=== PATIENT | female | born 1980 | race Hispanic/Latino ===

== ENCOUNTER 2020-06-15 20:55 | Emergency (ER) | payer SELFPAY ==
[2020-06-16 01:09] LABS: Basophils % 0.2 % (0-1.3); Hematocrit 30.8 % (36.0-45.0); Lymphocytes % 32.2 % (15.3-44.8); MPV 9.1 fL (7.6-11.3); RBC Red Blood Cell Count 5.34 M/uL (3.86-4.86)
[2020-06-16 01:34] LABS: ALT/SGPT 29 U/L (12-78); AST/SGOT 18 U/L (15-37); Albumin 4.1 g/dL (3.4-5.0); Alkaline Phosphatase 98 U/L (45-117); BUN Blood Urea Nitrogen 11 mg/dL (7-18); Bicarbonate 28 mmol/L (21-32); Bilirubin Direct < 0.1 mg/dL (0-0.2); Bilirubin Total 0.2 mg/dL (0.2-1.0); Glucose Level 81 mg/dL (74-106); Magnesium 2.1 mg/dL (1.8-2.4); NT PRO-BNP 60 pg/mL (<125); Potassium 3.2 mmol/L (3.5-5.1); Sodium Level 141 mmol/L (136-145); Troponin (Emerg Dept Use Only) < 0.02 ng/mL (0.0-0.045)
[2020-06-16 01:42] LABS: Anisocytosis 1+; Blood Morphology Comment NOTED (NOT SEEN); Hypochromasia 3+; Platelet Estimate INCR; White Blood Cell Scan OK (OK)
--- NOTE | 2020-06-16 01:47 | ER ---
Nurse's Notes [facility] Name: Juliana Marc Age: 40 yrs Sex: Female : 1980 Arrival Date: 06/15/2020 Time: 21:00 Bed 19 Private MD: Diagnosis: Hypokalemia;Iron deficiency anemia, unspecified;Essential (primary) hypertension;Weakness Presentation: 06/15 21:05 Chief complaint: Patient states: "I did some lab work last month and they said my aj1 hemoglobin was low and they said they wanted me to come to the emergency room but I felt fine so I didn't want to go. I went back yesterday and they said that it was lower and my doctor said she really wanted me to go to the emergency room, but I still didn't want to come. But then today I started feeling dizzy." States that she has not had abnormal bleeding that she is aware of. States that her hemoglobin was 8.5 last Friday. Coronavirus screen: At this time, the client does not indicate any symptoms associated with coronavirus-19. Ebola Screen: Patient denies travel to an Ebola-affected area in the 21 days before illness onset. Initial Sepsis Screen: Does the patient meet any 2 criteria? HR > 90 bpm. No. Patient's initial sepsis screen is negative. Does the patient have a suspected source of infection? No. Patient's initial sepsis screen is negative. Risk Assessment: Do you want to hurt yourself or someone else? Patient reports no desire to harm self or others. Onset of symptoms was 2019. 21:05 Method Of Arrival: Ambulatory aj1 21:05 Acuity: ADELINA 3 aj1 Triage Assessment: 21:10 General: Appears in no apparent distress. comfortable, Behavior is calm, cooperative, aj1 appropriate for age. Pain: Denies pain. Neuro: Level of Consciousness is awake, alert, obeys commands, Oriented to person, place, time, situation, Moves all extremities. Gait is steady, Speech is normal, Reports dizziness. Cardiovascular: Patient's skin is warm and dry. Respiratory: Airway is patent Respiratory effort is even, unlabored, Respiratory pattern is regular, symmetrical. REEL MAN: 21:10 LMP 05/2020 aj1 Historical: - Allergies: 21:10 No Known Allergies; aj1 - Home Meds: 21:10 metformin 500 mg Oral TG24 1 tabs 2 times per day [Active]; lisinopril 5 mg Oral tab 3 aj1 tabs once daily [Active]; lovastatin 10 mg Oral tab 1 tab once daily [Active]; glimepiride 2 mg Oral tab 2 tabs twice daily [Active]; Iron CR 325 mg Oral daily [Active]; - PMHx: 21:10 Diabetes - NIDDM; Hypertension; Hyperlipidemia; thyroid cancer; aj1 - Immunization history:: Flu vaccine is not up to date. - Social history:: Smoking status: Patient/guardian denies using tobacco. Screenin/18 00:00 Abuse screen: Denies threats or abuse. Denies injuries from another. Nutritional aj1 screening: No deficits noted. Tuberculosis screening: No symptoms or risk factors identified. 02:42 Fall Risk None identified. aj1 Assessment: 00:00 General: Appears in no apparent distress. comfortable, Behavior is calm, cooperative, aj1 appropriate for age. Pain: Denies pain. Neuro: Level of Consciousness is awake, alert, obeys commands, Oriented to person, place, time, situation, Moves all extremities. Full function Gait is steady, Speech is normal, Facial symmetry appears normal, Reports dizziness. Cardiovascular: Denies chest pain, shortness of breath, Heart tones S1 S2 present Patient's skin is warm and dry. Rhythm is sinus rhythm. Respiratory: Airway is patent Respiratory effort is even, unlabored, Respiratory pattern is regular, symmetrical. GI: No signs and/or symptoms were reported involving the gastrointestinal system. : No signs and/or symptoms were reported regarding the genitourinary system. EENT: No signs and/or symptoms were reported regarding the EENT system. Derm: No signs and/or symptoms reported regarding the dermatologic system. Skin is pink, warm \\T\\ dry. normal. Musculoskeletal: No signs and/or symptoms reported regarding the musculoskeletal system. Amputation of. 01:00 Reassessment: Patient appears in no apparent distress at this time. No changes from aj1 previously documented assessment. Patient and/or family updated on plan of care and expected duration. Pain level reassessed. Patient is alert, oriented x 3, equal unlabored respirations, skin warm/dry/pink. 02:00 Reassessment: Patient appears in no apparent distress at this time. No changes from aj1 previously documented assessment. Patient and/or family updated on plan of care and expected duration. Pain level reassessed. Patient is alert, oriented x 3, equal unlabored respirations, skin warm/dry/pink. Vital Signs: 06/15 21:05 BP 168 / 110; Pulse 107; Resp 18; Temp 97.8; Pulse Ox 100% on R/A; Weight 50.8 kg (R); aj1 Height 5 ft. 4 in. (162.56 cm) (R); Pain 0/10; 06/16 00:25 BP 164 / 106 Supine; Pulse 95; Resp 18; Pulse Ox 100% on R/A; aj1 00:27 BP 166 / 107 Sitting; Resp 94; aj1 00:30 BP 171 / 105 Standing; Pulse 98; aj1 01:30 BP 138 / 103; Pulse 94; Resp 18; Pulse Ox 100% on R/A; aj1 02:30 BP 153 / 105; Pulse 89; Resp 18; Pulse Ox 100% on R/A; aj1 06/15 21:05 Body Mass Index 19.22 (50.80 kg, 162.56 cm) aj1 ED Course: 06/15 21:00 Patient arrived in ED. am2 21:08 Triage completed. aj1 21:10 Arm band placed on Patient placed in waiting room, Patient notified of wait time. aj1 23:46 Damien Gonzalez MD is Attending Physician. [facility] 06/16 00:00 Patient has correct armband on for positive identification. Placed in gown. Bed in low aj1 position. Call light in reach. Side rails up X 1. monitor technician on. Pulse ox on. NIBP on. 00:00 No provider procedures requiring assistance completed. Inserted saline lock: 20 gauge aj1 in right antecubital area, using aseptic technique. Blood collected. 00:07 Tammy Kingston, RN is Primary Nurse. aj1 03:37 IV discontinued, intact, bleeding controlled, No redness/swelling at site. Pressure aj1 dressing applied. Administered Medications: 00:00 Drug: NS 0.9% 500 ml Route: IV; Rate: bolus; Site: right antecubital; aj1 03:37 Follow up: IV Status: Completed infusion; IV Intake: 500ml aj1 00:00 Drug: NS 0.9% 1000 ml Route: IV; Rate: 125 ml/hr; Site: right antecubital; aj1 03:37 Follow up: IV Status: Completed infusion; IV Intake: 250ml aj1 02:35 Drug: Potassium Effervescent Tablet 25 mEq Route: PO; aj1 03:37 Follow up: Response: No adverse reaction aj1 Intake: 03:37 IV: 250ml; Total: 250ml. aj1 03:37 IV: 500ml; Total: 750ml. aj1 Outcome: 01:46 Discharge ordered by . will 03:40 Discharged to home ambulatory. aj1 03:40 Condition: good 03:40 Discharge instructions given to patient, Instructed on discharge instructions, follow up and referral plans. medication usage, Demonstrated understanding of instructions, follow-up care, medications, Prescriptions given X 1. 03:40 Patient left the ED. aj1 Signatures: Tammy Kingston RN RN aj1 Damien Gonzalez MD MD cha Moreno, Amanda am2
--- NOTE | 2020-06-16 01:47 | EDPHYS ---
Physician Documentation [facility] Name: Juliana Marc Age: 40 yrs Sex: Female : 1980 Arrival Date: 06/15/2020 Time: 21:00 Bed 19 Private MD: ED Physician Damien Gonzalez HPI: 06/16 01:42 This 40 yrs old Female presents to ER via Ambulatory with complaints of will General Weakness, low hemoglobin. 01:42 weak, tired, sob, no fever , no pain. Onset: The symptoms/episode began/occurred 1 will day(s) ago. Severity of symptoms: At their worst the symptoms were mild moderate in the emergency department the symptoms have improved mildly. The patient has experienced similar episodes in the past, a few times. [employer] SOL[employer] ARCHITECT: 06/15 21:10 LMP 05/2020 aj1 Historical: - Allergies: 21:10 No Known Allergies; aj1 - Home Meds: 21:10 metformin 500 mg Oral TG24 1 tabs 2 times per day [Active]; lisinopril 5 mg Oral tab 3 aj1 tabs once daily [Active]; lovastatin 10 mg Oral tab 1 tab once daily [Active]; glimepiride 2 mg Oral tab 2 tabs twice daily [Active]; Iron CR 325 mg Oral daily [Active]; - PMHx: 21:10 Diabetes - NIDDM; Hypertension; Hyperlipidemia; thyroid cancer; aj1 - Immunization history:: Flu vaccine is not up to date. - Social history:: Smoking status: Patient/guardian denies using tobacco. ROS: 06/16 01:43 Constitutional: Negative for fever, chills, and weight loss, Eyes: Negative for injury, will pain, redness, and discharge, ENT: Negative for injury, pain, and discharge, Neck: Negative for injury, pain, and swelling, Cardiovascular: Negative for chest pain, palpitations, and edema, Respiratory: Negative for shortness of breath, cough, wheezing, and pleuritic chest pain, Abdomen/GI: Negative for abdominal pain, nausea, vomiting, diarrhea, and constipation, Back: Negative for injury and pain, : Negative for injury, bleeding, discharge, and swelling, MS/Extremity: Negative for injury and deformity, Psych: Negative for depression, anxiety, suicide ideation, homicidal ideation, and hallucinations, Allergy/Immunology: Negative for hives, rash, and allergies, Endocrine: Negative for neck swelling, polydipsia, polyuria, polyphagia, and marked weight changes, Hematologic/Lymphatic: Negative for swollen nodes, abnormal bleeding, and unusual bruising. Skin: Positive for pallor. Neuro: Positive for weakness. Exam: 01:43 Constitutional: This is a well developed, well nourished patient who is awake, alert, will and in no acute distress. Head/Face: Normocephalic, atraumatic. Eyes: Pupils equal round and reactive to light, extra-ocular motions intact. Lids and lashes normal. Conjunctiva and sclera are non-icteric and not injected. Cornea within normal limits. Periorbital areas with no swelling, redness, or edema. ENT: Nares patent. No nasal discharge, no septal abnormalities noted. Tympanic membranes are normal and external auditory canals are clear. Oropharynx with no redness, swelling, or masses, exudates, or evidence of obstruction, uvula midline. Mucous membranes moist. Neck: Trachea midline, no thyromegaly or masses palpated, and no cervical lymphadenopathy. Supple, full range of motion without nuchal rigidity, or vertebral point tenderness. No Meningismus. Chest/axilla: Normal chest wall appearance and motion. Nontender with no deformity. No lesions are appreciated. Cardiovascular: Regular rate and rhythm with a normal S1 and S2. No gallops, murmurs, or rubs. Normal PMI, no JVD. No pulse deficits. Respiratory: Lungs have equal breath sounds bilaterally, clear to auscultation and percussion. No rales, rhonchi or wheezes noted. No increased work of breathing, no retractions or nasal flaring. Abdomen/GI: Soft, non-tender, with normal bowel sounds. No distension or tympany. No guarding or rebound. No evidence of tenderness throughout. Back: No spinal tenderness. No costovertebral tenderness. Full range of motion. Skin: Warm, dry with normal turgor. Normal color with no rashes, no lesions, and no evidence of cellulitis. MS/ Extremity: Pulses equal, no cyanosis. Neurovascular intact. Full, normal range of motion. Neuro: Awake and alert, GCS 15, oriented to person, place, time, and situation. Cranial nerves II-XII grossly intact. Motor strength 5/5 in all extremities. Sensory grossly intact. Cerebellar exam normal. Normal gait. Psych: Awake, alert, with orientation to person, place and time. Behavior, mood, and affect are within normal limits. 01:48 Musculoskeletal/extremity: DVT Exam: No signs of deep vein thrombosis. no pain, no will swelling, no tenderness, negative Homans' sign noted on exam, no appreciated bluish discoloration, no erythema, no increased warmth. 01:49 ECG was reviewed by the Attending Physician. [facility] Vital Signs: 06/15 21:05 BP 168 / 110; Pulse 107; Resp 18; Temp 97.8; Pulse Ox 100% on R/A; Weight 50.8 kg (R); aj1 Height 5 ft. 4 in. (162.56 cm) (R); Pain 0/10; 06/16 00:25 BP 164 / 106 Supine; Pulse 95; Resp 18; Pulse Ox 100% on R/A; aj1 00:27 BP 166 / 107 Sitting; Resp 94; 1 00:30 BP 171 / 105 Standing; Pulse 98; 1 01:30 BP 138 / 103; Pulse 94; Resp 18; Pulse Ox 100% on R/A; 1 02:30 BP 153 / 105; Pulse 89; Resp 18; Pulse Ox 100% on R/A; aj 06/15 21:05 Body Mass Index 19.22 (50.80 kg, 162.56 cm) [facility] MDM: 06/15 23:47 Patient medically screened. [facility] 06/16 01:44 Differential Diagnosis flu. Data reviewed: vital signs, nurses notes, lab test [facility] result(s), EKG, radiologic studies, plain films. Data interpreted: media monitor: rate is 107 beats/min, Pulse oximetry: on room air is 100 %. Test interpretation: by ED physician or midlevel provider: ECG, plain radiologic studies. Counseling: I had a detailed discussion with the patient and/or guardian regarding: the historical points, exam findings, and any diagnostic results supporting the discharge/admit diagnosis, lab results. 06/15 23:45 Order name: Basic Metabolic Panel [facility] 06/15 23:45 Order name: CBC with Diff [facility] 06/15 23:45 Order name: LFT's [facility] 06/15 23:45 Order name: Magnesium [facility] 06/15 23:45 Order name: NT PRO-BNP [facility] 06/15 23:45 Order name: Troponin (emerg Dept Use Only) [facility] 06/15 23:45 Order name: Type And Screen [facility] 06/16 01:01 Order name: Urine --Ancillary (enter results) tt 06/16 01:01 Order name: Urine Dipstick--Ancillary (enter results) [facility] 06/16 01:17 Order name: CBC with Automated Diff; Complete Time: 01:48 EDID 06/16 01:34 Order name: Basic Metabolic Panel; Complete Time: 01:36 EDID 06/16 01:34 Order name: Liver (Hepatic) Function; Complete Time: 01:36 EDID 06/16 01:34 Order name: Troponin (Emerg Dept Use Only); Complete Time: 01:36 EDID 06/16 01:34 Order name: NT PRO-BNP; Complete Time: 01:36 EDID 06/15 23:45 Order name: XRAY Chest (1 view) [facility] 06/15 23:45 Order name: EKG; Complete Time: 12:17 [facility] 06/15 23:45 Order name: Cardiac monitoring; Complete Time: 01:19 [facility] 06/15 23:45 Order name: EKG - Nurse/Tech; Complete Time: 01:19 [facility] 06/15 23:45 Order name: IV Saline Lock; Complete Time: 01:19 [facility] 06/15 23:45 Order name: Labs collected and sent; Complete Time: 01:19 [facility] 06/15 23:45 Order name: O2 Per Protocol; Complete Time: 01:19 [facility] 06/15 23:45 Order name: O2 Sat Monitoring; Complete Time: 01:19 [facility] 06/15 23:45 Order name: Urine Dipstick-Ancillary (obtain specimen); Complete Time: 01:19 [facility] 06/15 23:45 Order name: Orthostatics; Complete Time: 00:35 [facility] 06/16 01:34 Order name: Magnesium; Complete Time: 01:36 EDID 06/16 01:43 Order name: CBC Smear Scan; Complete Time: 01:48 [facility] 06/16 01:53 Order name: Type and Screen EDMS EC:49 Rate is 90 beats/min. Rhythm is regular. QRS Hermon is Normal. HI interval is normal. QRS will interval is normal. QT interval is normal. No Q waves. T waves are Normal. No ST changes noted. Clinical impression: NSR w/ Non-specific ST/T Changes and No evidence of ischemia. Interpreted by me. Reviewed by me. Administered Medications: 00:00 Drug: NS 0.9% 500 ml Route: IV; Rate: bolus; Site: right antecubital; 03:37 Follow up: IV Status: Completed infusion; IV Intake: 500ml aj 00:00 Drug: NS 0.9% 1000 ml Route: IV; Rate: 125 ml/hr; Site: right antecubital; 03:37 Follow up: IV Status: Completed infusion; IV Intake: 250ml 02:35 Drug: Potassium Effervescent Tablet 25 mEq Route: PO; 03:37 Follow up: Response: No adverse reaction aj Disposition: 06/16/20 01:46 Discharged to Home. Impression: Hypokalemia, Iron deficiency anemia, unspecified, Essential (primary) hypertension, Weakness. - Condition is Stable. - Discharge Instructions: Iron Deficiency Anemia, Adult, Anemia, Nonspecific, Iron-Rich Diet, Potassium Content of Foods, Hypertension, Weakness, Fatigue, Hypertension, [id number], How to Take Your Blood Pressure, Pwau-[id number], Weakness, [id number], Iron Deficiency Anemia, Adult, [id number], Hypokalemia, Managing Your Hypertension. - Prescriptions for Ferrous Sulfate 325 mg (65 mg Iron) Oral Tablet - take 1 tablet by ORAL route every 8 hours; 90 tablet. - Medication Reconciliation Form, Thank You Letter, Antibiotic Education, Prescription Opioid Use form. - Follow up: Private Physician; When: 2 - 3 days; Reason: Recheck today's complaints, Continuance of care, Re-evaluation by your physician. - Problem is new. - Symptoms have improved. Signatures: Dispatcher [employer] EDTammy Escobar RN RN aj1 Damien Gonzalez MD MD cha Corrections: (The following items were deleted from the chart) 03:40 01:46 06/16/2020 01:46 Discharged to Home. Impression: Hypokalemia; Iron deficiency aj1 anemia, unspecified; Essential (primary) hypertension; Weakness. Condition is Stable. Forms are Medication Reconciliation Form, Thank You Letter, Antibiotic Education, Prescription Opioid Use. Follow up: Private Physician; When: 2 - 3 days; Reason: Recheck today's complaints, Continuance of care, Re-evaluation by your physician. Problem is new. Symptoms have improved. will
[2020-06-16] MEDS ORDERED: POTASSIUM 25 MEQ EFFERV TAB ONE (02:22)
[2020-06-16] MEDS ORDERED: NA CHLORIDE 0.9% 1,000 ML ONE (02:22)
--- NOTE | 2020-06-16 08:10 | RAD REPORT ---
EXAM DESCRIPTION: RAD - Chest Single View - 06/16/2020 7:34 am CLINICAL HISTORY: MALAISE, shortness of breath TECHNIQUE: AP portable chest image was obtained 06/16/2020 7:34 am . FINDINGS: Lungs are clear. Heart and vasculature are normal. No measurable pleural effusion and no p neumothorax. No acute bony abnormality seen. No acute aortic findings suspected. IMPRESSION: No acute cardiopulmonary process.
[2020-06-16 12:19] LABS: Urine Blood NEGATIVE (NEG); Urine Glucose NEGATIVE (NEG); Urine Protein 2+ (NEG); Urine Specific Gravity >1.030 (1.005-1.030); Urine pH 5.5 (5.0-7.0)
--- NOTE | 2020-06-17 14:01 | EKG ---
Test Date: 2020-06-16 Test Time: 01:01:54 Piggyback Clerk: ELIEZER MEASUREMENT RESULTS: Intervals: Rate: 90 DE: 140 QRSD: 80 QT: 392 QTc: 479 [place]: P: 47 DE: 140 QRS: 36 T: 45 INTERPRETIVE STATEMENTS: Normal sinus rhythm Normal ECG No previous ECG available for comparison Electronically Signed On 06-17-20 13:58:42 MAGAZINE HAND by Mk Contreras
[2020-06-19 11:26] VITALS: TEMP 97.8; O2SAT 100
[2020-06-19 11:32] VITALS: BP 153/105
== END 2020-06-16 03:40 | disposition home or self-care (01) ==
LOC: ER 20:55
DX: D50.9 Iron deficiency anemia, unspecified (principal); E87.6 Hypokalemia; I10 Essential (primary) hypertension; E11.9 Type 2 diabetes mellitus without complications; E78.5 Hyperlipidemia, unspecified; Z85.850 Personal history of malignant neoplasm of thyroid
CPT/HCPCS: 36415; 71045; 80048; 80076; 81003; 81025; 83735; 83880; 84484; 85025; 86850; 86900; 86901; 93005; 96360; 96361; 99284; J7030

== ENCOUNTER 2021-04-10 09:23 | Inpatient (IN) | payer SELFPAY ==
[2021-04-10 10:03] LABS: Urine Blood Trace-intact (Negative); Urine Glucose 1+ (Negative); Urine Protein 3+ (Negative); Urine Specific Gravity >=1.030 (1.005-1.030)
[2021-04-10 10:09] LABS: Protime INR 0.98
[2021-04-10 10:10] LABS: Absolute Lymphocytes (CBC) 1.1 K/uL (0.7-4.9); Hematocrit 27.1 % (36.0-45.0); Lymphocytes % 12.5 % (15.3-44.8); MPV 8.7 fL (7.6-11.3); RBC Red Blood Cell Count 4.93 M/uL (3.86-4.86)
[2021-04-10 10:29] LABS: ALT/SGPT 20 U/L (12-78); AST/SGOT 10 U/L (15-37); Albumin 3.6 g/dL (3.4-5.0); Alkaline Phosphatase 121 U/L (45-117); BUN Blood Urea Nitrogen 12 mg/dL (7-18); Bicarbonate 24 mmol/L (21-32); Bilirubin Direct < 0.1 mg/dL (0-0.2); Bilirubin Total 0.3 mg/dL (0.2-1.0); Glucose Level 276 mg/dL (74-106); Magnesium 1.7 mg/dL (1.8-2.4); NT PRO-BNP 36 pg/mL (<125); Potassium 3.9 mmol/L (3.5-5.1); Protein, Total 8.5 g/dL (6.4-8.2); Sodium Level 133 mmol/L (136-145); T3 Free 1.86 pg/mL (2.18-3.98); Troponin (Emerg Dept Use Only) < 0.02 ng/mL (0.0-0.045)
--- NOTE | 2021-04-10 10:33 | RAD REPORT ---
EXAM DESCRIPTION: CT - Head Brain Wo Cont - 04/10/2021 10:20 am CLINICAL HISTORY: Confused;Dizziness Headache, drowsiness COMPARISON: No comparisons TECHNIQUE: All CT scans are performed using dose optimization technique as appropriate and may inclu de automated exposure control or mA/KV adjustment according to patient size. FINDINGS: No intracranial hemorrhage, hydrocephalus or extra-axial fluid collection.An area of dimin ished density is seen in the right occipital lobe measuring 18 x 15 mm. [place]on area of diminished den sity is also seen in the right frontal lobe measuring 16 x 10 mm small rounded area of diminished den sity noted right parietal lobe measuring 8 x 7 mm. MRI the brain with contrast is recommended for fur ther assessment. The paranasal sinuses and mastoids are clear. The calvarium is intact. IMPRESSION: Areas of focal diminished density are seen particularly in the right cerebral hemisphere which are nonspecific. However, is recommended the patient undergo MRI of the brain with contrast fo r further assessment.
--- NOTE | 2021-04-10 10:57 | EKG ---
Test Date: 2021-04-10 Test Time: 09:46:06 Gluing Machine Operator Electronic: CANDACE MEASUREMENT RESULTS: Intervals: Rate: 121 PA: 128 QRSD: 74 QT: 330 QTc: 468 [place]: P: 48 PA: 128 QRS: 40 T: 45 INTERPRETIVE STATEMENTS: Sinus tachycardia Otherwise normal ECG Compared to ECG 06/16/2020 01:01:54 Sinus rhythm no longer present Electronically Signed On 04-10-21 10:56:43 CDT by Mk Contreras
[2021-04-10 11:38] LABS: Blood Morphology Comment NOTED (NOT SEEN); Elliptocytes 1+; Hypochromasia 3+; Platelet Estimate INCR; Platelets, Giant NOTED; Polychromasia SLIGHT; White Blood Cell Scan OK (OK)
[2021-04-10 14:30] LABS: Urine Specific Gravity/Preg >1.030 (1.005-1.030)
--- NOTE | 2021-04-10 15:07 | RAD REPORT ---
EXAM DESCRIPTION: RAD - Chest Single View - 04/10/2021 11:03 am CLINICAL HISTORY: speech Chest pain. COMPARISON: Chest Single View dated 06/16/2020 FINDINGS: Portable technique limits examination quality. The lungs are grossly clear. The heart is normal in size. No displaced fractures. IMPRESSION: No acute intrathoracic process suspected.
--- NOTE | 2021-04-10 15:56 | RAD REPORT ---
EXAM DESCRIPTION: MRI - Brain W/Wo Cont - 04/10/2021 3:18 pm CLINICAL HISTORY: Dizziness COMPARISON: Same-day head CT TECHNIQUE: Sagittal and axial T1-weighted images were obtained. Axial PD/heavily T2-weighted and T2- FLAIR images were obtained along with axial DWI/ADC mapping sequences. Axial and coronal post-contras t T1-weighted images were also obtained. FINDINGS: No intracranial hemorrhage, mass or acute infarction. Multifocal acute infarcts scattered throughout the right cerebral hemisphere, particularly within the subcortical and deep white matter. There are a few small cortical infarcts. There are some nodular areas of enhancement in the right par ietal lobe. Mastoid air cells and paranasal sinuses are clear. IMPRESSION: Multiple right-sided cerebral infarcts, the majority of which appear acute. These are pr imarily right MCA territory and watershed location. A couple of the areas of infarct enhance which wo uld be more typical of a subacute infarct. Therefore, acute on subacute infarcts is within the differ ential.
--- NOTE | 2021-04-10 16:43 | ER ---
Nurse's Notes [facility] Name: Juliana Marc Age: 41 yrs Sex: Female : 1980 Arrival Date: 04/10/2021 Time: 09:25 Bed 16 Private MD: Diagnosis: Multiple acute and subacute cerebral infarcts Presentation: 04/10 09:27 Chief complaint: Patient states: Tingling and numbness to L forearm that goes down to ss her L third and fourth fingers and difficulty speaking that began Friday morning when she woke up. Coronavirus screen: Client denies travel out of the [place] in the last 14 days. Ebola Screen: Patient denies exposure to infectious person. Patient denies travel to an Ebola-affected area in the 21 days before illness onset. No acute neurological deficit is noted. Pre-hospital glucose is not applicable to this patient. Initial Sepsis Screen: Does the patient have a suspected source of infection?. Initial Sepsis Screen: Does the patient meet any 2 criteria? No. Patient's initial sepsis screen is negative. Risk Assessment: Do you want to hurt yourself or someone else? Patient reports no desire to harm self or others. Onset of symptoms was April 07, 2021. 09:27 Method Of Arrival: Ambulatory ss 09:27 Acuity: ADELINA 2 ss Triage Assessment: 09:45 General: Appears well developed, well nourished, Behavior is cooperative, appropriate es2 for age. 09:56 The onset of the patients symptoms was April 07, 2021 at 08:00. Pain: Denies pain. es2 Neuro: Reports numbness in left arm. 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 pt had tubal ligation es2 Stroke Activation: Symptom onset > 6 hours Physician: Stroke Attending; Name: ; Notified At: ; Arrived At: Physician: Chief Stroke Resident; Name: ; Notified At: ; Arrived At: Physician: Stroke Resident; Name: ; Notified At: ; Arrived At: Physician: ED Attending; Name: ; Notified At: ; Arrived At: Physician: ED Resident; Name: ; Notified At: ; Arrived At: Historical: - Allergies: 09:30 No Known Allergies; ss - Home Meds: 09:30 Iron CR 325 mg Oral daily [Active]; glimepiride 4 mg oral tab 1 tab BID [Active]; ss lisinopril 5 mg Oral tab 1 tab once daily [Active]; lovastatin 10 mg Oral tab 1 tab once daily [Active]; metformin 500 mg Oral TG24 1 tabs 2 times per day [Active]; - PMHx: 09:30 Diabetes - NIDDM; Hyperlipidemia; Hypertension; THYROID CANCER; ss - PSHx: 09:30 Throidectomy; ss - Immunization history:: Client reports receiving the 2nd dose of the Covid vaccine. - Social history:: Smoking status: Patient denies any tobacco usage or history of. Screenin:44 Abuse screen: Denies threats or abuse. Denies injuries from another. Nutritional es2 screening: No deficits noted. Tuberculosis screening: No symptoms or risk factors identified. Fall Risk IV access (20 points). Mental Status- Oriented to own ability (0 pts). Assessment: 09:44 The patient has not been NPO before screening. The patient is alert, and able to follow es2 commands. 09:53 VAN Scoring:. The patient does not exhibit slurred or garbled speech. The patient is es2 not exhibiting difficulty speaking. The patient does not exhibit difficulty understanding words. The patient is able to swallow own secretions with no drooling or need for suction. 10:03 Patient tolerated one teaspoon of water. No drooling, immediate coughing, gurgling, or es2 clearing of the throat was noted. The patient tolerated 90mL of water. No drooling, immediate coughing, gurgling, or clearing of the throat was noted. The patient passed the bedside swallow screening. Oral medications may be given as ordered. Contact Physician for further diet orders. Pain: Denies pain. Neuro: Level of Consciousness is awake, alert, obeys commands, Oriented to person, place, time, situation, Appropriate for age. 10:25 Provider notified of bedside swallow screening results: Kyle Wang MD. es2 10:54 Reassessment: Pt states that patient had thyroid surgery about 6 months ago. es2 Thought symptoms were related to low calcium, was taking tums at home. Restless legs got worse last night. Reports no slurred speech or confusion until today was talking on the phone. 11:34 T-PA (Activase) Screening: Contraindications:. es2 Vital Signs: 09:27 BP 210 / 133; Resp 18; Weight 52.16 kg; Height 5 ft. 4 in. (162.56 cm); Pain 0/10; ss 09:31 Pulse 121; Pulse Ox 100% on R/A; ss 09:43 BP 175 / 131; Pulse 119; Resp 15; Temp 98.9; Pulse Ox 97% on R/A; es2 10:12 BP 190 / 122; Pulse 113; Resp 16; Pulse Ox 100% on R/A; es2 10:58 BP 171 / 106; Pulse 111; Resp 22; Pulse Ox 100% on R/A; es2 11:03 BP 196 / 105; Pulse 112; Resp 13; Pulse Ox 100% on R/A; es2 11:18 BP 151 / 100; Pulse 111; Resp 18; Pulse Ox 100% on R/A; es2 11:33 BP 165 / 100; Pulse 117; Resp 13; Pulse Ox 100% on R/A; es2 13:19 BP 147 / 93; Pulse 103; Resp 18; Pulse Ox 100% on R/A; es2 13:33 BP 140 / 93; Pulse 103; Resp 17; Pulse Ox 100% on R/A; es2 14:36 BP 123 / 92; Pulse 106; Resp 18; Pulse Ox 99% on R/A; es2 15:44 BP 127 / 110; Pulse 106; Resp 17; Pulse Ox 100% on R/A; es2 20:28 BP 130 / 91; Pulse 107; Resp 20; Temp 98.6; Pulse Ox 100% on R/A; Pain 0/10; bs2 09:27 Body Mass Index 19.74 (52.16 kg, 162.56 cm) NIH Stroke Scale Scores: 09:53 NIHSS Score: 1 es2 ED Course: 09:25 Patient arrived in ED. as 09:29 Triage completed. ss 09:30 Arm band placed on right wrist. ss 09:32 Trina Waite RN is Primary Nurse. es2 09:34 Kyle Wang MD is Attending Physician. kdr 09:44 Patient has correct armband on for positive identification. Placed in gown. Bed in low es2 position. Call light in reach. 09:44 No provider procedures requiring assistance completed. es2 09:46 EKG done, by ED staff, reviewed by Kyle Wang MD. tw5 09:55 Inserted saline lock: 20 gauge in right antecubital area, using aseptic technique. kj1 Blood collected. 10:04 TSH Sent. es2 10:04 T4 Free Sent. es2 10:04 T3 Free Sent. es2 10:04 Basic Metabolic Panel Sent. es2 10:04 CBC with Diff Sent. es2 10:04 Magnesium Sent. es2 10:04 NT PRO-BNP Sent. es2 10:04 LFT's Sent. es2 10:05 Troponin (emerg Dept Use Only) Sent. es2 10:05 PT-INR Sent. es2 10:08 Urine --Ancillary (enter results) Sent. es2 10:20 CT Head Brain wo Cont In Process Unspecified. EDMS 11:04 XRAY Chest (1 view) In Process Unspecified. EDMS 15:18 MRI - Brain W/Wo Cont In Process Unspecified. EDMS 16:41 Isaías Lawrence DO is Hospitalizing Provider. kdr 20:29 Patient admitted, IV remains in place. bs2 Administered Medications: 17:11 Drug: Aspirin 81 mg Route: PO; es2 20:30 Follow up: Response: No adverse reaction bs2 17:11 Drug: foLIC Acid 1 mg Route: PO; es2 20:30 Follow up: Response: No adverse reaction bs2 Point of Care Testing: Blood Glucose: 09:55 Blood Glucose: 257 mg/dL; es2 Ranges: Outcome: 16:42 Decision to Hospitalize by Provider. kdr 20:40 Admitted to Med/surg accompanied by tech, via wheelchair, room 211, with chart, Report bs2 called to Kandy RN 20:40 Condition: improved 20:40 Instructed on the need for admit. 20:54 Patient left the ED. bs2 NIH Stroke Scale - NIH Stroke Score Date: 04/10/2021 Time: 09:53 Total Score = 1 1a. Level of Consciousness (LOC) - 0(Alert) 1b. Level of Consciousness (LOC) (Month \T\ Age) - 0(Both) 1c. LOC Commands (Open \T\ Closes Eyes/Storage Management Architect) - 0(Both) 2. Best Gaze (Lateral Gaze Paresis) - 0(Normal) 3. Visual Field Loss - 0(No visual loss) 4. Facial Palsy - 0(Normal) 5a. Left Arm: Motor (10-second hold) - 0(No drift) 5b. Right Arm: Motor (10-second hold) - 0(No drift) 6a. Left Leg: Motor (5-second hold - always test supine) - 0(No drift) 6b. Right Leg: Motor (5-second hold - always test supine) - 0(No drift) 7. Limb Ataxia (finger/nose \T\ heel/maradiaga - test with eyes open) - 0(Absent) 8. Sensory Loss (pinprick arms/legs/face) - 1(Mild to moderate loss) 9. Best Language: Aphasia (description/naming/reading) - 0(No aphasia) 10. Dysarthria (speech clarity - read or repeat words) - 0(Normal) 11. Extinction and Inattention (visual/tactile/auditory/spatial/personal) - 0(No abnormality) Initials: es2 Signatures: Dispatcher [employer] Kyle Waddell MD MD kdr Martinez, Amelia as Smirch, Shelby, WILLY RN ss Roeslia Carrion kjEsme Giraldo RN RN bs2 Trina Waite RN RN es2 Leonila Sol tw5
--- NOTE | 2021-04-10 16:43 | EDPHYS ---
Physician Documentation [facility] Name: Juliana Marc Age: 41 yrs Sex: Female : 1980 Arrival Date: 04/10/2021 Time: 09:25 Bed 16 Private MD: ED Physician Kyle Wang HPI: 04/11 16:56 This 41 yrs old Female presents to ER via Ambulatory with complaints of kdr Numbness, Trouble Talking. 16:56 The patient's problem is reported as paresthesias, in left upper extremity. Onset: The kdr symptoms/episode began/occurred Friday when she awoke was when it was first noted. Duration: The episode is continuous, The episodes are intermittent, Has waxed and waned better improved over time. Context: symptoms became apparent at an unknown time. Patient's baseline: Neuro: alert and fully oriented, Motor: no deficits, Ambulation: walks without assistance, Speech: normal. The patient has not experienced similar symptoms in the past. The patient has not recently seen a physician. Complains of numbness and tingling that is been intermittent in her left arm from her elbow down to her third and fourth fingers. The symptoms began on Friday morning when she woke up. She also has complained of some difficulty speaking that is presently resolved. 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 - Social history:: Smoking status: Patient denies any tobacco usage or history of. ROS: 04/11 16:56 Constitutional: Negative for fever, chills, and weight loss, Eyes: Negative for injury, kdr pain, redness, and discharge, Neck: Negative for injury, pain, and swelling, Cardiovascular: Negative for chest pain, palpitations, and edema, Respiratory: Negative for shortness of breath, cough, wheezing, and pleuritic chest pain, Abdomen/GI: Negative for abdominal pain, nausea, vomiting, diarrhea, and constipation, Back: Negative for injury and pain, : Negative for injury, bleeding, discharge, and swelling, MS/Extremity: Negative for injury and deformity, Skin: Negative for injury, rash, and discoloration, Psych: Negative for depression, anxiety, suicide ideation, homicidal ideation, and hallucinations, Allergy/Immunology: Negative for hives, rash, and allergies, Endocrine: Negative for neck swelling, polydipsia, polyuria, polyphagia, and marked weight changes, Hematologic/Lymphatic: Negative for swollen nodes, abnormal bleeding, and unusual bruising. Neuro: Positive for speech changes, tingling. Exam: 04/10 09:53 ECG was reviewed by the Attending Physician. kdr 04/11 16:56 Constitutional: This is a well developed, well nourished patient who is awake, alert, kdr and in no acute distress. Head/Face: Normocephalic, atraumatic. Eyes: Pupils equal round and reactive to light, extra-ocular motions intact. Lids and lashes normal. Conjunctiva and sclera are non-icteric and not injected. Cornea within normal limits. Periorbital areas with no swelling, redness, or edema. Neck: Trachea midline, no thyromegaly or masses palpated, and no cervical lymphadenopathy. Supple, full range of motion without nuchal rigidity, or vertebral point tenderness. No Meningismus. Chest/axilla: Normal chest wall appearance and motion. Nontender with no deformity. No lesions are appreciated. Cardiovascular: Regular rate and rhythm with a normal S1 and S2. No gallops, murmurs, or rubs. Normal PMI, no JVD. No pulse deficits. Respiratory: Lungs have equal breath sounds bilaterally, clear to auscultation and percussion. No rales, rhonchi or wheezes noted. No increased work of breathing, no retractions or nasal flaring. Abdomen/GI: Soft, non-tender, with normal bowel sounds. No distension or tympany. No guarding or rebound. No evidence of tenderness throughout. Back: No spinal tenderness. No costovertebral tenderness. Full range of motion. Skin: Warm, dry with normal turgor. Normal color with no rashes, no lesions, and no evidence of cellulitis. MS/ Extremity: Pulses equal, no cyanosis. Neurovascular intact. Full, normal range of motion. Neuro: Awake and alert, GCS 15, oriented to person, place, time, and situation. Cranial nerves II-XII grossly intact. Motor strength 5/5 in all extremities. Sensory grossly intact. Cerebellar exam normal. Normal gait. Psych: Awake, alert, with orientation to person, place and time. Behavior, mood, and affect are within normal limits. 17:00 Radiologist reports: Negative kdr Vital Signs: 04/10 09:27 BP 210 / 133; Resp 18; Weight 52.16 kg; Height 5 ft. 4 in. (162.56 cm); Pain 0/10; ss 09:31 Pulse 121; Pulse Ox 100% on R/A; ss 09:43 BP 175 / 131; Pulse 119; Resp 15; Temp 98.9; Pulse Ox 97% on R/A; es2 10:12 BP 190 / 122; Pulse 113; Resp 16; Pulse Ox 100% on R/A; es2 10:58 BP 171 / 106; Pulse 111; Resp 22; Pulse Ox 100% on R/A; es2 11:03 BP 196 / 105; Pulse 112; Resp 13; Pulse Ox 100% on R/A; es2 11:18 BP 151 / 100; Pulse 111; Resp 18; Pulse Ox 100% on R/A; es2 11:33 BP 165 / 100; Pulse 117; Resp 13; Pulse Ox 100% on R/A; es2 13:19 BP 147 / 93; Pulse 103; Resp 18; Pulse Ox 100% on R/A; es2 13:33 BP 140 / 93; Pulse 103; Resp 17; Pulse Ox 100% on R/A; es2 14:36 BP 123 / 92; Pulse 106; Resp 18; Pulse Ox 99% on R/A; es2 15:44 BP 127 / 110; Pulse 106; Resp 17; Pulse Ox 100% on R/A; es2 20:28 BP 130 / 91; Pulse 107; Resp 20; Temp 98.6; Pulse Ox 100% on R/A; Pain 0/10; bs2 09:27 Body Mass Index 19.74 (52.16 kg, 162.56 cm) ss NIH Stroke Scale Scores: 09:53 NIHSS Score: 1 es2 MDM: 16:42 Patient medically screened. kdr 04/11 16:56 Data reviewed: vital signs, nurses notes, lab test result(s), radiologic studies. kdr Counseling: I had a detailed discussion with the patient and/or guardian regarding: the historical points, exam findings, and any diagnostic results supporting the discharge/admit diagnosis, lab results, radiology results, the need for further work-up and treatment in the hospital. 04/10 09:35 Order name: Basic Metabolic Panel; Complete Time: 14:00 kdr 04/10 09:35 Order name: CBC with Diff; Complete Time: 14:00 kdr 04/10 09:35 Order name: LFT's; Complete Time: 14:00 kdr 04/10 09:35 Order name: Magnesium; Complete Time: 14:00 kdr 04/10 09:35 Order name: NT PRO-BNP; Complete Time: 14:00 kdr 04/10 09:35 Order name: PT-INR; Complete Time: 14:00 kdr 04/10 09:35 Order name: Troponin (emerg Dept Use Only); Complete Time: 14:00 kdr 04/10 09:36 Order name: T3 Free; Complete Time: 14:00 kdr 04/10 09:36 Order name: T4 Free; Complete Time: 14:00 kdr 04/10 09:36 Order name: TSH; Complete Time: 14:00 kdr 04/10 10:00 Order name: Glucose, Ancillary Testing; Complete Time: 14:00 EDMS 04/10 10:03 Order name: Urine Dipstick-Ancillary; Complete Time: 14:00 EDMS 04/10 10:07 Order name: Urine --Ancillary (enter results); Complete Time: 16:17 bd 04/10 10:17 Order name: CBC Smear Scan; Complete Time: 14:00 EDMS 04/10 09:35 Order name: XRAY Chest (1 view); Complete Time: 16:17 kdr 04/10 09:35 Order name: EKG; Complete Time: 09:36 kdr 04/10 09:35 Order name: Cardiac monitoring; Complete Time: 10:04 kdr 04/10 09:35 Order name: EKG - Nurse/Tech; Complete Time: 10:04 kdr 04/10 09:35 Order name: IV Saline Lock; Complete Time: 10:04 kdr 04/10 09:35 Order name: Labs collected and sent; Complete Time: 10:04 kdr 04/10 09:36 Order name: CT Head Brain wo Cont; Complete Time: 14:00 kdr 04/10 14:25 Order name: MRI - Brain W/Wo Cont; Complete Time: 16:17 kdr 04/10 17:18 Order name: COVID-19 : Document "Date of Symptom Onset" if Symptomatic. iw 04/10 19:37 Order name: Troponin I EDMS 04/10 19:37 Order name: Thyroid Stimulating Hormone EDMS 04/10 19:49 Order name: T4 Free EDMS 04/10 20:02 Order name: SARS-COV-2 RT PCR EDMS 04/10 09:35 Order name: O2 Per Protocol; Complete Time: 10:04 kdr 04/10 09:35 Order name: O2 Sat Monitoring; Complete Time: 10:04 kdr EC/12 09:53 Rate is 121 beats/min. Rhythm is regular, Sinus tachycardia with No ectopy. QRS [place] is kdr Normal. [place] interval is normal. QRS interval is normal. QT interval is normal. Clinical impression: Sinus tachycardia. Administered Medications: 17:11 Drug: Aspirin 81 mg Route: PO; es2 20:30 Follow up: Response: No adverse reaction bs2 17:11 Drug: foLIC Acid 1 mg Route: PO; es2 20:30 Follow up: Response: No adverse reaction bs2 Point of Care Testing: Blood Glucose: 09:55 Blood Glucose: 257 mg/dL; es2 Ranges: Critical Glucose Levels:Adult <50 mg/dl or >400 mg/dl <40 mg/dl or >180 mg/dl Disposition Summary: 04/10/21 16:42 Hospitalization Ordered Hospitalization Status: Observation kdr Provider: Isaías Lawrence Location: Telemetry/MedSurg (observation) kdr Condition: Fair kdr Problem: new kdr Symptoms: have improved kdr Bed/Room Type: Standard [facility] Room Assignment: 211(04/10/21 20:10) mw Diagnosis - Multiple acute and subacute cerebral infarcts kdr Forms: - Medication Reconciliation Form kdr - SBAR form kdr NIH Stroke Scale - NIH Stroke Score Date: 04/10/2021 Time: 09:53 Total Score = 1 1a. Level of Consciousness (LOC) - 0(Alert) 1b. Level of Consciousness (LOC) (Month \\T\\ Age) - 0(Both) 1c. LOC Commands (Open \\T\\ Closes Eyes/Video Journalist) - 0(Both) 2. Best Gaze (Lateral Gaze Paresis) - 0(Normal) 3. Visual Field Loss - 0(No visual loss) 4. Facial Palsy - 0(Normal) 5a. Left Arm: Motor (10-second hold) - 0(No drift) 5b. Right Arm: Motor (10-second hold) - 0(No drift) 6a. Left Leg: Motor (5-second hold - always test supine) - 0(No drift) 6b. Right Leg: Motor (5-second hold - always test supine) - 0(No drift) 7. Limb Ataxia (finger/nose \\T\\ heel/maradiaga - test with eyes open) - 0(Absent) 8. Sensory Loss (pinprick arms/legs/face) - 1(Mild to moderate loss) 9. Best Language: Aphasia (description/naming/reading) - 0(No aphasia) 10. Dysarthria (speech clarity - read or repeat words) - 0(Normal) 11. Extinction and Inattention (visual/tactile/auditory/spatial/personal) - 0(No abnormality) Initials: es2 Signatures: Dispatcher [employer] EDBeata Marvin RN RN Kyle Gamboa MD MD [facility] Lashay Valencia RN RN ss Trina Waite RN RN es2 Ravindra, Esme AGUILERA bs2 Corrections: (The following items were deleted from the chart) 20:10 16:42 [facility]
[2021-04-10] MEDS ORDERED: ASPIRIN 81 MG CHEWABLE TABLET ONE (16:56)
[2021-04-10] MEDS ORDERED: FOLIC ACID 1 MG TABLET ONE (16:57)
[2021-04-10] MEDS ORDERED: LABETALOL 20 MG/4ML SYRINGE IV PRN ×2 (18:03→18:05)
[2021-04-10] MEDS ORDERED: HYDROCODONE/APAP 5/325 MG TAB PO PRN (18:08)
[2021-04-10] MEDS ORDERED: ACETAMINOPHEN 500 MG TAB PO PRN (18:10)
[2021-04-10] MEDS ORDERED: ONDANSETRON 4 MG/2 ML VIAL IV PRN (18:10)
--- NOTE | 2021-04-10 18:15 | P.HP ---
Certification for Inpatient Patient admitted to: Inpatient With expected LOS: >2 Midnights Patient will require the following post-hospital care: None Practitioner: I am a practitioner with admitting privileges, knowledge of patient current condition, hospital course, and medical plan of care. Services: Services provided to patient in accordance with Admission requirements found in Title 42 Section 412.3 of the Code of Federal Regulations Patient History Date of Service: 04/10/21 Reason for admission: CVA History of Present Illness: Patient is a 41-year-old female with a past medical history significant for DM 2, HLD, hypertension, thyroid cancer, anxiety disorder who presents with complaint of left third and fourth fingers\left forearm numbness that has been ongoing for the past 3 days. Patient reported that she woke up with the symptoms 3 days ago. Patient reported that she developed slurred speech this morning. Patient reported associated signs and symptoms of poor gait and left hand construction grip. Patient denies any other signs and symptoms. Symptoms are aggravated or relieved by nothing. Patient decided to present to the hospital for medical evaluation. Of note, patient reported that she was out of her BP meds for 1 week because medications were not refilled as PCP wanted her to come to the office before refilling her medication. Patient reported that she was diagnosed with anxiety a couple of years ago but has not been on any medication. At time of assessment, slurred speech is resolved. Home medications list reviewed: No - Past Medical/Surgical History Diabetic: Yes -: Hypertension -: DM2 -: HLD -: Anxiety disorder -: Throidectomy - Family History Family History: Reviewed- Non-Contributory (Reviewed and noted. Patient unaware of any family history) - Social History Smoking Status: Never smoker Alcohol use: No CD- Drugs: No Caffeine use: No Place of Residence: Home Review of Systems General: Weakness, Malaise Eyes: Unremarkable ENT: Unremarkable Respiratory: Unremarkable Cardiovascular: Unremarkable Gastrointestinal: Unremarkable Genitourinary: Unremarkable Musculoskeletal: Other (Poor left hand construction grip ) Integumentary: Unremarkable Neurological: Numbness, Incoordination (Poor gait ), Change in Speech Physical Examination - Physical Exam General: Alert, In no apparent distress, Oriented x3 HEENT: Atraumatic, PERRLA, Mucous membr. moist/pink, EOMI, Sclerae nonicteric Neck: Supple, 2+ carotid pulse no bruit, No LAD, Without JVD or thyroid abnormality Respiratory: Clear to auscultation bilaterally, Normal air movement Cardiovascular: Regular rate/rhythm, Normal S1 S2 Capillary refill: <2 Seconds Gastrointestinal: Normal bowel sounds, No tenderness Musculoskeletal: No tenderness Integumentary: No rashes Neurological: Normal gait, Normal speech, Normal tone, Normal affect Lymphatics: No axilla or inguinal lymphadenopathy External genitalia: Deferred Rectal: Deferred - Studies Laboratory Data (last 24 hrs) 04/10/21 09:55: PT 11.3, INR 0.98 04/10/21 09:55: WBC 8.70, Hgb 8.1 L, Hct 27.1 L, Plt Count 482 H 04/10/21 09:55: Sodium 133 L, Potassium 3.9, BUN 12, Creatinine 0.73, Glucose 276 H, Magnesium 1.7 L, Total Bilirubin 0.3, AST 10 L, ALT 20, Alkaline Phosphatase 121 H Assessment and Plan - Plan --CVA. As noted on MRI--- Multiple right-sided cerebral infarcts, the majority of which appear acute. Neurologist consulted. Patient placed on aspirin. PT eval and treat. Echocardiogram and carotid Doppler pending for further evaluation. We will await further recommendation from neurologist. --Hypertension. We will allow permissive hypertension and treat for SBP greater than 180 mmHg with labetalol as needed. Echocardiogram and carotid Doppler pending. We will await further recommendation from neurologist. --DM2. BS monitoring with sliding scale insulin. --HLD. Continue statin. --Anxiety disorder. Ativan as needed. --Anemia of chronic disease. H&H stable. We will continue to monitor hemoglobin and transfuse if less than 7.0. --History of thyroid cancer. Status unknown. TSH and free T4 pending. Continue supportive care. --OBDULIO. Slight depreciation in kidney function from previous levels. Currently renal functions at CKD 2. Continue p.o. hydration. We will continue to monitor renal functions. --DVT prophylaxis with Lovenox subQ I have had discussion about advanced directives with the patient during this hospital admission. Addressed code status and goals of care. Spent more than 30 minutes. Case discussed withpatient and nurse. The following document was completed using voice recognition software. This can produce generation technician errors that can at times significantly distort words and phrases. Please interpret any aspect of the note that is nonsensical in light of this fact. Discharge Plan: Home Plan to discharge in: 48 Hours - Advance Directives Does patient have a Living Will: No Does patient have a Durable POA for Healthcare: No - Code Status/Comfort Care Code Status Assessed: Yes Code Status: Full Code Physician Review: Patient Assessed, Agree with Above Assessment and Plan Critical Care: No
[2021-04-10 19:29] LABS: Troponin I < 0.02 ng/mL (0.0-0.045)
[2021-04-10] MEDS ORDERED: LORazepam 2 MG/ML VIAL IV PRN (19:40)
[2021-04-10] MEDS: INSULIN -REGULAR HUMAN 50 UNIT/0.5 ML ML SQ SCH (21:00)
[2021-04-10] MEDS ORDERED: ATORVASTATIN 40 MG TAB PO SCH (21:00)
[2021-04-10 21:26] VITALS: BMI 19.7
--- NOTE | 2021-04-10 21:39 | RAD REPORT ---
EXAM DESCRIPTION: US - CP - 04/10/2021 9:28 pm CLINICAL HISTORY: CVS COMPARISON: Brain W/Wo Cont dated 04/10/2021; Head Brain Wo Cont dated 04/10/2021 TECHNIQUE: Real-time sonographic evaluation of both carotid systems was performed. Doppler interroga tion was performed with waveform tracing bilaterally. FINDINGS: Normal high resistance waveforms are noted in both external carotid arteries. The common c arotid arteries and internal carotid arteries show normal low resistance waveforms. No significant plaque formation is seen. Peak systolic and end diastolic velocity values and the ICA/ CCA ratios are in the non-hemodynamically significant range. Antegrade flow seen in both vertebral arteries. IMPRESSION: No significant atherosclerotic changes noted. No evidence of a hemodynamically significant stenosis.
[2021-04-10] MEDS: FOLIC ACID 1 MG TABLET PO SCH (21:57)
[2021-04-10] MEDS: ENOXAPARIN 40 MG/0.4 ML SQ SCH (21:57)
[2021-04-11 05:50] LABS: BUN Blood Urea Nitrogen 10 mg/dL (7-18); Bicarbonate 27 mmol/L (21-32); Glucose Level 226 mg/dL (74-106); Potassium 3.8 mmol/L (3.5-5.1); Sodium Level 134 mmol/L (136-145)
[2021-04-11 06:01] LABS: Absolute Lymphocytes (CBC) 1.7 K/uL (0.7-4.9); Hematocrit 24.3 % (36.0-45.0); Lymphocytes % 23.5 % (15.3-44.8); MPV 8.7 fL (7.6-11.3); RBC Red Blood Cell Count 4.47 M/uL (3.86-4.86)
[2021-04-11 06:57] LABS: RBC Red Blood Cell Count 4.49 M/uL (3.86-4.86)
[2021-04-11 06:58] LABS: Ferritin 2.9 ng/mL (8-388)
[2021-04-11] MEDS: INSULIN -REGULAR HUMAN 50 UNIT/0.5 ML ML SQ SCH ×2 (07:30→11:30)
[2021-04-11] MEDS ORDERED: MAGNESIUM SULFATE 1 gm IVPB 1 GM/100 ML BAG IV ONE (08:00)
[2021-04-11] MEDS ORDERED: GLIMEPIRIDE 2 MG TABLET PO SCH (08:00)
[2021-04-11] MEDS: ENOXAPARIN 40 MG/0.4 ML SQ SCH (08:04)
[2021-04-11] MEDS: FOLIC ACID 1 MG TABLET PO SCH (08:04)
[2021-04-11] MEDS ORDERED: POTASSIUM 25 MEQ EFFERV TAB PO ONE (09:00)
[2021-04-11] MEDS ORDERED: ASPIRIN 81 MG CHEWABLE TABLET PO SCH (09:00)
[2021-04-11] MEDS ORDERED: PNEUMOCOCCAL VACCINE 0.5 ML IMVAC ONE (09:00)
[2021-04-11] MEDS ORDERED: SOD FERRIC GLUC COMPLX/SUCROSE 250 MG in NA CHLORIDE 0.9% 250 ML IV SCH (11:30)
[2021-04-11 11:31] LABS: Urine Appearance CLEAR (Clear); Urine Bilirubin NEGATIVE (Negative); Urine Blood NEGATIVE (Negative); Urine Color YELLOW (Yellow); Urine Glucose 1+ (Negative); Urine Protein 1+ (Negative)
[2021-04-11 11:32] LABS: Urine Microscopic Reflex ORDER UMIC
[2021-04-11 11:39] LABS: Urine Bacteria <20 /HPF (<20); Urine Mucus 2+ /HPF (NONE SEEN); Urine RBC <5 /HPF (NONE SEEN)
[2021-04-11 11:56] VITALS: O2SAT 95
--- NOTE | 2021-04-11 15:35 | P.DS ---
Admission Date: 04/10/21 Discharge Date: 04/11/21 Disposition: ROUTINE DISCHARGE Discharge Condition: GOOD Reason for Admission: CVA Consultations: Neurology - Dr. Mon Procedures: CT head (04/10): FINDINGS: No intracranial hemorrhage, hydrocephalus or extra-axial fluid collection.An area of diminished density is seen in the right occipital lobe measuring 18 x 15 mm. Pompey area of diminished density is also seen in the right frontal lobe measuring 16 x 10 mm small rounded area of diminished density noted right parietal lobe measuring 8 x 7 mm. MRI the brain with contrast is recommended for further assessment. The paranasal sinuses and mastoids are clear. The calvarium is intact. IMPRESSION: Areas of focal diminished density are seen particularly in the right cerebral hemisphere which are nonspecific. However, is recommended the patient undergo MRI of the brain with contrast for further assessment. MRI Brain (04/10): FINDINGS: No intracranial hemorrhage, mass or acute infarction. Multifocal acute infarcts scattered throughout the right cerebral hemisphere, particularly within the subcortical and deep white matter. There are a few small cortical infarcts. There are some nodular areas of enhancement in the right parietal lobe. Mastoid air cells and paranasal sinuses are clear. IMPRESSION: Multiple right-sided cerebral infarcts, the majority of which appear acute. These are primarily right MCA territory and watershed location. A couple of the areas of infarct enhance which would be more typical of a subacute infarct. Therefore, acute on subacute infarcts is within the differential. Carotid ultrasound (04/10): IMPRESSION: No significant atherosclerotic changes noted. No evidence of a hemodynamically significant stenosis. Problem list Acute CVA, R MCA territory / watershed location Hypertension, uncontrolled Diabetes mellitus type 2, [id number]-fwyigtqhw Anemia of chronic disease, severe iron deficiency anemia Hypothyroidism, history of thyroid cancer s/p iodine ablation and surgical excision Brief History of Present Illness: 41-year-old female with a past medical history significant for DM 2, HLD, hypertension, thyroid cancer, anxiety disorder who presents with complaint of left third and fourth fingers\left forearm numbness that has been ongoing for the past 3 days. Patient reported that she woke up with the symptoms 3 days ago. Patient reported that she developed slurred speech this morning. Patient reported associated signs and symptoms of poor gait and left hand beauty counselor. Patient denies any other signs and symptoms. Symptoms are aggravated or relieved by nothing. Patient decided to present to the hospital for medical evaluation. Of note, patient reported that she was out of her BP meds for 1 week because medications were not refilled as PCP wanted her to come to the office before refilling her medication. Patient reported that she was diagnosed with anxiety a couple of years ago but has not been on any medication. At time of assessment, slurred speech is resolved. Hospital Course: Patient was treated with aspirin, folic acid, high intensity statin for her new finding of CVA. Neurology was consulted. Her CVA was felt likely due to hypertension/hemodynamic issues. Patient did report running out of her antihypertensives and was noted to have significantly elevated blood pressure on presentation to the ER. She had moderate improvement of her symptoms. Overall with mild disability. Physical therapy was consulted, and recommended few exercises that she can do at home, otherwise really did not require physical therapy. She monitor on telemetry without any abnormalities. She underwent echocardiogram on day of discharge, and did not want to wait for the results. It was also felt that this was likely to results soon normal. She is discharged home to continue aspirin, folic acid, high intensity statin. She was advised to continue a strict diabetes control and to control her blood pressure. Follow-up with PCP in 3 to 5 days Follow-up with neurology She was also noted to be significantly anemic. Hemoglobin down to 7.5. Patient denied any bleeding. Work-up revealed severe iron deficiency anemia. She received 1 dose of 250 mg IV iron. She is to continue with her p.o. iron that was recently started in the last 2 weeks by her PCP. Iron: 18, transferrin saturation: 3.9%, ferritin: 2.9, TIBC: 461 Vital Signs/Physical Exam: Temp Pulse Resp BP Pulse Ox 98.6 F 96 H 17 148/92 H 95 04/11/21 11:40 04/11/21 11:40 04/11/21 11:40 04/11/21 11:40 04/11/21 11:40 General: Alert, In no apparent distress, Oriented x3 HEENT: Sclerae nonicteric Neck: Supple Respiratory: Clear to auscultation bilaterally, Normal air movement Cardiovascular: No edema, Regular rate/rhythm Gastrointestinal: Soft and benign, Non-distended, No tenderness Musculoskeletal: No erythema, No tenderness Integumentary: No rashes Neurological: Normal speech, Sensation intact, Cranial nerves 3-12 intact, Normal affect, Other (mild weaknes at L wrist and L beauty counselor. minimal weakness in L hip flexors.) Laboratory Data at Discharge: WBC 7.30 K/uL (4.3-10.9) D 04/11/21 05:16 Hgb 7.5 g/dL (12.0-15.0) L 04/11/21 05:16 Hct 24.3 % (36.0-45.0) L 04/11/21 05:16 Plt Count 451 K/uL (152-406) H 04/11/21 05:16 PT 11.3 SECONDS (9.5-12.5) 04/10/21 09:55 INR 0.98 04/10/21 09:55 Sodium 134 mmol/L (136-145) L 04/11/21 05:16 Potassium 3.8 mmol/L (3.5-5.1) 04/11/21 05:16 BUN 10 mg/dL (7-18) 04/11/21 05:16 Creatinine 0.60 mg/dL (0.55-1.3) 04/11/21 05:16 Glucose 226 mg/dL (74-106) H 04/11/21 05:16 Magnesium 1.7 mg/dL (1.8-2.4) L 04/10/21 09:55 Total Bilirubin 0.3 mg/dL (0.2-1.0) 04/10/21 09:55 AST 10 U/L (15-37) L 04/10/21 09:55 ALT 20 U/L (12-78) 04/10/21 09:55 Alkaline Phosphatase 121 U/L (45-117) H 04/10/21 09:55 Troponin I < 0.02 ng/mL (0.0-0.045) 04/10/21 18:46 Home Medications: Ferrous Sulfate 325 mg PO TID 04/10/21 Glimepiride 4 mg PO BID 04/10/21 Lisinopril [Zestril] 5 mg PO DAILY 04/10/21 Metformin HCl 500 mg PO BID 04/10/21 Aspirin [Aspirin EC 81 MG] 81 mg PO DAILY 30 Days #30 tablet.dr 04/11/21 Atorvastatin Calcium [Lipitor] 40 mg PO BEDTIME 30 Days #30 tab 04/11/21 Folic Acid 1 mg PO DAILY 30 Days #30 tablet 10/13/21 Levothyroxine [Synthroid*] 100 mcg PO [id number] 04/11/21 New Medications: Aspirin [Aspirin EC 81 MG] 81 mg PO DAILY 30 Days #30 tablet. Folic Acid 1 mg PO DAILY 30 Days #30 tablet Atorvastatin Calcium [Lipitor] 40 mg PO BEDTIME 30 Days #30 tab Physician Discharge Instructions: You were found to have an acute stroke affecting you right side of your brain. This was the cause of your weakness / numbness in your left arm/leg. Most likely due to high blood pressure / or sudden change/drop in your blood pressure. Continue home medications as prescribed. New prescriptions for aspirin, folic acid, and atorvastatin to help reduce your risk for further strokes. You were also noted to have severe iron deficiency anemia. You were given 1 dose of IV iron. Continue your iron pills at home. Recommend tight control of your blood sugars as well. Follow up with your PCP in 3-5 days. Follow up with Neurology in 1 month. Diet: ADA Activity: Ad morris Followup: Arian Mon MD [ASSOCIATE-ACTIVE - CAN ADMIT] - GENEVIEVE VALLEJO [Primary Care Provider] - Time spent managing pt's care (in minutes): 40
[2021-04-11 16:17] VITALS: BP 125/74; TEMP 98.9
[2021-04-12] MEDS ORDERED: LEVOTHYROXINE SOD 0.1 MG TAB PO SCH (06:00)
--- NOTE | 2021-04-12 07:40 | ECHO ---
HEIGHT: 5 ft 4 in WEIGHT: 114 lb 13.773 oz DATE OF STUDY: 04/11/[address]: Betina Alanis 2-DIMENSIONAL: YES M.MODE: YES DOPPLER: YES COLOR FLOW: YES TDS: NO PORTABLE: NO DEFINITY: NO BUBBLE STUDY: NO DIAGNOSIS: CEREBRAL VASCULAR ACCIDENT CARDIAC HISTORY: CATHERIZATION: NO SURGERY: NO PROSTHETIC VALVE: NO PACEMAKER: NO MEASUREMENTS (cm) DIASTOLIC (NORMALS) SYSTOLIC (NORMALS) IVSd 0.8 (0.6-1.2) LA Diam 3.1 (1.9-4.0) LVEF 66% LVIDd 4.5 (3.5-5.7) LVIDs 2.8 (2.0-3.5) %FS 36% LVPWd 0.9 (0.6-1.2) Ao Diam 2.6 (2.0-3.7) 2 DIMENSIONAL ASSESSMENT: RIGHT ATRIUM: NORMAL LEFT ATRIUM: NORMAL RIGHT VENTRICLE: NORMAL LEFT VENTRICLE: NORMAL TRICUSPID VALVE: NORMAL MITRAL VALVE: NORMAL PULMONIC VALVE: NORMAL AORTIC VALVE: NORMAL PERICARDIAL EFFUSION: NONE AORTIC ROOT: NORMAL LEFT VENTRICULAR WALL MOTION: NORMAL DOPPLER/COLOR FLOW: NORMAL COMMENTS: NORMAL 2D ECHOCARDIOGRAM WITH DOPPLER. NO CLOT OR VEGETATION. TECHNOLOGIST: Alie GIANG
== END 2021-04-11 15:45 | disposition home or self-care (01) | DRG 65 ==
LOC: ER 09:23 → ERHOLD 17:21 → 2ND 20:44
PROVIDERS: ADMIT Hospitalist; ATTEND Hospitalist
DX: I63.9 Cerebral infarction, unspecified (principal); G81.94 Hemiplegia, unspecified affecting left nondominant side; N17.9 Acute kidney failure, unspecified; R47.81 Slurred speech; I10 Essential (primary) hypertension; R29.701 NIHSS score 1; E11.9 Type 2 diabetes mellitus without complications; F41.9 Anxiety disorder, unspecified; E78.5 Hyperlipidemia, unspecified; D63.8 Anemia in other chronic diseases classified elsewhere; E03.9 Hypothyroidism, unspecified; D50.9 Iron deficiency anemia, unspecified; Z85.850 Personal history of malignant neoplasm of thyroid; Z20.822 Contact with and (suspected) exposure to COVID-19
CPT/HCPCS: 36415; 70450; 70553; 71045; 80048; 80076; 81003; 81015; 81025; 82728; 82947; 83036; 83540; 83735; 83880; 84439; 84443; 84466; 84481; 84484; 85025; 85044; 85610; 87086; 87088; 93005; 93306; 93880; 97116; 97161; 99285; A9577; J1650; J2405; J2916; J3475; J7050; U0003

== ENCOUNTER 2021-05-28 07:14 | Emergency (ER) | payer SELFPAY ==
--- OUTSIDE RECORDS SUMMARY | 2021-05-28 07:16 | XMS REPORT | Continuity of Care Document ---
:1980 Author Organization [facility] t Address [address] [place] [address] Dr. Ch[address] [place] [address] Care Team Providers Name Role Phone Braxton JEFFERY Primary Care Physician BRAXTON Attending Clinician Unavailable Kaya CHAMPAGNE Attending Clinician Unavailable Nurse, Pob Immunization Attending Clinician Unavailable Hector Mays DO Attending Clinician Marques JEFFERY Attending Clinician Renée AGUILERA Attending Clinician Unavailable Gilbert Attending Clinician Unavailable Yvette JEFFERY Attending Clinician Unavailable Andrea AGUILERA Attending Clinician Unavailable Leon AGUILERA Attending Clinician Unavailable Payers Payer Name Policy Type Policy Number Effective Date Expiration Date S ource Problems This patient has no known problems. Allergies, Adverse Reactions, Alerts This patient has no known allergies or adverse reactions. Social History Social Habit Start Date Stop Date Quantity Comments Source Sex Assigned At [birth year] [facility] 00:00:00 00:00:00 Smoking Status Start Date Stop Date Source Tobacco smoking consumption unknown [facility] Medications Ordered Filled Start Stop Current Ordering Indication Dosage Frequency Signature Comments Components Source Medication Medication Date Date Medication? Clinician (SIG) Name Name levothyroxi 2021- No [id number] 125ug QD Take 1 [place] 01-26 tablet Health (Synthroid, 00:00: 04:59 (125 mcg Levoxyl) 00 :00 total) by 125 MCG mouth 1 tablet (one) time each day. levothyroxi 2021- No [id number] 125ug QD Take 1 [place] [facility] 01-26 tablet Health (Synthroid, 00:00: 04:59 (125 mcg Levoxyl) 00 :00 total) by 125 MCG mouth 1 tablet (one) time each day. levothyroxi 2020- No [id number] 100ug QD Take 1 [facility] 01-12 tablet Health (Synthroid, 00:00: 00:00 (100 mcg Levoxyl) 00 :00 total) by 100 MCG mouth 1 tablet (one) time each day. Immunizations Ordered Filled Immunization Date Status Comments Sour e Immunization Name Name SARS-COV-2 COVID-19 2021-03-22 Completed [facility] PFIZER VACCINE 00:00:00 [facility] SARS-COV-2 COVID-19 2020-10-07 Completed Unive rsity of PFIZER VACCINE 00:00:00 [facility] Procedures Procedure Date / Time Performed Performing Clinician [facility] SARS-COV-2 COVID-19 2021-03-22 19:47:52 Doctor Unassigned, No [facility] [place] VACCINE,0.3ML,IM Name [facility] ([facility] Encounters Start End Encounter Admission Attending Care Care Encounter Source Date/Time Date/Time Type Type Clinicians Facility Department ID 2020-11-04 Outpatient JODY LIMON [facility] [id number] [place] 04:04:25 Health 2021-04-10 2021-04-10 Telephone Danya Kirkpatrick [facility] 6410 1.2.840.1 14 [id number] [place] 00:00:00 00:00:00 Danya Kirkpatrick [id number] [facility] [id number] 2021-03-22 2021-03-22 Imm/Inj Nurse, Adc Pob Immunization [facility] [id number] [facility] 14:46:00 14:46:20 Visit Jaciel Mays [id number] .10 [facility] [id number] Beatrice Candelario [id number] [place] [address] 2021-01-26 2021-01-26 Orders MARLO Mohan [id number] [place] 00:00:00 00:00:00 Only Genesis BIRD [id number] H [facility] MEDICAL [id number] [facility] [id number] 2021-01-11 2021-01-11 Telephone Renu Chinchilla [facility] 6410 1.2.840 .114 [id number] [place] 00:00:00 00:00:[address] [id number] Health [id number] 2020-12-05 2020-12-05 Telephone Danya Kirkpatrick [facility] 6410 1.2.840.1 14 [id number] [place] 00:00:00 00:00:[address] [id number] Health [id number] 2020-11-20 2020-11-20 Telephone Danya Kirkpatrick [facility] 6410 1.2.840.1 14 [id number] [place] 00:00:00 00:00:[address] [id number] Health [id number] 2020-11-18 2020-11-18 Telephone Yvette [facility]TP 6410 1.2.840.114 [id number] [place] 00:00:00 00:00:[address] [id number] Health [id number] 2020-11-13 2020-11-13 Telephone Renu Chinchilla [facility] 6410 1.2.840 .114 [id number] [place] 00:00:00 00:00:[address] [id number] Health [id number] 2020-11-10 2020-11-10 Telephone Fabiola Mendez [place] 1.2.840.1 14 [id number] [place] 00:00:00 00:00:00 Fabiola Mendez [id number] Health MEDICAL [id number] [place] [id number] 2020-11-10 2020-11-10 Telephone MARLO Mohan [id number] [place] 00:00:00 00:00:00 Genesis BIRD [id number] H [facility] MEDICAL [id number] [facility] [id number] 2020-11-10 2020-11-10 Telephone Dominic Quintero [place] 1.2.840.11 4 [id number] [place] 00:00:00 00:00:00 Dominic Quintero [id number] [facility] [id number] [place] [id number] 2020-08-07 2020-08-[address] [facility] [id number] [place] [address] 00:00:00 00:00:[address] Results Test Description Test Time Test Comments Results Result Comments Source [place] THYROID 2020-12-01 ABLATION / CANCER 14:45:34 I-[facility]VIDES : 1980 Sex: F *CLINICAL INDICATION: dx: c73, thyroid ca, mets to the lymphnodesMODALITY: Quik.io dual head gamma cameraTECHNIQUE: The patient was dosed with 125 mCi I-131 on 11/24/2020.FINDINGS: COMPARISON: NoneIntense uptake is present within the neck. No suspicious regional lymph nodes are visible.Physiologic uptake is noted within the nasopharynx and submandibular glands bilaterally.No pathologic chest, abdomen or pelvic uptake is seen. Physiologic uptake is noted within the liver.IMPRESSION:Thy roid bed localization, no evidence of regional or distant metastatic disease. AK THYROID 2020-11-24 ABLATION / CANCER 15:50:03 I-131 [facility] OLENA BENAVIDES : 1980 Sex: F *CLINICAL INDICATION: dx: c73, c77.0, papillary thyroid ca, metastasis to the head and neck lymphnodesTECHNIQUE: Informed consent is obtained. Benefits and risks are discussed with the patient in detail.Clinical diagnosis is primary thyroid cancer. The patient has undergone a thyroidectomy. TSH is greater than 40.FINDINGS:COMPARIS ON: [id number] mCi I-131 are administered orally. Patient is instructed to return to referring physician for followup.The patient to be isolated for 3 days. Current survey demonstrates 11 mRem at 1 meter. The patient will be surveyed in 2 days. Until that time, the patient is in complete isolation. Current survey 2.5 mRem at 1 meter (11/24).Isolation precautions and instructions have been discussed with the patient in detail.Thank you for allowing me to participate in the care of your patient.IMPRESSION:R adioactive iodine therapy performed with 126.2 mCi I-131.
--- NOTE | 2021-05-28 08:05 | RAD REPORT ---
EXAM DESCRIPTION: CT - Ct Stroke Brain Wo Cont - 05/28/2021 7:49 am CLINICAL HISTORY: Paresthesia, left-sided weakness COMPARISON: Head Brain Wo Cont dated 04/10/2021; Brain W/Wo Cont dated 04/10/2021 TECHNIQUE: Axial 5 millimeter thick images of the head were obtained without IV contrast. All CT scans are performed using dose optimization technique as appropriate and may include automated exposure control or mA/KV adjustment according to patient size. FINDINGS: No intracranial hemorrhage, mass, or cerebral edema. No acute cortical based infarction is identified. No cortical edema or sulcal effacement seen. Several areas of decreased attenuation are present in the right cerebral white matter largest 16 mm in the right frontal lobe. These correspond areas of prior CVA detailed on the April 10 MRI imaging. Ramos matter-white matter differentiation i s preserved. Visualized portions of the mastoid air cells, paranasal sinuses, and orbits are unremarkable. Findings telephoned to [place] 0800 hours. IMPRESSION: No CT evidence of acute intracranial process. Right cerebral prior CVA changes are evident. Nonhemorrhagic CVA can be masked in this setting. Repea t MRI imaging could be performed if there are ongoing concerns for new CVA.
[2021-05-28 08:14] LABS: Protime INR 0.93
[2021-05-28 08:15] LABS: Absolute Lymphocytes (CBC) 1.1 K/uL (0.7-4.9); Basophils % 1.3 % (0-1.3); Hematocrit 33.8 % (36.0-45.0); MPV 8.9 fL (7.6-11.3); RBC Red Blood Cell Count 5.18 M/uL (3.86-4.86)
[2021-05-28 08:24] LABS: BUN Blood Urea Nitrogen 11 mg/dL (7-18); Bicarbonate 27 mmol/L (21-32); Glucose Level 130 mg/dL (74-106); Potassium 3.8 mmol/L (3.5-5.1); Sodium Level 138 mmol/L (136-145)
--- NOTE | 2021-05-28 08:45 | RAD REPORT ---
EXAM DESCRIPTION: RAD - Chest Single View - 05/28/2021 8:18 am CLINICAL HISTORY: Paresthesia COMPARISON: April 10 TECHNIQUE: AP portable chest image was obtained 05/28/2021 8:18 am . FINDINGS: Lungs are clear. Heart and vasculature are normal. No measurable pleural effusion and no p neumothorax. No acute bony abnormality seen. No acute aortic findings suspected. IMPRESSION: No acute cardiopulmonary process. No significant change from comparison study.
[2021-05-28] MEDS ORDERED: ASPIRIN 325 MG TAB ONE (09:44)
[2021-05-28 09:45] LABS: Anisocytosis 2+; Blood Morphology Comment NOTED (NOT SEEN); Elliptocytes 1+; Hypochromasia 2+; Platelet Estimate ADEQ
--- NOTE | 2021-05-28 12:00 | RAD REPORT ---
EXAM DESCRIPTION: MRI - Brain Wo Cont - 05/28/2021 11:42 am CLINICAL HISTORY: paresthesia, history of CVA COMPARISON: Brain W/Wo Cont dated 04/10/2021; Ct Stroke Brain Wo Cont dated 05/28/2021 TECHNIQUE: Sagittal T1-weighted images were obtained along with axial PD, heavily T2-weighted and T2 -FLAIR images. Axial DWI and ADC mapping sequences were also obtained along with coronal heavily T2-w eighted images. FINDINGS: No intracranial hemorrhage and mass or edema. No midline shift. Ventricles are normal. Not e thickening or edema. No sulcal effacement. Diffusion-weighted imaging shows multiple areas of hyperintense signal in the right cerebral hemisphe re matching the April 10 imaging. On the current examination the areas do not have diminished signa l on ADC mapping. Hyperintense T2/IR signal is present with cystic or diminished T1 signal noted. The occipital lobes signal abnormalities of April 10 do not have a correlate on the diffusion-weighted imaging. No extra-axial fluid collections. Ramos-matter/white matter junction is preserved. Signal vo ids are seen as a normal finding in the major intracranial vessels. No globe or orbital content abnormality. No sella or supra sella abnormality seen. Mastoid air cells and paranasal sinuses are clear. IMPRESSION: No acute infarction changes are present. No hemorrhage, mass or other acute intracranial finding. Right cerebral signal abnormality present related to the infarctions seen on the April 10 imaging.
--- NOTE | 2021-05-28 12:50 | EDPHYS ---
Physician Documentation [facility] Name: Juliana Marc Age: 41 yrs Sex: Female : 1980 Arrival Date: 05/28/2021 Time: 07:15 Bed 15 Private MD: ED Physician Jose Elias Wolf HPI: 05/28 08:10 This 41 yrs old Female presents to ER via Ambulatory with complaints of pm1 Numbness left arm and left foot. 08:10 The patient presents to the emergency department with paresthesias of the Left foot, pm1 left hand and left forearm. Onset: The symptoms/episode began/occurred this morning, Patient woke up in the middle of the night with numbness to left hand and she assumed it was her calcium and took some tums and returned to sleep. Woke up at 0600 and numbness present to left foot and left forearm. Context: occurred at home. Associated signs and symptoms: Pertinent negatives: dizziness, weakness, Visual changes, speech changes. Severity of symptoms: in the emergency department the symptoms are worse Pain is currently a 0 / 10. Patient's baseline: Neuro: alert and fully oriented, Motor: no deficits, Ambulation: walks without assistance, Speech: normal, The patient has a previous history of CVA. 08:10 The patient has experienced a previous episode, approximately 2 months ago, symptoms pm1 similar to prior CVA. The patient has not recently seen a physician. Historical: - Allergies: 07:29 No Known Allergies; iw - Home Meds: 07:29 glimepiride 4 mg Oral tab 1 tab BID [Active]; Iron CR 325 mg Oral daily [Active]; iw metformin 500 mg Oral TG24 1 tab 2 times per day [Active]; 07:30 atorvastatin 40 mg oral tab 1 tab once daily [Active]; iw 07:30 lisinopril 30 mg oral tab once daily [Active]; iw - PMHx: 07:29 Diabetes - NIDDM; Hyperlipidemia; Hypertension; THYROID CANCER; iw - PSHx: 07:29 Throidectomy; iw ROS: 08:10 Constitutional: Negative for fever, chills, and weight loss, Eyes: Negative for injury, pm1 pain, redness, and discharge, ENT: Negative for injury, pain, and discharge, Cardiovascular: Negative for chest pain, palpitations, and edema, Respiratory: Negative for shortness of breath, cough, wheezing, and pleuritic chest pain, Abdomen/GI: Negative for abdominal pain, nausea, vomiting, diarrhea, and constipation, Back: Negative for injury and pain, MS/Extremity: Negative for injury and deformity, Skin: Negative for injury, rash, and discoloration. 08:10 Neuro: Positive for numbness, of the left hand, left foot and dorsal aspect of left forearm, Negative for dizziness, headache, weakness. 08:10 All other systems are negative. Exam: 08:10 Constitutional: This is a well developed, well nourished patient who is awake, alert, pm1 and in no acute distress. Head/Face: Normocephalic, atraumatic. 08:10 Back: No spinal tenderness. No costovertebral tenderness. Full range of motion. 08:10 Skin: Warm, dry with normal turgor. Normal color with no rashes, no lesions, and no evidence of cellulitis. MS/ Extremity: Pulses equal, no cyanosis. Neurovascular intact. Full, normal range of motion. 08:10 Eyes: Exam is negative for acute changes, Extraocular movements: no acute changes, Conjunctiva: normal, no injection. 08:10 ENT: Exam is negative for acute changes, Mouth: is normal, no acute changes, Lips: normal, moist, Oral mucosa: normal, pink and intact, moist. 08:10 Cardiovascular: Exam negative for acute changes, Rate: normal, Rhythm: regular, Pulses: no pulse deficits are appreciated, Edema: is not appreciated. 08:10 Respiratory: Exam negative for acute changes, respiratory distress, shortness of breath, Breath sounds: are clear throughout. 08:10 Abdomen/GI: Exam negative for acute changes, Inspection: abdomen appears normal, Palpation: abdomen is soft and non-tender, in all quadrants. 08:10 Neuro: Exam negative for acute changes, Orientation: is normal, Mentation: is normal, Cranial nerves: CN II- XII are normal as tested, Cerebellar function: normal finger to nose testing, Motor: is normal, moves all fours, Sensation: numbness, is not appreciated, Gait: is steady, at a normal pace, without difficulty. Vital Signs: 07:24 BP 150 / 105; Pulse 109; Resp 16; Temp 98.2; Pulse Ox 100% on R/A; iw 08:09 BP 158 / 113; Pulse 102; Resp 15; Pulse Ox 100% on R/A; Pain 0/10; ss 08:30 BP 140 / 99; Pulse 101; Pulse Ox 98% ; ss 09:48 BP 122 / 89; Pulse 112; Resp 17 S; Pulse Ox 100% on R/A; as6 10:53 BP 128 / 95; Pulse 103; Resp 20 S; Pulse Ox 100% on R/A; as6 13:12 BP 132 / 84; Pulse 97; Resp 18 S; Pulse Ox 99% on R/A; as6 NIH Stroke Scale Scores: 08:29 NIHSS Score: 0 ss [place] Coma Score: 08:09 Eye Response: spontaneous(4). Verbal Response: oriented(5). Motor Response: obeys ss commands(6). Total: 15. MDM: 07:33 Patient medically screened. pm1 08:10 ED course: Not a TPA candidate due to unknown onset of time. pm1 12:48 Data reviewed: vital signs. Data interpreted: Pulse oximetry: on room air is 100 %. pm1 Interpretation: normal. Counseling: I had a detailed discussion with the patient and/or guardian regarding: the historical points, exam findings, and any diagnostic results supporting the discharge/admit diagnosis, lab results, radiology results, the need for outpatient follow up, a family practitioner, to return to the emergency department if symptoms worsen or persist or if there are any questions or concerns that arise at home. 05/28 07:41 Order name: Basic Metabolic Panel; Complete Time: 08:25 pm1 05/28 07:41 Order name: CBC with Diff; Complete Time: 09:56 pm1 05/28 07:41 Order name: Protime (+inr); Complete Time: 08:21 pm1 05/28 07:41 Order name: Ptt, Activated; Complete Time: 08:21 pm1 05/28 08:09 Order name: TSH; Complete Time: 08:36 pm1 05/28 07:41 Order name: CT Stroke Brain w/o Contrast; Complete Time: 08:09 pm1 05/28 07:41 Order name: Stroke CXR 1 View; Complete Time: 08:50 pm1 05/28 07:41 Order name: EKG; Complete Time: 07:42 pm1 05/28 08:11 Order name: MRI - Brain Wo Cont pm1 05/28 08:57 Order name: SARS-COV-2 RT PCR; Complete Time: 09:37 EDMS 05/28 09:45 Order name: Manual Differential; Complete Time: 09:56 EDMS 05/28 12:04 Order name: MRI; Complete Time: 12:25 EDMS 05/28 07:41 Order name: Accucheck; Complete Time: 08:09 pm1 05/28 07:41 Order name: Cardiac monitoring; Complete Time: 08:08 pm1 05/28 07:41 Order name: EKG - Nurse/Tech; Complete Time: 08:29 pm1 05/28 07:41 Order name: IV Saline Lock; Complete Time: 08:08 pm1 05/28 07:41 Order name: Labs collected and sent; Complete Time: 08:08 pm1 05/28 07:41 Order name: NPO; Complete Time: 08:08 pm1 05/28 07:41 Order name: O2 Per Protocol; Complete Time: 08:08 pm1 05/28 07:41 Order name: O2 Sat Monitoring; Complete Time: 08:08 pm1 05/28 07:41 Order name: Stroke Swallow Screen; Complete Time: 08:08 pm1 Administered Medications: 09:48 Drug: Aspirin 325 mg Route: PO; as6 10:32 Follow up: Response: No adverse reaction as6 Disposition Summary: 05/28/21 12:49 Discharge Ordered Location: Home pm1 Problem: new pm1 Symptoms: have improved pm1 Condition: Stable pm1 Diagnosis - Paresthesia of skin pm1 Followup: pm1 - With: Emergency Department - When: As needed - Reason: Worsening of condition Followup: pm1 - With: Private Physician - When: 2 - 3 days - Reason: Recheck today's complaints, Continuance of care, Re-evaluation by your physician Discharge Instructions: - Discharge Summary Sheet pm1 - Paresthesia pm1 Forms: - Medication Reconciliation Form pm1 - Thank You Letter pm1 - Antibiotic Education pm1 - Prescription Opioid Use pm1 NIH Stroke Scale - NIH Stroke Score Date: 05/28/2021 Time: 08:29 Total Score = 0 1a. Level of Consciousness (LOC) - 0(Alert) 1b. Level of Consciousness (LOC) (Month \T\ Age) - 0(Both) 1c. LOC Commands (Open \T\ Closes Eyes/Interactive Marketing Strategist) - 0(Both) 2. Best Gaze (Lateral Gaze Paresis) - 0(Normal) 3. Visual Field Loss - 0(No visual loss) 4. Facial Palsy - 0(Normal) 5a. Left Arm: Motor (10-second hold) - 0(No drift) 5b. Right Arm: Motor (10-second hold) - 0(No drift) 6a. Left Leg: Motor (5-second hold - always test supine) - 0(No drift) 6b. Right Leg: Motor (5-second hold - always test supine) - 0(No drift) 7. Limb Ataxia (finger/nose \T\ heel/maradiaga - test with eyes open) - 0(Absent) 8. Sensory Loss (pinprick arms/legs/face) - 0(Normal) 9. Best Language: Aphasia (description/naming/reading) - 0(No aphasia) 10. Dysarthria (speech clarity - read or repeat words) - 0(Normal) 11. Extinction and Inattention (visual/tactile/auditory/spatial/personal) - 0(No abnormality) Initials: ss Signatures: Dispatcher [employer] EDTia Freeman, RN WILLY iw Carlyle Brito, FISH DRESSING MACHINE FEEDER FISH DRESSING MACHINE FEEDER pm1 Conner Toure, RN RN as6 Corrections: (The following items were deleted from the chart) 07:30 07:29 Home Meds: lovastatin 10 mg Oral tab 1 tab once daily; 07:31 07:29 Home Meds: lisinopril 5 mg Oral tab 1 tab once daily; 08:57 08:10 CORONAVIRUS+ ordered. EDMS EDMS
--- NOTE | 2021-05-28 12:50 | ER ---
Nurse's Notes [facility] Name: Juliana Marc Age: 41 yrs Sex: Female : 1980 Arrival Date: 05/28/2021 Time: 07:15 Bed 15 Private MD: Diagnosis: Paresthesia of skin Presentation: 05/28 07:24 Chief complaint: Patient states: woke up at 0600 this morning and had numbness to left iw fingers up to LFA and also has numbness in her left foot up into her left leg, went to sleep around 1030 pm, recently diagnosed with stroke with same symptoms, was told to take aspirin daily. Coronavirus screen: At this time, the client does not indicate any symptoms associated with coronavirus-19. Ebola Screen: Patient negative for fever greater than or equal to 101.5 degrees Fahrenheit, and additional compatible Ebola Virus Disease symptoms Patient denies exposure to infectious person. Patient denies travel to an Ebola-affected area in the 21 days before illness onset. No symptoms or risks identified at this time. Initial Sepsis Screen: Does the patient meet any 2 criteria? No. Patient's initial sepsis screen is negative. Does the patient have a suspected source of infection? No. Patient's initial sepsis screen is negative. Risk Assessment: Do you want to hurt yourself or someone else? Patient reports no desire to harm self or others. Onset of symptoms was May 28, 2021. 07:24 Method Of Arrival: Ambulatory iw 07:24 Acuity: ADELINA 3 iw Historical: - Allergies: 07:29 No Known Allergies; iw - Home Meds: 07:29 glimepiride 4 mg Oral tab 1 tab BID [Active]; Iron CR 325 mg Oral daily [Active]; iw metformin 500 mg Oral TG24 1 tab 2 times per day [Active]; 07:30 atorvastatin 40 mg oral tab 1 tab once daily [Active]; iw 07:30 lisinopril 30 mg oral tab once daily [Active]; iw - PMHx: 07:29 Diabetes - NIDDM; Hyperlipidemia; Hypertension; THYROID CANCER; iw - PSHx: 07:29 Throidectomy; iw Screenin:09 Abuse screen: Denies threats or abuse. Denies injuries from another. Nutritional ss screening: No deficits noted. Tuberculosis screening: Never had TB. Fall Risk None identified. 08:29 VAN Screening:. Patient has been NPO before screening. The patient is alert, able to ss follow commands. The patient does not exhibit slurred or garbled speech The patient is not exhibiting difficulty speaking. The patient does not exhibit difficulty understanding words. The patient is able to swallow own secretions with no drooling or need for suction. Patient tolerated one teaspoon of water. No drooling, immediate coughing, gurgling, or clearing of the throat was noted. The patient tolerated 90mL of water. No drooling, immediate coughing, gurgling, or clearing of the throat was noted. The patient passed the bedside swallow screening. Oral medications may be given as ordered. Contact Physician for further diet orders. Provider notified of bedside swallow screening results: Carlyle Brito NP. Assessment: 09:49 Reassessment: Patient and/or family updated on plan of care and expected duration. Pain as6 level reassessed. Patient is alert, oriented x 3, equal unlabored respirations, skin warm/dry/pink. 10:53 Reassessment: Patient and/or family updated on plan of care and expected duration. Pain as6 level reassessed. Patient is alert, oriented x 3, equal unlabored respirations, skin warm/dry/pink. 11:12 Reassessment: pt taken for MRI. as6 11:49 Reassessment: pt back from MRI. as6 Vital Signs: 07:24 BP 150 / 105; Pulse 109; Resp 16; Temp 98.2; Pulse Ox 100% on R/A; iw 08:09 BP 158 / 113; Pulse 102; Resp 15; Pulse Ox 100% on R/A; Pain 0/10; ss 08:30 BP 140 / 99; Pulse 101; Pulse Ox 98% ; ss 09:48 BP 122 / 89; Pulse 112; Resp 17 S; Pulse Ox 100% on R/A; as6 10:53 BP 128 / 95; Pulse 103; Resp 20 S; Pulse Ox 100% on R/A; as6 13:12 BP 132 / 84; Pulse 97; Resp 18 S; Pulse Ox 99% on R/A; as6 [place] Coma Score: 08:09 Eye Response: spontaneous(4). Verbal Response: oriented(5). Motor Response: obeys ss commands(6). Total: 15. NIH Stroke Scale Scores: 08:29 NIHSS Score: 0 ss ED Course: 07:15 Patient arrived in ED. ds1 07:29 Triage completed. iw 07:30 Arm band placed on. iw 07:33 Carlyle Brito NP is PHCP. pm1 07:33 Jose Elias Wolf MD is Attending Physician. pm1 07:48 CT Stroke Brain w/o Contrast In Process Unspecified. EDMS 08:01 Inserted saline lock: 22 gauge in right forearm, using aseptic technique. Blood ss collected. Patient maintains SpO2 saturation greater than 95% on room air. 08:08 Lashay Valencia, WILLY is Primary Nurse. ss 08:09 Patient has correct armband on for positive identification. Bed in low position. Call ss light in reach. Side rails up X2. gynecology teacher on. Pulse ox on. NIBP on. Warm blanket given. 08:18 Stroke CXR 1 View In Process Unspecified. EDMS 08:29 TSH Sent. ss 13:23 No provider procedures requiring assistance completed. IV discontinued, intact, as6 bleeding controlled, No redness/swelling at site. Pressure dressing applied. Administered Medications: 09:48 Drug: Aspirin 325 mg Route: PO; as6 10:32 Follow up: Response: No adverse reaction as6 Outcome: 12:49 Discharge ordered by MD. pm1 13:23 Discharged to home ambulatory, with family. as6 13:23 Condition: stable 13:23 Discharge instructions given to patient, Instructed on discharge instructions, follow up and referral plans. Demonstrated understanding of instructions, follow-up care. 13:24 Patient left the ED. as6 NIH Stroke Scale - NIH Stroke Score Date: 05/28/2021 Time: 08:29 Total Score = 0 1a. Level of Consciousness (LOC) - 0(Alert) 1b. Level of Consciousness (LOC) (Month \T\ Age) - 0(Both) 1c. LOC Commands (Open \T\ Closes Eyes/Pe Manager) - 0(Both) 2. Best Gaze (Lateral Gaze Paresis) - 0(Normal) 3. Visual Field Loss - 0(No visual loss) 4. Facial Palsy - 0(Normal) 5a. Left Arm: Motor (10-second hold) - 0(No drift) 5b. Right Arm: Motor (10-second hold) - 0(No drift) 6a. Left Leg: Motor (5-second hold - always test supine) - 0(No drift) 6b. Right Leg: Motor (5-second hold - always test supine) - 0(No drift) 7. Limb Ataxia (finger/nose \T\ heel/maradiaga - test with eyes open) - 0(Absent) 8. Sensory Loss (pinprick arms/legs/face) - 0(Normal) 9. Best Language: Aphasia (description/naming/reading) - 0(No aphasia) 10. Dysarthria (speech clarity - read or repeat words) - 0(Normal) 11. Extinction and Inattention (visual/tactile/auditory/spatial/personal) - 0(No abnormality) Initials: Signatures: Dispatcher [employer] EDMS Sandra Morfin ds1 iTa Edward RN RN Lashay Valencia RN RN Carlyle Brito, LAYOUT WORKER LAYOUT WORKER pm1 Conner Toure RN RN as6 Corrections: (The following items were deleted from the chart) 07:30 07:29 Home Meds: lovastatin 10 mg Oral tab 1 tab once daily; 07:31 07:29 Home Meds: lisinopril 5 mg Oral tab 1 tab once daily; 08:57 08:29 CORONAVIRUS+[email or web address] drawn and sent. EDMS
[2021-05-28 13:48] VITALS: TEMP 98.2
[2021-05-28 13:55] VITALS: BP 132/84; O2SAT 99
--- NOTE | 2021-05-29 07:09 | EKG ---
Test Date: 2021-05-28 Test Time: 08:20:43 Press Cleaner: MARGAUX MEASUREMENT RESULTS: Intervals: Rate: 97 ME: 136 QRSD: 76 QT: 368 QTc: 467 [place]: P: 37 ME: 136 QRS: 27 T: 33 INTERPRETIVE STATEMENTS: Normal sinus rhythm Normal ECG Compared to ECG 04/10/2021 09:46:06 Sinus tachycardia no longer present Electronically Signed On 05-29-21 07:04:54 DRILLING PLANT OPERATOR by Mk Contreras
== END 2021-05-28 13:24 | disposition home or self-care (01) ==
LOC: ER 07:14
DX: R20.2 Paresthesia of skin (principal); E11.9 Type 2 diabetes mellitus without complications; E78.5 Hyperlipidemia, unspecified; I10 Essential (primary) hypertension; Z85.850 Personal history of malignant neoplasm of thyroid; R29.700 NIHSS score 0
CPT/HCPCS: 36415; 70450; 70551; 71045; 80048; 84443; 85025; 85610; 85730; 93005; 99285; U0003

== ENCOUNTER 2023-05-01 05:28 | Observation (INO) | payer SELFPAY ==
--- OUTSIDE RECORDS SUMMARY | 2023-05-01 05:32 | XMS REPORT | Continuity of Care Document ---
:[address] [facility] t Address [address] [facility] [address] [place] [address] Care Team Providers Name Role Phone Jody Limon MD Primary Care Physician GIL KOEHLER Attending Clinician Unavailable JODY LIMON Attending Clinician Unavailable Danya Kirkpatrick LVN Attending Clinician Unavailable Genesis Mohan MD Attending Clinician Renu Chinchilla RN Attending Clinician Unavailable Yvette JEFFERY, Marlene Attending Clinician Unavailable Fabiola Mendez RN Attending Clinician Unavailable Leon AGUILERA, Dominic Attending Clinician Unavailable Payers Payer Name Policy Type Policy Number Effective Date Expiration Date S ource Problems This patient has no known problems. Allergies, Adverse Reactions, Alerts This patient has no known allergies or adverse reactions. Social History Social Habit Start Date Stop Date Quantity Comments Source Sexual orientation Method ist Hospital History [facility] Health Alcohol Std Drinks History [facility] Health Alcohol Binge History [facility] Health Alcohol Comment Exposure to Not sure [facility] SARS-CoV-2 (event) Tobacco use and 2021-10-04 2021-10-04 Smokeless [facility] exposure 00:00:00 00:00:00 tobacco non-user Alcohol intake 2021-10-04 2021-10-04 Lifetime [facility] 00:00:00 00:00:00 non-drinker (finding) History SDOH 2021-10-04 2021-10-04 1 [facility] Alcohol Frequency 00:00:00 00:00:00 History of Social 2020-08-07 2020-08-[address] function 00:00:00 00:00:00 Hospital Sex Ass[birth year] At [birth year] Sabianist 00:00:00 00:00:00 Hospital Smoking Status Start Date Stop Date Source Tobacco smoking consumption unknown [facility] Never smoked tobacco [facility] Medications Ordered Filled Start Stop Current Ordering Indication Dosage Frequency Signature Comments Components Source Medication Medication Date Date Medication? Clinician (SIG) Name Name Dose 2-1 No Unknown 0-31 00:00: 00 TAKE 1 2022-0 No 1 TABLET BY 7-25 MOUTH EVERY 00:00: DAY 00 TAKE 1 2022-0 No TABLET (125 7-25 MCG TOTAL) 00:00: BY MOUTH 1 00 (ONE) TIME EACH DAY. Dose 2022-0 No 1 Unknown 7 00:00: 00 TAKE 1 2022-0 No 1 TABLET BY 7-25 MOUTH EVERY 00:00: DAY 00 TAKE 1 2022-0 No TABLET (125 7-25 MCG TOTAL) 00:00: BY MOUTH 1 00 (ONE) TIME EACH DAY. Dose 2022-0 No 1 Unknown 7 00:00: 00 TAKE 1 2022-0 No 1 TABLET BY 7-23 MOUTH EVERY 00:00: DAY 00 TAKE 1 2022-0 No 1 TABLET BY 7-23 MOUTH EVERY 00:00: DAY 00 Dose 2022-0 No Unknown 429 00:00: 00 atorvastati 2022-0 No 1mg n 40 mg 4-29 tablet 00:00: 00 Dose 2022-0 No Unknown 4-29 00:00: 00 glimepiride 2022-0 No 1mg 4 mg tablet 4-29 00:00: 00 ferrous 2022-0 No 1(65 mg sulfate 325 4-29 iron) mg (65 mg 00:00: iron) 00 tablet metformin 2-0 No 1mg ER 1,000 mg 4-29 24 hr 00:00: tablet,exte 00 nded release atorvastati 2022-0 No 1mg n 40 mg 4-29 tablet 00:00: 00 lisinopril 2022-0 No 1mg 40 mg 4-29 tablet 00:00: 00 glimepiride 2022-0 No 1mg 4 mg tablet 4-29 00:00: 00 ferrous 2022-0 No 1(65 mg sulfate 325 4-29 iron) mg (65 mg 00:00: iron) 00 tablet levothyroxi 0 2022- No [id number] 125ug QD Take 1 [facility] 10-04 04-08 tablet Health (Synthroid, 00:00: 04:59 (125 mcg Levoxyl) 00 :00 total) by 125 MCG mouth 1 tablet (one) time each day. Dose 2021-0 No Unknown 3-21 00:00: 00 Dose 2021-0 No Unknown 3-21 00:00: 00 Dose 2021-0 No Unknown 3-21 00:00: 00 Dose 2021-0 No Unknown 3-21 00:00: 00 Dose 2021-0 No Unknown 3-21 00:00: 00 Dose 2021-0 No Unknown 3-21 00:00: 00 Dose 2021-0 No Unknown 3-21 00:00: 00 Dose 2021-0 No Unknown 3-21 00:00: 00 Dose 2021-0 No Unknown 3-21 00:00: 00 Dose 2021-0 No Unknown 3-21 00:00: 00 Dose 2021-0 No Unknown 3-21 00:00: 00 Dose 2021-0 No Unknown 3-21 00:00: 00 Dose 2021-0 No Unknown 3-21 00:00: 00 Dose 2-0 No Unknown 3-21 00:00: 00 Dose 2-0 No Unknown 3-21 00:00: 00 Dose 2021-0 No Unknown 3-21 00:00: 00 Dose 2-0 No Unknown 3-21 00:00: 00 Dose 2-0 No Unknown 3-21 00:00: 00 Dose 2-0 No Unknown 3-21 00:00: 00 Dose 2-0 No Unknown 3-21 00:00: 00 Dose 2-0 No Unknown 3-21 00:00: 00 Dose 2-0 No Unknown 3-21 00:00: 00 Dose 2-0 No Unknown 3-21 00:00: 00 Dose 2-0 No Unknown 3-21 00:00: 00 Dose 2-0 No Unknown 3-21 00:00: 00 Dose 2-0 No Unknown 3-21 00:00: 00 Dose 2-0 No Unknown 3-10 00:00: 00 Dose 2-0 No Unknown 3-10 00:00: 00 Dose 2-0 No Unknown 3-10 00:00: 00 Dose 2021-0 No Unknown 3-10 00:00: 00 Dose 2021-0 No Unknown 3-10 00:00: 00 Dose 2021-0 No Unknown 3-10 00:00: 00 Dose 2021-0 No Unknown 3-04 00:00: 00 Dose 2021-0 No Unknown 3-04 00:00: 00 Dose 2021-0 No Unknown 3-04 00:00: 00 Dose 2021-0 No Unknown 3-04 00:00: 00 Dose 2021-0 No Unknown 3-03 00:00: 00 Dose 2021-0 No Unknown 3-03 00:00: 00 Dose 2021-0 No Unknown 3-03 00:00: 00 Dose 2021-0 No Unknown 3-03 00:00: 00 levothyroxi 0 2022- No [id number] 125ug QD Take 1 [facility] ne 07-18 0120 tablet Health (Synthroid, 00:00: 05:59 (125 mcg Levoxyl) 00 :00 total) by 125 MCG mouth 1 tablet (one) time each day. levothyroxi 0 2021- No [id number] 125ug QD Take 1 UT ne 07-18 04-07 tablet Health (Synthroid, 00:00: 00:00 (125 mcg Levoxyl) 00 :00 total) by 125 MCG mouth 1 tablet (one) time each day. Dose 0 No Unknown 1-04 00:00: 00 Dose 2021-0 No Unknown 1-04 00:00: 00 Dose 2020-06 No Unknown 2-07 00:00: 00 Dose 2020-06 No Unknown 2-07 00:00: 00 Dose 2020-06 No Unknown 2-07 00:00: 00 Dose 2020-06 No Unknown 2-07 00:00: 00 Dose 2020-06 No Unknown 1-19 00:00: 00 Dose 2020-06 No Unknown 1-19 00:00: 00 Dose 2020-06 No Unknown 1-19 00:00: 00 Dose 2020-06 No Unknown 1-19 00:00: 00 Dose 2020-06 No Unknown 1-02 00:00: 00 atorvastati 2020-06 No 1mg n 40 mg 1-02 tablet 00:00: 00 Dose 2020-06 No Unknown 1-02 00:00: 00 atorvastati 2020-06 No 1mg n 40 mg 1-02 tablet 00:00: 00 Dose 2020- No Unknown 0-11 00:00: 00 Dose 2020- No Unknown 0-11 00:00: 00 Dose 2020-1 No Unknown 0-11 00:00: 00 Dose 2020-1 No Unknown 0-11 00:00: 00 Dose 2020- No Unknown 0-05 00:00: 00 Dose 2020- No Unknown 0-05 00:00: 00 Dose 2020-1 No Unknown 0-02 00:00: 00 Dose 2020-06 No Unknown 0-02 00:00: 00 lovastatin 2020-06 No 1mg 10 mg 0-02 tablet 00:00: 00 Dose 2020-06 No Unknown 0-02 00:00: 00 Dose 2020-06 No Unknown 0-02 00:00: 00 lovastatin 1 No 1mg 10 mg 0-02 tablet 00:00: 00 levothyroxi 2020-0 2- No [id number] 125ug QD Take 1 [facility] ne 01-26 tablet Health (Synthroid, 00:00: 00:00 (125 mcg Levoxyl) 00 :00 total) by 125 MCG mouth 1 tablet (one) time each day. Dose 2020-0 No Unknown 6- 00:00: 00 Dose 2020-0 No Unknown 6- 00:00: 00 glimepiride 2020-0 No 1mg 2 mg tablet 12-06 00:00: 00 lovastatin 2020-0 No 1mg 10 mg 6-09 tablet 00:00: 00 glimepiride 2020-0 No 1mg 2 mg tablet 12-06 00:00: 00 lovastatin 2020-0 No 1mg 10 mg 6-09 tablet 00:00: 00 metformin 1-0 No 2mg 500 mg 4-24 tablet 00:00: 00 metformin 1-0 No 2mg 500 mg 4-24 tablet 00:00: 00 glimepiride 2020-0 No 1mg 2 mg tablet 10-06 00:00: 00 glimepiride 2020-0 No 1mg 2 mg tablet 10-06 00:00: 00 lisinopril 1-0 No 1mg 20 mg 2-01 tablet 00:00: 00 lovastatin 2020-0 No 1mg 10 mg 2-01 tablet 00:00: 00 lisinopril 2020-0 No 1mg 20 mg 2-01 tablet 00:00: 00 lovastatin 2020-0 No 1mg 10 mg 2- tablet 00:00: 00 metformin 2020-0 No 2mg 500 mg 1-20 tablet 00:00: 00 metformin 2020-0 No 2mg 500 mg 1-20 tablet 00:00: 00 lisinopril 2019- No 3mg 5 mg tablet 2- 00:00: 00 lisinopril 2019- No 3mg 5 mg tablet 2- 00:00: 00 glimepiride 2019- No 1mg 2 mg tablet 1-14 00:00: 00 Iron 2019- No 1(65 mg (ferrous 1-14 iron) sulfate) 00:00: 325 mg (65 00 mg iron) tablet glimepiride 2019-06 No 1mg 2 mg tablet 1-14 00:00: 00 Iron 2019-1 No 1(65 mg (ferrous 1-14 iron) sulfate) 00:00: 325 mg (65 00 mg iron) tablet lisinopril 2019-06 No 1mg 5 mg tablet 1-13 00:00: 00 lisinopril 2019-06 No 3mg 5 mg tablet 1-13 00:00: 00 metformin 2019- No 2mg 500 mg 1-13 tablet 00:00: 00 lovastatin 2019-1 No 1mg 10 mg 1-13 tablet 00:00: 00 lisinopril 2019-06 No 1mg 5 mg tablet 1-13 00:00: 00 lisinopril 2019-06 No 3mg 5 mg tablet 1-13 00:00: 00 metformin 2019-1 No 2mg 500 mg 1-13 tablet 00:00: 00 lovastatin 2019-1 No 1mg 10 mg 1-13 tablet 00:00: 00 lisinopril 2017-0 No 1mg 5 mg tablet 3- 00:00: 00 lovastatin 2017-0 No 1mg 10 mg 3-02 tablet 00:00: 00 metformin 2017-0 No mg 500 mg 3-02 tablet 00:00: 00 ferrous 2017-0 No 1(65 mg sulfate 325 3-02 iron) mg (65 mg 00:00: iron) 00 tablet lisinopril 2018-0 No 1mg 5 mg tablet 3-02 00:00: 00 lovastatin 2018-0 No 1mg 10 mg 3-02 tablet 00:00: 00 metformin 2018-0 No mg 500 mg 3-02 tablet 00:00: 00 ferrous 2018-0 No 1(65 mg sulfate 325 3 iron) mg (65 mg 00:00: iron) 00 tablet lisinopril 2018-0 No 1mg 5 mg tablet 2-17 00:00: 00 lovastatin 2018-0 No 1mg 10 mg 2-17 tablet 00:00: 00 metformin 2018-0 No mg 500 mg 2-17 tablet 00:00: 00 lisinopril 2018-0 No 1mg 5 mg tablet 2-17 00:00: 00 lovastatin 2018-0 No 1mg 10 mg 2-17 tablet 00:00: 00 metformin 2018-0 No mg 500 mg 2-17 tablet 00:00: 00 Vital Signs Vital Name Observation Time Observation Value Comments Source Systolic blood pressure 2021-10-04 16:09:00 143 mm[Hg] [facility] Diastolic blood pressure 2021-10-04 16:09:00 99 mm[Hg] [facility] Heart rate 2021-10-04 16:09:00 102 /min [facility] Respiratory rate 2021-10-04 16:09:00 16 /min [facility] Body height 2021-10-04 16:09:00 162.6 cm [facility] Body weight 2021-10-04 16:09:00 55.339 kg [facility] BMI 2021-10-04 16:09:00 20.94 kg/m2 [facility] BP Systolic 2022-05-17 10:59:00 131 mm[Hg] BP Diastolic 2022-05-17 10:59:00 88 mm[Hg] Weight Measured 2022-05-17 10:59:00 128.40 pounds Height Measured 2022-05-17 10:59:00 62.50 inches Body Temperature 2022-05-17 10:59:00 98.30 degrees Heart Rate 2022-05-17 10:59:00 112.00 /min Respiratory Rate 2022-05-17 10:59:00 BP Systolic 2022-01-21 14:51:00 132 mm[Hg] BP Diastolic 2022-01-21 14:51:00 89 mm[Hg] Weight Measured 2022-01-21 14:51:00 123.60 pounds Height Measured 2022-01-21 14:51:00 62.50 inches Body Temperature 2022-01-21 14:51:00 98.10 degrees Heart Rate 2022-01-21 14:51:00 112.00 /min Respiratory Rate 2022-01-21 14:51:00 18.00 /min BP Systolic 2021-10-26 11:13:00 114 mm[Hg] BP Diastolic 2021-10-26 11:13:00 87 mm[Hg] Weight Measured 2021-10-26 11:13:00 119.20 pounds Height Measured 2021-10-26 11:13:00 62.50 inches Body Temperature 2021-10-26 11:13:00 98.30 degrees Heart Rate 2021-10-26 11:13:00 96.00 /min Respiratory Rate 2021-10-26 11:13:00 BP Systolic 2021-10-26 10:54:00 144 mm[Hg] BP Diastolic 2021-10-26 10:54:00 87 mm[Hg] Weight Measured 2021-10-26 10:54:00 119.20 pounds Height Measured 2021-10-26 10:54:00 62.50 inches Body Temperature 2021-10-26 10:54:00 98.30 degrees Heart Rate 2021-10-26 10:54:00 96.00 /min Respiratory Rate 2021-10-26 10:54:00 BP Systolic 2021-09-17 15:38:00 151 mm[Hg] BP Diastolic 2021-09-17 15:38:00 99 mm[Hg] Weight Measured 2021-09-17 15:38:00 122.20 pounds Height Measured 2021-09-17 15:38:00 62.50 inches Body Temperature 2021-09-17 15:38:00 98.30 degrees Heart Rate 2021-09-17 15:38:00 111.00 /min Respiratory Rate 2021-09-17 15:38:00 16.00 /min BP Systolic 2021-06-05 15:05:00 183 mm[Hg] BP Diastolic 2021-06-05 15:05:00 91 mm[Hg] Weight Measured 2021-06-05 15:05:00 116.00 pounds Height Measured 2021-06-05 15:05:00 62.50 inches Body Temperature 2021-06-05 15:05:00 98.10 degrees Heart Rate 2021-06-05 15:05:00 110.00 /min Respiratory Rate 2021-06-05 15:05:00 17.00 /min BP Systolic 2021-05-18 08:39:00 159 mm[Hg] BP Diastolic 2021-05-18 08:39:00 97 mm[Hg] Weight Measured 2021-05-18 08:39:00 117.80 pounds Height Measured 2021-05-18 08:39:00 62.50 inches Body Temperature 2021-05-18 08:39:00 98.20 degrees Heart Rate 2021-05-18 08:39:00 98.00 /min Respiratory Rate 2021-05-18 08:39:00 17.00 /min BP Systolic 2021-05-01 08:19:00 162 mm[Hg] BP Diastolic 2021-05-01 08:19:00 108 mm[Hg] Weight Measured 2021-05-01 08:19:00 117.20 pounds Height Measured 2021-05-01 08:19:00 62.50 inches Body Temperature 2021-05-01 08:19:00 98.10 degrees Heart Rate 2021-05-01 08:19:00 94.00 /min Respiratory Rate 2021-05-01 08:19:00 17.00 /min BP Systolic 2021-03-31 10:47:00 167 mm[Hg] BP Diastolic 2021-03-31 10:47:00 99 mm[Hg] Weight Measured 2021-03-31 10:47:00 115.60 pounds Height Measured 2021-03-31 10:47:00 62.50 inches Body Temperature 2021-03-31 10:47:00 98.30 degrees Heart Rate 2021-03-31 10:47:00 104.00 /min Respiratory Rate 2021-03-31 10:47:00 17.00 /min BP Systolic 2020-07-31 14:53:00 152 mm[Hg] BP Diastolic 2020-07-31 14:53:00 100 mm[Hg] Weight Measured 2020-07-31 14:53:00 114.20 pounds Height Measured 2020-07-31 14:53:00 62.50 inches Body Temperature 2020-07-31 14:53:00 99.10 degrees Heart Rate 2020-07-31 14:53:00 111.00 /min Respiratory Rate 2020-07-31 14:53:00 17.00 /min BP Systolic 2020-06-08 11:05:00 164 mm[Hg] BP Diastolic 2020-06-08 11:05:00 101 mm[Hg] Weight Measured 2020-06-08 11:05:00 112.60 pounds Height Measured 2020-06-08 11:05:00 62.50 inches Body Temperature 2020-06-08 11:05:00 Heart Rate 2020-06-08 11:05:00 104.00 /min Respiratory Rate 2020-06-08 11:05:00 16.00 /min Procedures This patient has no known procedures. Plan of Care Planned Activity Planned Date Details Comments Source Goal Plan of Care Note [code = 78696-0] Goal Plan of Care Note [code = 22849-5] Goal Plan of Care Note [code = 45835-2] Goal Plan of Care Note [code = 59741-8] Goal Plan of Care Note [code = 30801-0] Goal Plan of Care Note [code = 15121-7] Goal Plan of Care Note [code = 03814-5] Goal Plan of Care Note [code = 33794-9] Goal Plan of Care Note [code = 01283-0] Goal Plan of Care Note [code = 36173-5] Goal Plan of Care Note [code = 78376-8] Goal Plan of Care Note [code = 60249-4] Goal Plan of Care Note [code = 50042-6] Goal Plan of Care Note [code = 93759-8] Goal Plan of Care Note [code = 09348-9] Goal Plan of Care Note [code = 72507-9] Goal Plan of Care Note [code = 55537-2] Goal Plan of Care Note [code = 09691-0] Goal Plan of Care Note [code = 29105-2] Goal Plan of Care Note [code = 63437-3] Goal Plan of Care Note [code = 18898-3] Goal Plan of Care Note [code = 53735-4] Goal Plan of Care Note [code = 30375-7] Goal Plan of Care Note [code = 15754-2] Goal Plan of Care Note [code = 71659-5] Goal Plan of Care Note [code = 21685-0] Goal Plan of Care Note [code = 27250-6] Goal Plan of Care Note [code = 56366-6] Goal Plan of Care Note [code = 19546-9] Goal Plan of Care Note [code = 49631-3] Goal Plan of Care Note [code = 14880-4] Goal Plan of Care Note [code = 08098-8] Goal Plan of Care Note [code = 48216-7] Goal Plan of Care Note [code = 11845-8] Goal Plan of Care Note [code = 54086-2] Encounters Start End Encounter Admission Attending Care Care Encounter Source Date/Time Date/Time Type Type Clinicians Facility Department ID 2021-07-19 Outpatient [facility] [id number] [place] 10:15:05 [facility] 2021-07-19 Outpatient [facility] [id number] [place] 09:40:02 [facility] 2020-11-04 Outpatient JODY LIMON [facility] [id number] [place] 04:04:[address] [facility] 2023-04-04 2023-04-04 Outpatient SFA SFA [id number] [place] 15:40:37 15:40:37 1006 F Brooks 2022-10-10 2022-10-10 Outpatient SFA SFA [id number] 023 [place] 11:37:34 11:37:34 0413 F Brooks 2022-05-20 2022-05-20 Outpatient SFA SFA [id number] [place] 08:35:53 08:35:53 1121 F Brooks 2022-05-17 2022-05-17 Outpatient SFA SFA [id number] [place] 10:50:15 10:50:15 1118 F Brooks 2022-05-17 2022-05-17 Outpatient [id number] 00:00:00 00:00:00 Visit [id number] 2022-01-21 2022-01-21 Outpatient [id number] ad [id number] 00:00:00 00:00:00 Visit [id number] 2021-10-04 2021-10-04 Office MARLO Koehler 6410 1.2.840.114 [id number] [place] 10:40:00 11:36:[address] [id number] Health 9.2.7.2.686 [id number] 2021-09-20 2021-09-20 Telephone MARLO Koehler 6410 1.2.840.114 [id number] [place] 00:00:00 00:00:[address] [id number] Health 9.2.7.2.686 [id number] 3 2021-07-18 2021-07-18 Telephone Danya Kirkpatrick UTP 6410 1.2.840.1 14 [id number] [place] 00:00:00 00:00:[address] [id number] Health 9.2.7.2.686 [id number] 3 2021-04-10 2021-04-10 Telephone Danya Kirkpatrick UTP 6410 1.2.840.1 14 [id number] [place] 00:00:00 00:00:[address] [id number] Health 9.2.7.2.686 [id number] 3 2021-01-26 2021-01-26 Orders Marloselina UTP 1.2.840.114 [id number] [place] 00:00:00 00:00:00 Only Genesis PELON 350.1.13.58 H [facility] 9.2.7.2.686 [facility] [id number] 2021-01-11 2021-01-11 Telephone Renu Chinchilla UTP 6410 1.2.840 .114 [id number] [place] 00:00:00 00:00:[address] [id number] Health 9.2.7.2.686 [id number] 3 2020-12-05 2020-12-05 Telephone Danya Kirkpatrick UTP 6410 1.2.840.1 14 [id number] [place] 00:00:00 00:00:[address] 350.1.13.58 Health 9.2.7.2.686 [id number] 3 2020-11-20 2020-11-20 Telephone Danya Kirkpatrick UTP 6410 1.2.840.1 14 [id number] [place] 00:00:00 00:00:[address] 350.1.13.58 Health 9.2.7.2.686 [id number] 3 2020-11-18 2020-11-18 Telephone Yvette UTP 6410 1.2.840.114 12 [id number] [place] 00:00:00 00:00:[address] 350.1.13.58 Health 9.2.7.2.686 [id number] 3 2020-11-13 2020-11-13 Telephone Renu Chinchilla UTP 6410 1.2.840 .114 [id number] [place] 00:00:00 00:00:[address] 350.1.13.58 Health 9.2.7.2.686 [id number] 3 2020-11-10 2020-11-10 Telephone Fabiola Mendez TERRELL 1.2.840.1 14 [id number] [place] 00:00:00 00:00:00 SjNick virknawaf [facility] 350.1.13.58 Health MEDICAL 9.2.7.2.686 [place] [id number] 2020-11-10 2020-11-10 Telephone MARLO Mohan [id number] [place] 00:00:00 00:00:00 Genesis BIRD 350.1.13.58 H [facility] MEDICAL 9.2.7.2.686 [facility] [id number] 4 2020-11-10 2020-11-10 Telephone Dominic Quintero 1.2.840.11 4 [id number] [place] 00:00:00 00:00:00 Dominic Quintero 350.1.13.58 [facility] 9.2.7.2.686 [place] [id number] 2020-08-07 2020-08-07 Emergency [facility] 064 [id number] 90 [place] 00:00:00 00:00:[address] Results Test Description Test Time Test Comments Results Result Comments Source LIPID PANEL 2023-04-07 02:30:28 Test Item Value Reference Range Interpretation Comme nts CHOLESTEROL (test code = 2210) 245 MG/DL <200 H TRIGLYCERIDES (test code = 2232) 323 MG/DL <150 H HDL CHOLESTEROL (test code = 47 MG/DL >39 2219) CALC LDL CHOL (test code = 2237) 148 MG/DL <100 H NOTE: CALCULATED LDL IS BASED ON SAYDA-RICHEY METHOD WHICHINCLUDES A DJUSTABLE TRIGLYCERIDE:VL DL CHOLESTEROL RATIO.THIS FACT OR VARIES BY MEASURED TRIGLY CERIDE AND NON-HDLCHOLESTE ROL CONCENTRATIONS WITH INCREASED CALCULATED LDL SEENIN HIGHER T RIGLYCERIDE OR LOWER NON-HDL S PECIMENS. FOR MOREINFORMATION , SEE CLIENT ANNOUNCEMENT AT [email or web address] RISK RATIO LDL/HDL (test code = 3.15 RATIO <3.22 2237) COMPREHENSIVE METABOLIC [id number] 02:30:28 Test Item Value Reference Range Interpretation Comments GLUCOSE (test code = 140 MG/DL 70-99 H 2216) BUN (test code = 10 MG/DL 12-17) CREATININE (test 0.68 MG/DL 0.60-1.30 code = 2214) eGFR (2020 CKD-EPI) 111 >60 (test code = 00521) ML/MIN/1.73 CALC BUN/CREAT (test 15 RATIO 12-25 code = 2235) SODIUM (test code = 141 MEQ/L 149-768 1198) POTASSIUM (test code 4.2 MEQ/L 3.5-5.4 = 8) CHLORIDE (test code 102 MEQ/L 95-107 = 2214) CARBON DIOXIDE (test 23 MEQ/L 19-31 code = 2206) CALCIUM (test code = 9.8 MG/DL 8.5-10.5 2208) PROTEIN, TOTAL (test 8.2 G/DL 6.1-8.3 code = 2229) ALBUMIN (test code = 5.0 G/DL 3.5-5.2 2200) CALC GLOBULIN (test 3.2 G/DL 1.9-3.7 code = 2240) CALC A/G RATIO (test 1.6 RATIO 1.0-2.6 code = 2234) BILIRUBIN, TOTAL <0.2 MG/DL <=1.2 (test code = 2207) ALKALINE PHOSPHATASE 133 U/L 40-113 H (test code = 2204) AST (test code = 28 U/L 9-40 2217) ALT (test code = 31 U/L 5-40 UNLESS OTH ERWISE 2218) INDICATED, ALL TESTING PERFORM ED AT CLINICAL PATHOL [place], [facility] [address] [place] [id number] [place] [address] PATRICK DIRECTOR: Germain CRUZ GRAYSON NUMBER [id number] CAP ACCREDITATION N O. [id number] HEMOGLOBIN [id number] 02:13:48 Test Item Value Reference Range Interpretation Comments HEMOGLOBIN A1c (test 7.6 % 4.2-5.6 H AMERI CAN DIABETES code = 64452) ASSOCIATION IDELINES FOR HGB A1C: PREDIABETES/INC REASED RISK . . . . . . . 5.7 -6.4% DIAGNOSIS OF DI ABETES . . . . . . . . . >=6 .5% WITH CONFIRMATION OR APPROPRIATE SYMPTOMS NOTE: ASSAY MAY BE AFFECTED BY HEMOGLOBINOPATH IES (SICKLE CELL ANEMIA, S- C DISEASE, OTHERS) OR CHADD FICIALLY LOWERED BY DECR EASED RED CELL SURVIVAL ( HEMOLYTIC ANEMIAS, BLOOD LOSS, ETC.). CONSIDER ALTERN ATE TESTING OR LABORATORY C ONSULTATION. CBC W/AUTO DIFF WITH [id number] 11:11:23 Test Item Value Reference Range Interpretation Comments WBC (test code = 9.0 K/UL 3.5-11.0 1001) RBC (test code = 4.72 M/UL 3.80-5.40 1002) HEMOGLOBIN (test 9.4 G/DL 11.5-15.5 L code = 1003) HEMATOCRIT (test 30.5 % 34.0-45.0 L code = 1004) MCV (test code = 64.6 fL 80.0-99.0 L 1005) MCH (test code = 19.9 PG 25.0-33.0 L 1006) MCHC (test code = 30.8 G/DL 31.0-36.0 L 1007) RDW (test code = 17.2 % 11.5-15.0 H 1038) NEUTROPHILS (test 68.9 % AUTOMATED code = 1008) DIFFERENTIAL CONFIRMED WITH MANUAL SLIDE REVIEW. LYMPHOCYTES (test 16.5 % code = 1010) MONOCYTES (test code 4.5 % = 1011) EOSINOPHILS (test 8.3 % code = 1012) BASOPHILS (test code 0.8 % = 1013) IMMATURE 1.0 % GRANULOCYTES (test code = 1036) NUCLEATED RBCS (test 0.0 /100 See_Comment [Autom ated message] code = 1065) WBC'S The system [employer] generated this result transmitted ref erence range: 0.0. The reference range was not used to int erpret this result as normal/abnormal . PLATELET COUNT (test 461 K/UL 130-400 H code = 1015) ABSOLUTE NEUTROPHILS 6.22 K/UL 1.50-7.50 (test code = 1066) ABSOLUTE LYMPHOCYTES 1.49 K/UL 1.00-4.00 (test code = 1067) ABSOLUTE MONOCYTES 0.41 K/UL 0.20-1.00 (test code = 1068) ABSOLUTE EOSINOPHILS 0.75 K/UL 0.00-0.50 H (test code = 1040) ABSOLUTE BASOPHILS 0.07 K/UL 0.00-0.20 (test code = 1069) ABS IMMATURE 0.09 K/UL 0.00-0.10 GRANULOCYTES (test code = 1020) ABS NUCLEATED RBCS 0.00 K/UL 0.00-0.11 (test code = 31175) COMMENTS (test code (NOTE) SLIGHT ANISOCYTOSIS = 1016) FEW ELLIPTOCYTE S MODERATE HYPOCHROMASIA M ARKED MICROCYTOSIS SL IGHT POIKILOCYTOSIS SLIGHT POLYCHROMASIA FEW TEAR DROP CELLS PLATELETS APPEA R INCREASED CBC W/AUTO [id number] 00:00:00 Test Item Value Reference Range Interpretation Comments WBC (test code = 1001) 9.0 K/UL RBC (test code = 1002) 4.72 M/UL HEMOGLOBIN (test code = 1003) 9.4 G/DL HEMATOCRIT (test code = 1004) 30.5 % MCV (test code = 1005) 64.6 fL MCH (test code = 1006) 19.9 PG MCHC (test code = 1007) 30.8 G/DL RDW (test code = 1038) 17.2 % NEUTROPHILS (test code = 1008) 68.9 % LYMPHOCYTES (test code = 1010) 16.5 % MONOCYTES (test code = 1011) 4.5 % EOSINOPHILS (test code = 1012) 8.3 % BASOPHILS (test code = 1013) 0.8 % IMMATURE GRANULOCYTES (test 1.0 % code = 1036) NUCLEATED RBCS (test code = 0.0 /100WBC'S 1065) PLATELET COUNT (test code = 461 K/UL 1015) ABSOLUTE NEUTROPHILS (test code 6.22 K/UL = 1066) ABSOLUTE LYMPHOCYTES (test code 1.49 K/UL = 1067) ABSOLUTE MONOCYTES (test code = 0.41 K/UL 1068) ABSOLUTE EOSINOPHILS (test code 0.75 K/UL = 1040) ABSOLUTE BASOPHILS (test code = 0.07 K/UL 1069) ABS IMMATURE GRANULOCYTES (test 0.09 K/UL code = 1020) ABS NUCLEATED RBCS (test code = 0.00 K/UL 59919) COMMENTS (test code = 1016) (NOTE) CBC W/AUTO [id number] 00:00:00 Test Item Value Reference Range Interpretation Comments WBC (test code = 1001) 9.0 K/UL RBC (test code = 1002) 4.72 M/UL HEMOGLOBIN (test code = 1003) 9.4 G/DL HEMATOCRIT (test code = 1004) 30.5 % MCV (test code = 1005) 64.6 fL MCH (test code = 1006) 19.9 PG MCHC (test code = 1007) 30.8 G/DL RDW (test code = 1038) 17.2 % NEUTROPHILS (test code = 1008) 68.9 % LYMPHOCYTES (test code = 1010) 16.5 % MONOCYTES (test code = 1011) 4.5 % EOSINOPHILS (test code = 1012) 8.3 % BASOPHILS (test code = 1013) 0.8 % IMMATURE GRANULOCYTES (test 1.0 % code = 1036) NUCLEATED RBCS (test code = 0.0 /100WBC'S 1065) PLATELET COUNT (test code = 461 K/UL 1015) ABSOLUTE NEUTROPHILS (test code 6.22 K/UL = 1066) ABSOLUTE LYMPHOCYTES (test code 1.49 K/UL = 1067) ABSOLUTE MONOCYTES (test code = 0.41 K/UL 1068) ABSOLUTE EOSINOPHILS (test code 0.75 K/UL = 1040) ABSOLUTE BASOPHILS (test code = 0.07 K/UL 1069) ABS IMMATURE GRANULOCYTES (test 0.09 K/UL code = 1020) ABS NUCLEATED RBCS (test code = 0.00 K/UL 46180) COMMENTS (test code = 1016) (NOTE) CBC W/AUTO [id number] 00:00:00 Test Item Value Reference Range Interpretation Comments WBC (test code = 1001) 9.0 K/UL RBC (test code = 1002) 4.72 M/UL HEMOGLOBIN (test code = 1003) 9.4 G/DL HEMATOCRIT (test code = 1004) 30.5 % MCV (test code = 1005) 64.6 fL MCH (test code = 1006) 19.9 PG MCHC (test code = 1007) 30.8 G/DL RDW (test code = 1038) 17.2 % NEUTROPHILS (test code = 1008) 68.9 % LYMPHOCYTES (test code = 1010) 16.5 % MONOCYTES (test code = 1011) 4.5 % EOSINOPHILS (test code = 1012) 8.3 % BASOPHILS (test code = 1013) 0.8 % IMMATURE GRANULOCYTES (test 1.0 % code = 1036) NUCLEATED RBCS (test code = 0.0 /100WBC'S 1065) PLATELET COUNT (test code = 461 K/UL 1015) ABSOLUTE NEUTROPHILS (test code 6.22 K/UL = 1066) ABSOLUTE LYMPHOCYTES (test code 1.49 K/UL = 1067) ABSOLUTE MONOCYTES (test code = 0.41 K/UL 1068) ABSOLUTE EOSINOPHILS (test code 0.75 K/UL = 1040) ABSOLUTE BASOPHILS (test code = 0.07 K/UL 1069) ABS IMMATURE GRANULOCYTES (test 0.09 K/UL code = 1020) ABS NUCLEATED RBCS (test code = 0.00 K/UL 30743) COMMENTS (test code = 1016) (NOTE) CBC W/AUTO [id number] 00:00:00 Test Item Value Reference Range Interpretation Comments WBC (test code = 1001) 9.0 K/UL RBC (test code = 1002) 4.72 M/UL HEMOGLOBIN (test code = 1003) 9.4 G/DL HEMATOCRIT (test code = 1004) 30.5 % MCV (test code = 1005) 64.6 fL MCH (test code = 1006) 19.9 PG MCHC (test code = 1007) 30.8 G/DL RDW (test code = 1038) 17.2 % NEUTROPHILS (test code = 1008) 68.9 % LYMPHOCYTES (test code = 1010) 16.5 % MONOCYTES (test code = 1011) 4.5 % EOSINOPHILS (test code = 1012) 8.3 % BASOPHILS (test code = 1013) 0.8 % IMMATURE GRANULOCYTES (test 1.0 % code = 1036) NUCLEATED RBCS (test code = 0.0 /100WBC'S 1065) PLATELET COUNT (test code = 461 K/UL 1015) ABSOLUTE NEUTROPHILS (test code 6.22 K/UL = 1066) ABSOLUTE LYMPHOCYTES (test code 1.49 K/UL = 1067) ABSOLUTE MONOCYTES (test code = 0.41 K/UL 1068) ABSOLUTE EOSINOPHILS (test code 0.75 K/UL = 1040) ABSOLUTE BASOPHILS (test code = 0.07 K/UL 1069) ABS IMMATURE GRANULOCYTES (test 0.09 K/UL code = 1020) ABS NUCLEATED RBCS (test code = 0.00 K/UL 43227) COMMENTS (test code = 1016) (NOTE) CBC W/AUTO [id number] 00:00:00 Test Item Value Reference Range Interpretation Comments WBC (test code = 1001) 9.0 K/UL RBC (test code = 1002) 4.72 M/UL HEMOGLOBIN (test code = 1003) 9.4 G/DL HEMATOCRIT (test code = 1004) 30.5 % MCV (test code = 1005) 64.6 fL MCH (test code = 1006) 19.9 PG MCHC (test code = 1007) 30.8 G/DL RDW (test code = 1038) 17.2 % NEUTROPHILS (test code = 1008) 68.9 % LYMPHOCYTES (test code = 1010) 16.5 % MONOCYTES (test code = 1011) 4.5 % EOSINOPHILS (test code = 1012) 8.3 % BASOPHILS (test code = 1013) 0.8 % IMMATURE GRANULOCYTES (test 1.0 % code = 1036) NUCLEATED RBCS (test code = 0.0 /100WBC'S 1065) PLATELET COUNT (test code = 461 K/UL 1015) ABSOLUTE NEUTROPHILS (test code 6.22 K/UL = 1066) ABSOLUTE LYMPHOCYTES (test code 1.49 K/UL = 1067) ABSOLUTE MONOCYTES (test code = 0.41 K/UL 1068) ABSOLUTE EOSINOPHILS (test code 0.75 K/UL = 1040) ABSOLUTE BASOPHILS (test code = 0.07 K/UL 1069) ABS IMMATURE GRANULOCYTES (test 0.09 K/UL code = 1020) ABS NUCLEATED RBCS (test code = 0.00 K/UL 86019) COMMENTS (test code = 1016) (NOTE) TSH, THIRD [id number] 09:33:32 Test Item Value Reference Range Interpretation Comments TSH, THIRD 0.021 UIU/ML 0.400-4.100 L UNLESS OTHERWI SE GENERATION (test INDICATED, ALL TESTING code = 2821) PERFORMED [facility], [facility] [address] [place] [id number] [place] [address] DIRECTOR: FRED HARDY M.D. CLIA NUMBER [id number] CAP ACCREDITATION N O. [id number] HEMOGLOBIN [id number] 07:24:22 Test Item Value Reference Range Interpretation Comments HEMOGLOBIN A1c (test 6.8 % 4.2-5.6 H AMERIC AN DIABETES code = 61405) ASSOCIATION IDELINES FOR HGB A1C: PREDIABETES/INC REASED RISK . . . . . . . 5.7 -6.4% DIAGNOSIS OF DI ABETES . . . . . . . . . >=6 .5% WITH CONFIRMATION OR APPROPRIATE SYMPTOMS NOTE: ASSAY MAY BE AFFECTED BY HEMOGLOBINOPATH IES (SICKLE CELL ANEMIA, S- C DISEASE, OTHERS) OR CHADD FICIALLY LOWERED BY DECR EASED RED CELL SURVIVAL ( HEMOLYTIC ANEMIAS, BLOOD LOSS, ETC.). CONSIDER ALTERN ATE TESTING OR LABORATORY C ONSULTATION. LIPID [id number] 05:48:44 Test Item Value Reference Range Interpretation Comments CHOLESTEROL (test 179 MG/DL <200 code = 2210) TRIGLYCERIDES (test 315 MG/DL <150 H code = 2232) HDL CHOLESTEROL (test 46 MG/DL >39 code = 2220) CALC LDL CHOL (test 91 MG/DL <100 NOTE: C ALCULATED LDL code = 2237) IS BASED ON SAYDA-RICHEY METHOD WHICHINCLUDES ADJUSTABLE TRIGLYCERIDE:VL DL CHOLESTEROL RAT IO.THIS FACTOR VARIES B Y MEASURED TRIGLY CERIDE AND NON-HDLCHOL ESTEROL CONCENTRATIONS WITH INCREASED CALCU LATED LDL SEENIN HIGH ER TRIGLYCERIDE OR LOWER NON-HDL SPECIME NS. FOR MOREINFORMATION , SEE CLIENT ANNOUNCE MENT AT [email or web address] RISK RATIO LDL/HDL 1.98 RATIO <3.22 (test code = 2238) COMPREHENSIVE METABOLIC [id number] 05:48:44 Test Item Value Reference Range Interpretation Comments GLUCOSE (test code = 178 MG/DL 70-99 H 2216) BUN (test code = 13 MG/DL 6-20 2207) CREATININE (test 0.67 MG/DL 0.60-1.30 code = 2214) eGFR (2020 CKD-EPI) 113 >60 (test code = 16421) ML/MIN/1.73 CALC BUN/CREAT (test 19 RATIO 6-28 code = 2235) SODIUM (test code = 139 MEQ/L 230-063 0348) POTASSIUM (test code 3.9 MEQ/L 3.5-5.4 = 2227) CHLORIDE (test code 101 MEQ/L 95-107 = 2214) CARBON DIOXIDE (test 24 MEQ/L 19-31 code = 2206) CALCIUM (test code = 9.7 MG/DL 8.5-10.5 2208) PROTEIN, TOTAL (test 7.6 G/DL 6.1-8.3 code = 2229) ALBUMIN (test code = 4.5 G/DL 3.5-5.2 2200) CALC GLOBULIN (test 3.1 G/DL 1.9-3.7 code = 2240) CALC A/G RATIO (test 1.5 RATIO 1.0-2.6 code = 2234) BILIRUBIN, TOTAL <0.2 MG/DL See_Comment [Automated message] (test code = 2207) The [employer] which generated this result transmit bess reference range : <=1.2. The refe rence range was not u sed to interpret th is result as normal/abnormal . ALKALINE PHOSPHATASE 124 U/L 40-112 H (test code = 2204) AST (test code = 14 U/L 9-40 2217) ALT (test code = 18 U/L 5-40 2218) COMPREHENSIVE METABOLIC [id number] 00:00:00 Test Item Value Reference Range Interpretation Comments GLUCOSE (test code = 2217) 178 MG/DL BUN (test code = 2208) 13 MG/DL CREATININE (test code = 2214) 0.67 MG/DL eGFR (2020 CKD-EPI) (test 113 ML/MIN/1.73 code = 87060) CALC BUN/CREAT (test code = 19 RATIO 5) SODIUM (test code = 2231) 139 MEQ/L POTASSIUM (test code = 2228) 3.9 MEQ/L CHLORIDE (test code = 2215) 101 MEQ/L CARBON DIOXIDE (test code = 24 MEQ/L 2205) CALCIUM (test code = 2209) 9.7 MG/DL PROTEIN, TOTAL (test code = 7.6 G/DL 2228) ALBUMIN (test code = 2201) 4.5 G/DL CALC GLOBULIN (test code = 3.1 G/DL 2239) CALC A/G RATIO (test code = 1.5 RATIO 2233) BILIRUBIN, TOTAL (test code = <0.2 MG/DL 2206) ALKALINE PHOSPHATASE (test 124 U/L code = 2204) AST (test code = 2218) 14 U/L ALT (test code = 2219) 18 U/L [id number] 00:00:00 Test Item Value Reference Range Interpretation Comments TSH, THIRD GENERATION (test code 0.021 UIU/ML = 2821) [id number] 00:00:00 Test Item Value Reference Range Interpretation Comments TSH, THIRD GENERATION (test code 0.021 UIU/ML = 2821) HEMOGLOBIN [id number] 00:00:00 Test Item Value Reference Range Interpretation Comments HEMOGLOBIN A1c (test code = 39570) 6.8 % HEMOGLOBIN [id number] 00:00:00 Test Item Value Reference Range Interpretation Comments HEMOGLOBIN A1c (test code = 32306) 6.8 % HEMOGLOBIN [id number] 00:00:00 Test Item Value Reference Range Interpretation Comments HEMOGLOBIN A1c (test code = 94199) 6.8 % LIPID [id number] 00:00:00 Test Item Value Reference Range Interpretation Comments CHOLESTEROL (test code = 2210) 179 MG/DL TRIGLYCERIDES (test code = 2232) 315 MG/DL HDL CHOLESTEROL (test code = 2220) 46 MG/DL CALC LDL CHOL (test code = 2237) 91 MG/DL RISK RATIO LDL/HDL (test code = 1.98 RATIO 2238) LIPID [id number] 00:00:00 Test Item Value Reference Range Interpretation Comments CHOLESTEROL (test code = 2210) 179 MG/DL TRIGLYCERIDES (test code = 2232) 315 MG/DL HDL CHOLESTEROL (test code = 2220) 46 MG/DL CALC LDL CHOL (test code = 2237) 91 MG/DL RISK RATIO LDL/HDL (test code = 1.98 RATIO 2238) COMPREHENSIVE METABOLIC [id number] 00:00:00 Test Item Value Reference Range Interpretation Comments GLUCOSE (test code = 2217) 178 MG/DL BUN (test code = 2208) 13 MG/DL CREATININE (test code = 2214) 0.67 MG/DL eGFR (2020 CKD-EPI) (test 113 ML/MIN/1.73 code = 88256) CALC BUN/CREAT (test code = 19 RATIO 2235) SODIUM (test code = 2231) 139 MEQ/L POTASSIUM (test code = 2228) 3.9 MEQ/L CHLORIDE (test code = 2215) 101 MEQ/L CARBON DIOXIDE (test code = 24 MEQ/L 2205) CALCIUM (test code = 2209) 9.7 MG/DL PROTEIN, TOTAL (test code = 7.6 G/DL 2228) ALBUMIN (test code = 2201) 4.5 G/DL CALC GLOBULIN (test code = 3.1 G/DL 2239) CALC A/G RATIO (test code = 1.5 RATIO 223) BILIRUBIN, TOTAL (test code = <0.2 MG/DL 2206) ALKALINE PHOSPHATASE (test 124 U/L code = 2204) AST (test code = 2218) 14 U/L ALT (test code = 2219) 18 U/L COMPREHENSIVE METABOLIC [id number] 00:00:00 Test Item Value Reference Range Interpretation Comments GLUCOSE (test code = 2217) 178 MG/DL BUN (test code = 2208) 13 MG/DL CREATININE (test code = 2214) 0.67 MG/DL eGFR (2020 CKD-EPI) (test 113 ML/MIN/1.73 code = 60981) CALC BUN/CREAT (test code = 19 RATIO 2234) SODIUM (test code = 2231) 139 MEQ/L POTASSIUM (test code = 2228) 3.9 MEQ/L CHLORIDE (test code = 2215) 101 MEQ/L CARBON DIOXIDE (test code = 24 MEQ/L 2205) CALCIUM (test code = 2209) 9.7 MG/DL PROTEIN, TOTAL (test code = 7.6 G/DL 2228) ALBUMIN (test code = 220) 4.5 G/DL CALC GLOBULIN (test code = 3.1 G/DL 2239) CALC A/G RATIO (test code = 1.5 RATIO 2233) BILIRUBIN, TOTAL (test code = <0.2 MG/DL 2206) ALKALINE PHOSPHATASE (test 124 U/L code = 2204) AST (test code = 2218) 14 U/L ALT (test code = 2219) 18 U/L [id number] 00:00:00 Test Item Value Reference Range Interpretation Comments TSH, THIRD GENERATION (test code 0.021 UIU/ML = 2821) [id number] 00:00:00 Test Item Value Reference Range Interpretation Comments TSH, THIRD GENERATION (test code 0.021 UIU/ML = 2821) [id number] 00:00:00 Test Item Value Reference Range Interpretation Comments TSH, THIRD GENERATION (test code 0.021 UIU/ML = 2821) HEMOGLOBIN [id number] 00:00:00 Test Item Value Reference Range Interpretation Comments HEMOGLOBIN A1c (test code = 06006) 6.8 % HEMOGLOBIN [id number] 00:00:00 Test Item Value Reference Range Interpretation Comments HEMOGLOBIN A1c (test code = 56305) 6.8 % LIPID [id number] 00:00:00 Test Item Value Reference Range Interpretation Comments CHOLESTEROL (test code = 2210) 179 MG/DL TRIGLYCERIDES (test code = 2232) 315 MG/DL HDL CHOLESTEROL (test code = 2220) 46 MG/DL CALC LDL CHOL (test code = 2237) 91 MG/DL RISK RATIO LDL/HDL (test code = 1.98 RATIO 2238) MICROALBUMIN/CREATININE, RANDOM AND [id number] 00:00:00 Test Item Value Reference Range Interpretation Comments CREATININE, URINE, TEST NOT PERFORMED MG/DL CONC. (test code = 2071) ALBUMIN, URINE, TEST NOT PERFORMED MG/DL RANDOM (test code = 79122) CALC ALBUMIN/CREAT, TEST NOT PERFORMED MG/G RND (test code = 86186) MICROALBUMIN/CREATININE, RANDOM AND [id number] 00:00:00 Test Item Value Reference Range Interpretation Comments CREATININE, URINE, TEST NOT PERFORMED MG/DL CONC. (test code = 2071) ALBUMIN, URINE, TEST NOT PERFORMED MG/DL RANDOM (test code = 81784) CALC ALBUMIN/CREAT, TEST NOT PERFORMED MG/G RND (test code = 20560) MICROALBUMIN/CREATININE, RANDOM AND [id number] 00:00:00 Test Item Value Reference Range Interpretation Comments CREATININE, URINE, TEST NOT PERFORMED MG/DL CONC. (test code = 2071) ALBUMIN, URINE, TEST NOT PERFORMED MG/DL RANDOM (test code = 88308) CALC ALBUMIN/CREAT, TEST NOT PERFORMED MG/G RND (test code = 22840) LIPID [id number] 00:00:00 Test Item Value Reference Range Interpretation Comments CHOLESTEROL (test code = 2210) 238 MG/DL TRIGLYCERIDES (test code = 2232) 515 MG/DL HDL CHOLESTEROL (test code = 48 MG/DL 2220) CALC LDL CHOL (test code = 2237) (NOTE) MG/DL RISK RATIO LDL/HDL (test code = (NOTE) RATIO 2238) LIPID [id number] 00:00:00 Test Item Value Reference Range Interpretation Comments CHOLESTEROL (test code = 2210) 238 MG/DL TRIGLYCERIDES (test code = 2232) 515 MG/DL HDL CHOLESTEROL (test code = 48 MG/DL 2220) CALC LDL CHOL (test code = 2237) (NOTE) MG/DL RISK RATIO LDL/HDL (test code = (NOTE) RATIO 2238) COMPREHENSIVE METABOLIC [id number] 00:00:00 Test Item Value Reference Range Interpretation Comments GLUCOSE (test code = 2217) 243 MG/DL BUN (test code = 2208) 9 MG/DL CREATININE (test code = 2214) 0.57 MG/DL eGFR AMER. (test code 134 ML/MIN/1.73 = 07169) eGFR NON- AMER. (test 116 ML/MIN/1.73 code = 03032) CALC BUN/CREAT (test code = 16 RATIO 2235) SODIUM (test code = 2231) 137 MEQ/L POTASSIUM (test code = 2228) 4.2 MEQ/L CHLORIDE (test code = 2215) 99 MEQ/L CARBON DIOXIDE (test code = 24 MEQ/L 2205) CALCIUM (test code = 2209) 9.0 MG/DL PROTEIN, TOTAL (test code = 8.1 G/DL 2228) ALBUMIN (test code = 2201) 4.7 G/DL CALC GLOBULIN (test code = 3.4 G/DL 2240) CALC A/G RATIO (test code = 1.4 RATIO 2234) BILIRUBIN, TOTAL (test code = 0.3 MG/DL 2206) ALKALINE PHOSPHATASE (test 131 U/L code = 2204) AST (test code = 2218) 13 U/L ALT (test code = 2219) 14 U/L COMPREHENSIVE METABOLIC [id number] 00:00:00 Test Item Value Reference Range Interpretation Comments GLUCOSE (test code = 2217) 243 MG/DL BUN (test code = 2208) 9 MG/DL CREATININE (test code = 2214) 0.57 MG/DL eGFR AMER. (test code 134 ML/MIN/1.73 = 01960) eGFR NON- AMER. (test 116 ML/MIN/1.73 code = 11436) CALC BUN/CREAT (test code = 16 RATIO 2235) SODIUM (test code = 2231) 137 MEQ/L POTASSIUM (test code = 2228) 4.2 MEQ/L CHLORIDE (test code = 2215) 99 MEQ/L CARBON DIOXIDE (test code = 24 MEQ/L 220) CALCIUM (test code = 2209) 9.0 MG/DL PROTEIN, TOTAL (test code = 8.1 G/DL 2228) ALBUMIN (test code = 2201) 4.7 G/DL CALC GLOBULIN (test code = 3.4 G/DL 2240) CALC A/G RATIO (test code = 1.4 RATIO 2234) BILIRUBIN, TOTAL (test code = 0.3 MG/DL 2206) ALKALINE PHOSPHATASE (test 131 U/L code = 2204) AST (test code = 2218) 13 U/L ALT (test code = 2219) 14 U/L LIPID [id number] 00:00:00 Test Item Value Reference Range Interpretation Comments CHOLESTEROL (test code = 2210) 238 MG/DL TRIGLYCERIDES (test code = 2232) 515 MG/DL HDL CHOLESTEROL (test code = 48 MG/DL 2220) CALC LDL CHOL (test code = 2237) (NOTE) MG/DL RISK RATIO LDL/HDL (test code = (NOTE) RATIO 2238) COMPREHENSIVE METABOLIC [id number] 00:00:00 Test Item Value Reference Range Interpretation Comments GLUCOSE (test code = 2217) 243 MG/DL BUN (test code = 2208) 9 MG/DL CREATININE (test code = 2214) 0.57 MG/DL eGFR AMER. (test code 134 ML/MIN/1.73 = 04857) eGFR NON- AMER. (test 116 ML/MIN/1.73 code = 98231) CALC BUN/CREAT (test code = 16 RATIO 2235) SODIUM (test code = 2231) 137 MEQ/L POTASSIUM (test code = 2228) 4.2 MEQ/L CHLORIDE (test code = 2215) 99 MEQ/L CARBON DIOXIDE (test code = 24 MEQ/L 2205) CALCIUM (test code = 2209) 9.0 MG/DL PROTEIN, TOTAL (test code = 8.1 G/DL 2228) ALBUMIN (test code = 2201) 4.7 G/DL CALC GLOBULIN (test code = 3.4 G/DL 2240) CALC A/G RATIO (test code = 1.4 RATIO 2233) BILIRUBIN, TOTAL (test code = 0.3 MG/DL 2206) ALKALINE PHOSPHATASE (test 131 U/L code = 2204) AST (test code = 2218) 13 U/L ALT (test code = 2219) 14 U/L CBC W/AUTO [id number] 00:00:00 Test Item Value Reference Range Interpretation Comments WBC (test code = 1001) 9.0 K/UL RBC (test code = 1002) 4.80 M/UL HEMOGLOBIN (test code = 1003) 8.1 G/DL HEMATOCRIT (test code = 1004) 28.2 % MCV (test code = 1005) 58.8 fL MCH (test code = 1006) 16.9 PG MCHC (test code = 1007) 28.7 G/DL RDW (test code = 1038) 20.6 % NEUTROPHILS (test code = 1008) 73.3 % LYMPHOCYTES (test code = 1010) 16.7 % MONOCYTES (test code = 1011) 4.6 % EOSINOPHILS (test code = 1012) 3.4 % BASOPHILS (test code = 1013) 0.9 % IMMATURE GRANULOCYTES (test 1.1 % code = 1036) NUCLEATED RBCS (test code = 0.0 /100WBC'S 1065) PLATELET COUNT (test code = 607 K/UL 1015) ABSOLUTE NEUTROPHILS (test code 6.59 K/UL = 1066) ABSOLUTE LYMPHOCYTES (test code 1.50 K/UL = 1067) ABSOLUTE MONOCYTES (test code = 0.41 K/UL 1068) ABSOLUTE EOSINOPHILS (test code 0.31 K/UL = 1040) ABSOLUTE BASOPHILS (test code = 0.08 K/UL 1069) ABS IMMATURE GRANULOCYTES (test 0.10 K/UL code = 1020) ABS NUCLEATED RBCS (test code = 0.00 K/UL 21836) COMMENTS (test code = 1016) (NOTE) CBC W/AUTO [id number] 00:00:00 Test Item Value Reference Range Interpretation Comments WBC (test code = 1001) 9.0 K/UL RBC (test code = 1002) 4.80 M/UL HEMOGLOBIN (test code = 1003) 8.1 G/DL HEMATOCRIT (test code = 1004) 28.2 % MCV (test code = 1005) 58.8 fL MCH (test code = 1006) 16.9 PG MCHC (test code = 1007) 28.7 G/DL RDW (test code = 1038) 20.6 % NEUTROPHILS (test code = 1008) 73.3 % LYMPHOCYTES (test code = 1010) 16.7 % MONOCYTES (test code = 1011) 4.6 % EOSINOPHILS (test code = 1012) 3.4 % BASOPHILS (test code = 1013) 0.9 % IMMATURE GRANULOCYTES (test 1.1 % code = 1036) NUCLEATED RBCS (test code = 0.0 /100WBC'S 1065) PLATELET COUNT (test code = 607 K/UL 1015) ABSOLUTE NEUTROPHILS (test code 6.59 K/UL = 1066) ABSOLUTE LYMPHOCYTES (test code 1.50 K/UL = 1067) ABSOLUTE MONOCYTES (test code = 0.41 K/UL 1068) ABSOLUTE EOSINOPHILS (test code 0.31 K/UL = 1040) ABSOLUTE BASOPHILS (test code = 0.08 K/UL 1069) ABS IMMATURE GRANULOCYTES (test 0.10 K/UL code = 1020) ABS NUCLEATED RBCS (test code = 0.00 K/UL 38102) COMMENTS (test code = 1016) (NOTE) CBC W/AUTO [id number] 00:00:00 Test Item Value Reference Range Interpretation Comments WBC (test code = 1001) 9.0 K/UL RBC (test code = 1002) 4.80 M/UL HEMOGLOBIN (test code = 1003) 8.1 G/DL HEMATOCRIT (test code = 1004) 28.2 % MCV (test code = 1005) 58.8 fL MCH (test code = 1006) 16.9 PG MCHC (test code = 1007) 28.7 G/DL RDW (test code = 1038) 20.6 % NEUTROPHILS (test code = 1008) 73.3 % LYMPHOCYTES (test code = 1010) 16.7 % MONOCYTES (test code = 1011) 4.6 % EOSINOPHILS (test code = 1012) 3.4 % BASOPHILS (test code = 1013) 0.9 % IMMATURE GRANULOCYTES (test 1.1 % code = 1036) NUCLEATED RBCS (test code = 0.0 /100WBC'S 1065) PLATELET COUNT (test code = 607 K/UL 1015) ABSOLUTE NEUTROPHILS (test code 6.59 K/UL = 1066) ABSOLUTE LYMPHOCYTES (test code 1.50 K/UL = 1067) ABSOLUTE MONOCYTES (test code = 0.41 K/UL 1068) ABSOLUTE EOSINOPHILS (test code 0.31 K/UL = 1040) ABSOLUTE BASOPHILS (test code = 0.08 K/UL 1069) ABS IMMATURE GRANULOCYTES (test 0.10 K/UL code = 1020) ABS NUCLEATED RBCS (test code = 0.00 K/UL 75246) COMMENTS (test code = 1016) (NOTE) HEMOGLOBIN [id number] 00:00:00 Test Item Value Reference Range Interpretation Comments HEMOGLOBIN A1c (test code = 03700) 9.1 % HEMOGLOBIN [id number] 00:00:00 Test Item Value Reference Range Interpretation Comments HEMOGLOBIN A1c (test code = 72829) 9.1 % HEMOGLOBIN [id number] 00:00:00 Test Item Value Reference Range Interpretation Comments HEMOGLOBIN A1c (test code = 52700) 9.1 % CBC W/AUTO [id number] 00:00:00 Test Item Value Reference Range Interpretation Comments WBC (test code = 1001) 9.0 K/UL RBC (test code = 1002) 4.80 M/UL HEMOGLOBIN (test code = 1003) 8.1 G/DL HEMATOCRIT (test code = 1004) 28.2 % MCV (test code = 1005) 58.8 fL MCH (test code = 1006) 16.9 PG MCHC (test code = 1007) 28.7 G/DL RDW (test code = 1038) 20.6 % NEUTROPHILS (test code = 1008) 73.3 % LYMPHOCYTES (test code = 1010) 16.7 % MONOCYTES (test code = 1011) 4.6 % EOSINOPHILS (test code = 1012) 3.4 % BASOPHILS (test code = 1013) 0.9 % IMMATURE GRANULOCYTES (test 1.1 % code = 1036) NUCLEATED RBCS (test code = 0.0 /100WBC'S 1065) PLATELET COUNT (test code = 607 K/UL 1015) ABSOLUTE NEUTROPHILS (test code 6.59 K/UL = 1066) ABSOLUTE LYMPHOCYTES (test code 1.50 K/UL = 1067) ABSOLUTE MONOCYTES (test code = 0.41 K/UL 1068) ABSOLUTE EOSINOPHILS (test code 0.31 K/UL = 1040) ABSOLUTE BASOPHILS (test code = 0.08 K/UL 1069) ABS IMMATURE GRANULOCYTES (test 0.10 K/UL code = 1020) ABS NUCLEATED RBCS (test code = 0.00 K/UL 15264) COMMENTS (test code = 1016) (NOTE) CBC W/AUTO [id number] 00:00:00 Test Item Value Reference Range Interpretation Comments WBC (test code = 1001) 9.0 K/UL RBC (test code = 1002) 4.80 M/UL HEMOGLOBIN (test code = 1003) 8.1 G/DL HEMATOCRIT (test code = 1004) 28.2 % MCV (test code = 1005) 58.8 fL MCH (test code = 1006) 16.9 PG MCHC (test code = 1007) 28.7 G/DL RDW (test code = 1038) 20.6 % NEUTROPHILS (test code = 1008) 73.3 % LYMPHOCYTES (test code = 1010) 16.7 % MONOCYTES (test code = 1011) 4.6 % EOSINOPHILS (test code = 1012) 3.4 % BASOPHILS (test code = 1013) 0.9 % IMMATURE GRANULOCYTES (test 1.1 % code = 1036) NUCLEATED RBCS (test code = 0.0 /100WBC'S 1065) PLATELET COUNT (test code = 607 K/UL 1015) ABSOLUTE NEUTROPHILS (test code 6.59 K/UL = 1066) ABSOLUTE LYMPHOCYTES (test code 1.50 K/UL = 1067) ABSOLUTE MONOCYTES (test code = 0.41 K/UL 1068) ABSOLUTE EOSINOPHILS (test code 0.31 K/UL = 1040) ABSOLUTE BASOPHILS (test code = 0.08 K/UL 1069) ABS IMMATURE GRANULOCYTES (test 0.10 K/UL code = 1020) ABS NUCLEATED RBCS (test code = 0.00 K/UL 23516) COMMENTS (test code = 1016) (NOTE) HEMOGLOBIN [id number] 00:00:00 Test Item Value Reference Range Interpretation Comments HEMOGLOBIN A1c (test code = 04431) 9.1 % HEMOGLOBIN [id number] 00:00:00 Test Item Value Reference Range Interpretation Comments HEMOGLOBIN A1c (test code = 77954) 9.1 % SARS-CoV-2 (COVID-19) by RT-PCR (HIGH RISK)2020-06-28 00:00:00 Test Item Value Reference Range Interpretation Comments SARS-CoV-2 INTERPRETATION (test POSITIVE code = 74863) SOURCE (test code = 85166) NOT SPECIFIED SARS-CoV-2 (COVID-19) by RT-PCR (HIGH RISK)2020-06-28 00:00:00 Test Item Value Reference Range Interpretation Comments SARS-CoV-2 INTERPRETATION (test POSITIVE code = 69859) SOURCE (test code = 93067) NOT SPECIFIED SARS-CoV-2 (COVID-19) by RT-PCR (HIGH RISK)2020-06-28 00:00:00 Test Item Value Reference Range Interpretation Comments SARS-CoV-2 INTERPRETATION (test POSITIVE code = 95868) SOURCE (test code = 59524) NOT SPECIFIED CBC W/AUTO [id number] 00:00:00 Test Item Value Reference Range Interpretation Comments WBC (test code = 1001) 6.3 K/UL RBC (test code = 1002) 4.96 M/UL HEMOGLOBIN (test code = 1003) 8.5 G/DL HEMATOCRIT (test code = 1004) 29.6 % MCV (test code = 1005) 59.7 fL MCH (test code = 1006) 17.1 PG MCHC (test code = 1007) 28.7 G/DL RDW (test code = 1038) 21.3 % NEUTROPHILS (test code = 1008) 75.4 % LYMPHOCYTES (test code = 1010) 12.5 % MONOCYTES (test code = 1011) 8.3 % EOSINOPHILS (test code = 1012) 3.2 % BASOPHILS (test code = 1013) 0.6 % PLATELET COUNT (test code = 1015) 622 K/UL COMMENTS (test code = 1016) (NOTE) CBC W/AUTO [id number] 00:00:00 Test Item Value Reference Range Interpretation Comments WBC (test code = 1001) 6.3 K/UL RBC (test code = 1002) 4.96 M/UL HEMOGLOBIN (test code = 1003) 8.5 G/DL HEMATOCRIT (test code = 1004) 29.6 % MCV (test code = 1005) 59.7 fL MCH (test code = 1006) 17.1 PG MCHC (test code = 1007) 28.7 G/DL RDW (test code = 1038) 21.3 % NEUTROPHILS (test code = 1008) 75.4 % LYMPHOCYTES (test code = 1010) 12.5 % MONOCYTES (test code = 1011) 8.3 % EOSINOPHILS (test code = 1012) 3.2 % BASOPHILS (test code = 1013) 0.6 % PLATELET COUNT (test code = 1015) 622 K/UL COMMENTS (test code = 1016) (NOTE) CBC W/AUTO [id number] 00:00:00 Test Item Value Reference Range Interpretation Comments WBC (test code = 1001) 6.3 K/UL RBC (test code = 1002) 4.96 M/UL HEMOGLOBIN (test code = 1003) 8.5 G/DL HEMATOCRIT (test code = 1004) 29.6 % MCV (test code = 1005) 59.7 fL MCH (test code = 1006) 17.1 PG MCHC (test code = 1007) 28.7 G/DL RDW (test code = 1038) 21.3 % NEUTROPHILS (test code = 1008) 75.4 % LYMPHOCYTES (test code = 1010) 12.5 % MONOCYTES (test code = 1011) 8.3 % EOSINOPHILS (test code = 1012) 3.2 % BASOPHILS (test code = 1013) 0.6 % PLATELET COUNT (test code = 1015) 622 K/UL COMMENTS (test code = 1016) (NOTE) HEMOGLOBIN [id number] 00:00:00 Test Item Value Reference Range Interpretation Comments HEMOGLOBIN A1c (test code = 92857) 8.8 % HEMOGLOBIN [id number] 00:00:00 Test Item Value Reference Range Interpretation Comments HEMOGLOBIN A1c (test code = 58261) 8.8 % HEMOGLOBIN [id number] 00:00:00 Test Item Value Reference Range Interpretation Comments HEMOGLOBIN A1c (test code = 20133) 8.8 % CBC W/AUTO [id number] 00:00:00 Test Item Value Reference Range Interpretation Comments WBC (test code = 1001) 6.3 K/UL RBC (test code = 1002) 4.96 M/UL HEMOGLOBIN (test code = 1003) 8.5 G/DL HEMATOCRIT (test code = 1004) 29.6 % MCV (test code = 1005) 59.7 fL MCH (test code = 1006) 17.1 PG MCHC (test code = 1007) 28.7 G/DL RDW (test code = 1038) 21.3 % NEUTROPHILS (test code = 1008) 75.4 % LYMPHOCYTES (test code = 1010) 12.5 % MONOCYTES (test code = 1011) 8.3 % EOSINOPHILS (test code = 1012) 3.2 % BASOPHILS (test code = 1013) 0.6 % PLATELET COUNT (test code = 1015) 622 K/UL COMMENTS (test code = 1016) (NOTE) CBC W/AUTO [id number] 00:00:00 Test Item Value Reference Range Interpretation Comments WBC (test code = 1001) 6.3 K/UL RBC (test code = 1002) 4.96 M/UL HEMOGLOBIN (test code = 1003) 8.5 G/DL HEMATOCRIT (test code = 1004) 29.6 % MCV (test code = 1005) 59.7 fL MCH (test code = 1006) 17.1 PG MCHC (test code = 1007) 28.7 G/DL RDW (test code = 1038) 21.3 % NEUTROPHILS (test code = 1008) 75.4 % LYMPHOCYTES (test code = 1010) 12.5 % MONOCYTES (test code = 1011) 8.3 % EOSINOPHILS (test code = 1012) 3.2 % BASOPHILS (test code = 1013) 0.6 % PLATELET COUNT (test code = 1015) 622 K/UL COMMENTS (test code = 1016) (NOTE) HEMOGLOBIN [id number] 00:00:00 Test Item Value Reference Range Interpretation Comments HEMOGLOBIN A1c (test code = 83670) 8.8 % HEMOGLOBIN [id number] 00:00:00 Test Item Value Reference Range Interpretation Comments HEMOGLOBIN A1c (test code = 33365) 8.8 % CBC W/AUTO [id number] 00:00:00 Test Item Value Reference Range Interpretation Comments WBC (test code = 1001) 11.0 K/UL RBC (test code = 1002) 5.26 M/UL HEMOGLOBIN (test code = 1003) 8.7 G/DL HEMATOCRIT (test code = 1004) 30.4 % MCV (test code = 1005) 57.8 fL MCH (test code = 1006) 16.5 PG MCHC (test code = 1007) 28.6 G/DL RDW (test code = 1038) 19.5 % NEUTROPHILS (test code = 1008) 77.2 % LYMPHOCYTES (test code = 1010) 14.1 % MONOCYTES (test code = 1011) 5.2 % EOSINOPHILS (test code = 1012) 2.8 % BASOPHILS (test code = 1013) 0.7 % PLATELET COUNT (test code = 1015) 620 K/UL COMMENTS (test code = 1016) (NOTE) CBC W/AUTO [id number] 00:00:00 Test Item Value Reference Range Interpretation Comments WBC (test code = 1001) 11.0 K/UL RBC (test code = 1002) 5.26 M/UL HEMOGLOBIN (test code = 1003) 8.7 G/DL HEMATOCRIT (test code = 1004) 30.4 % MCV (test code = 1005) 57.8 fL MCH (test code = 1006) 16.5 PG MCHC (test code = 1007) 28.6 G/DL RDW (test code = 1038) 19.5 % NEUTROPHILS (test code = 1008) 77.2 % LYMPHOCYTES (test code = 1010) 14.1 % MONOCYTES (test code = 1011) 5.2 % EOSINOPHILS (test code = 1012) 2.8 % BASOPHILS (test code = 1013) 0.7 % PLATELET COUNT (test code = 1015) 620 K/UL COMMENTS (test code = 1016) (NOTE) CBC W/AUTO [id number] 00:00:00 Test Item Value Reference Range Interpretation Comments WBC (test code = 1001) 11.0 K/UL RBC (test code = 1002) 5.26 M/UL HEMOGLOBIN (test code = 1003) 8.7 G/DL HEMATOCRIT (test code = 1004) 30.4 % MCV (test code = 1005) 57.8 fL MCH (test code = 1006) 16.5 PG MCHC (test code = 1007) 28.6 G/DL RDW (test code = 1038) 19.5 % NEUTROPHILS (test code = 1008) 77.2 % LYMPHOCYTES (test code = 1010) 14.1 % MONOCYTES (test code = 1011) 5.2 % EOSINOPHILS (test code = 1012) 2.8 % BASOPHILS (test code = 1013) 0.7 % PLATELET COUNT (test code = 1015) 620 K/UL COMMENTS (test code = 1016) (NOTE) LIPID [id number] 00:00:00 Test Item Value Reference Range Interpretation Comments CHOLESTEROL (test code = 2210) 199 MG/DL TRIGLYCERIDES (test code = 2232) 248 MG/DL HDL CHOLESTEROL (test code = 2220) 61 MG/DL CALC LDL CHOL (test code = 2237) 103 MG/DL RISK RATIO LDL/HDL (test code = 1.69 RATIO 2238) LIPID [id number] 00:00:00 Test Item Value Reference Range Interpretation Comments CHOLESTEROL (test code = 2210) 199 MG/DL TRIGLYCERIDES (test code = 2232) 248 MG/DL HDL CHOLESTEROL (test code = 2220) 61 MG/DL CALC LDL CHOL (test code = 2237) 103 MG/DL RISK RATIO LDL/HDL (test code = 1.69 RATIO 2238) CBC W/AUTO [id number] 00:00:00 Test Item Value Reference Range Interpretation Comments WBC (test code = 1001) 11.0 K/UL RBC (test code = 1002) 5.26 M/UL HEMOGLOBIN (test code = 1003) 8.7 G/DL HEMATOCRIT (test code = 1004) 30.4 % MCV (test code = 1005) 57.8 fL MCH (test code = 1006) 16.5 PG MCHC (test code = 1007) 28.6 G/DL RDW (test code = 1038) 19.5 % NEUTROPHILS (test code = 1008) 77.2 % LYMPHOCYTES (test code = 1010) 14.1 % MONOCYTES (test code = 1011) 5.2 % EOSINOPHILS (test code = 1012) 2.8 % BASOPHILS (test code = 1013) 0.7 % PLATELET COUNT (test code = 1015) 620 K/UL COMMENTS (test code = 1016) (NOTE) CBC W/AUTO [id number] 00:00:00 Test Item Value Reference Range Interpretation Comments WBC (test code = 1001) 11.0 K/UL RBC (test code = 1002) 5.26 M/UL HEMOGLOBIN (test code = 1003) 8.7 G/DL HEMATOCRIT (test code = 1004) 30.4 % MCV (test code = 1005) 57.8 fL MCH (test code = 1006) 16.5 PG MCHC (test code = 1007) 28.6 G/DL RDW (test code = 1038) 19.5 % NEUTROPHILS (test code = 1008) 77.2 % LYMPHOCYTES (test code = 1010) 14.1 % MONOCYTES (test code = 1011) 5.2 % EOSINOPHILS (test code = 1012) 2.8 % BASOPHILS (test code = 1013) 0.7 % PLATELET COUNT (test code = 1015) 620 K/UL COMMENTS (test code = 1016) (NOTE) LIPID [id number] 00:00:00 Test Item Value Reference Range Interpretation Comments CHOLESTEROL (test code = 2210) 199 MG/DL TRIGLYCERIDES (test code = 2232) 248 MG/DL HDL CHOLESTEROL (test code = 2220) 61 MG/DL CALC LDL CHOL (test code = 2237) 103 MG/DL RISK RATIO LDL/HDL (test code = 1.69 RATIO 2238) THYROID II PROFILE (T3U, T4, T7, TSH)[id number] 00:00:00 Test Item Value Reference Range Interpretation Comments T-UPTAKE (test code = 2817) 27.2 % THYROX. BIND. CAPAC. (test code 1.2 = 67141) T4 (THYROXINE) (test code = 8.3 UG/DL 2819) CORRECTED T4 (FTI) (test code = 6.9 UG/DL 2820) TSH, THIRD GENERATION (test code 1.940 UIU/ML = 2821) CBC W/AUTO [id number] 00:00:00 Test Item Value Reference Range Interpretation Comments WBC (test code = 1001) 9.4 K/UL RBC (test code = 1002) 5.61 M/UL HEMOGLOBIN (test code = 1003) 9.5 G/DL HEMATOCRIT (test code = 1004) 33.4 % MCV (test code = 1005) 59.5 fL MCH (test code = 1006) 16.9 PG MCHC (test code = 1007) 28.4 G/DL RDW (test code = 1038) 19.3 % NEUTROPHILS (test code = 1008) 73.5 % LYMPHOCYTES (test code = 1010) 19.9 % MONOCYTES (test code = 1011) 3.4 % EOSINOPHILS (test code = 1012) 2.6 % BASOPHILS (test code = 1013) 0.6 % PLATELET COUNT (test code = 1015) 659 K/UL COMMENTS (test code = 1016) (NOTE) CBC W/AUTO [id number] 00:00:00 Test Item Value Reference Range Interpretation Comments WBC (test code = 1001) 9.4 K/UL RBC (test code = 1002) 5.61 M/UL HEMOGLOBIN (test code = 1003) 9.5 G/DL HEMATOCRIT (test code = 1004) 33.4 % MCV (test code = 1005) 59.5 fL MCH (test code = 1006) 16.9 PG MCHC (test code = 1007) 28.4 G/DL RDW (test code = 1038) 19.3 % NEUTROPHILS (test code = 1008) 73.5 % LYMPHOCYTES (test code = 1010) 19.9 % MONOCYTES (test code = 1011) 3.4 % EOSINOPHILS (test code = 1012) 2.6 % BASOPHILS (test code = 1013) 0.6 % PLATELET COUNT (test code = 1015) 659 K/UL COMMENTS (test code = 1016) (NOTE) CBC W/AUTO [id number] 00:00:00 Test Item Value Reference Range Interpretation Comments WBC (test code = 1001) 9.4 K/UL RBC (test code = 1002) 5.61 M/UL HEMOGLOBIN (test code = 1003) 9.5 G/DL HEMATOCRIT (test code = 1004) 33.4 % MCV (test code = 1005) 59.5 fL MCH (test code = 1006) 16.9 PG MCHC (test code = 1007) 28.4 G/DL RDW (test code = 1038) 19.3 % NEUTROPHILS (test code = 1008) 73.5 % LYMPHOCYTES (test code = 1010) 19.9 % MONOCYTES (test code = 1011) 3.4 % EOSINOPHILS (test code = 1012) 2.6 % BASOPHILS (test code = 1013) 0.6 % PLATELET COUNT (test code = 1015) 659 K/UL COMMENTS (test code = 1016) (NOTE) HEMOGLOBIN [id number] 00:00:00 Test Item Value Reference Range Interpretation Comments HEMOGLOBIN A1c (test code = 62402) 11.7 % HEMOGLOBIN [id number] 00:00:00 Test Item Value Reference Range Interpretation Comments HEMOGLOBIN A1c (test code = 71875) 11.7 % HEMOGLOBIN [id number] 00:00:00 Test Item Value Reference Range Interpretation Comments HEMOGLOBIN A1c (test code = 50441) 11.7 % LIPID [id number] 00:00:00 Test Item Value Reference Range Interpretation Comments CHOLESTEROL (test code = 2210) 248 MG/DL TRIGLYCERIDES (test code = 2232) 612 MG/DL HDL CHOLESTEROL (test code = 54 MG/DL 2220) CALC LDL CHOL (test code = 2237) (NOTE) MG/DL RISK RATIO LDL/HDL (test code = (NOTE) RATIO 2238) LIPID [id number] 00:00:00 Test Item Value Reference Range Interpretation Comments CHOLESTEROL (test code = 2210) 248 MG/DL TRIGLYCERIDES (test code = 2232) 612 MG/DL HDL CHOLESTEROL (test code = 54 MG/DL 2220) CALC LDL CHOL (test code = 2237) (NOTE) MG/DL RISK RATIO LDL/HDL (test code = (NOTE) RATIO 2238) COMPREHENSIVE METABOLIC [id number] 00:00:00 Test Item Value Reference Range Interpretation Comments GLUCOSE (test code = 2217) 416 MG/DL BUN (test code = 2208) 6 MG/DL CREATININE (test code = 2214) 0.60 MG/DL eGFR AMER. (test code 133 ML/MIN/1.73 = 07286) eGFR NON- AMER. (test 115 ML/MIN/1.73 code = 62489) CALC BUN/CREAT (test code = 10 RATIO 2235) SODIUM (test code = 2231) 133 MEQ/L POTASSIUM (test code = 2228) 4.7 MEQ/L CHLORIDE (test code = 2215) 95 MEQ/L CARBON DIOXIDE (test code = 23 MEQ/L 2206) CALCIUM (test code = 2209) 10.0 MG/DL PROTEIN, TOTAL (test code = 8.3 G/DL 2228) ALBUMIN (test code = 2201) 4.7 G/DL CALC GLOBULIN (test code = 3.6 G/DL 2240) CALC A/G RATIO (test code = 1.3 RATIO 4) BILIRUBIN, TOTAL (test code = 0.2 MG/DL 2206) ALKALINE PHOSPHATASE (test 157 U/L code = 2204) AST (test code = 2218) 18 U/L ALT (test code = 2219) 21 U/L COMPREHENSIVE METABOLIC [id number] 00:00:00 Test Item Value Reference Range Interpretation Comments GLUCOSE (test code = 2217) 416 MG/DL BUN (test code = 2208) 6 MG/DL CREATININE (test code = 2214) 0.60 MG/DL eGFR AMER. (test code 133 ML/MIN/1.73 = 97016) eGFR NON- AMER. (test 115 ML/MIN/1.73 code = 57272) CALC BUN/CREAT (test code = 10 RATIO 2235) SODIUM (test code = 2231) 133 MEQ/L POTASSIUM (test code = 2228) 4.7 MEQ/L CHLORIDE (test code = 2215) 95 MEQ/L CARBON DIOXIDE (test code = 23 MEQ/L 2206) CALCIUM (test code = 2209) 10.0 MG/DL PROTEIN, TOTAL (test code = 8.3 G/DL 2228) ALBUMIN (test code = 2201) 4.7 G/DL CALC GLOBULIN (test code = 3.6 G/DL 2240) CALC A/G RATIO (test code = 1.3 RATIO 2234) BILIRUBIN, TOTAL (test code = 0.2 MG/DL 2206) ALKALINE PHOSPHATASE (test 157 U/L code = 2204) AST (test code = 2218) 18 U/L ALT (test code = 2219) 21 U/L THYROID II PROFILE (T3U, T4, T7, TSH)[id number] 00:00:00 Test Item Value Reference Range Interpretation Comments T-UPTAKE (test code = 2817) 27.2 % THYROX. BIND. CAPAC. (test code 1.2 = 57106) T4 (THYROXINE) (test code = 8.3 UG/DL 2819) CORRECTED T4 (FTI) (test code = 6.9 UG/DL 2820) TSH, THIRD GENERATION (test code 1.940 UIU/ML = 2821) THYROID II PROFILE (T3U, T4, T7, TSH)[id number] 00:00:00 Test Item Value Reference Range Interpretation Comments T-UPTAKE (test code = 7) 27.2 % THYROX. BIND. CAPAC. (test code 1.2 = 09831) T4 (THYROXINE) (test code = 8.3 UG/DL 2819) CORRECTED T4 (FTI) (test code = 6.9 UG/DL 2820) TSH, THIRD GENERATION (test code 1.940 UIU/ML = 2821) CBC W/AUTO [id number] 00:00:00 Test Item Value Reference Range Interpretation Comments WBC (test code = 1001) 9.4 K/UL RBC (test code = 1002) 5.61 M/UL HEMOGLOBIN (test code = 1003) 9.5 G/DL HEMATOCRIT (test code = 1004) 33.4 % MCV (test code = 1005) 59.5 fL MCH (test code = 1006) 16.9 PG MCHC (test code = 1007) 28.4 G/DL RDW (test code = 1038) 19.3 % NEUTROPHILS (test code = 1008) 73.5 % LYMPHOCYTES (test code = 1010) 19.9 % MONOCYTES (test code = 1011) 3.4 % EOSINOPHILS (test code = 1012) 2.6 % BASOPHILS (test code = 1013) 0.6 % PLATELET COUNT (test code = 1015) 659 K/UL COMMENTS (test code = 1016) (NOTE) CBC W/AUTO [id number] 00:00:00 Test Item Value Reference Range Interpretation Comments WBC (test code = 1001) 9.4 K/UL RBC (test code = 1002) 5.61 M/UL HEMOGLOBIN (test code = 1003) 9.5 G/DL HEMATOCRIT (test code = 1004) 33.4 % MCV (test code = 1005) 59.5 fL MCH (test code = 1006) 16.9 PG MCHC (test code = 1007) 28.4 G/DL RDW (test code = 1038) 19.3 % NEUTROPHILS (test code = 1008) 73.5 % LYMPHOCYTES (test code = 1010) 19.9 % MONOCYTES (test code = 1011) 3.4 % EOSINOPHILS (test code = 1012) 2.6 % BASOPHILS (test code = 1013) 0.6 % PLATELET COUNT (test code = 1015) 659 K/UL COMMENTS (test code = 1016) (NOTE) HEMOGLOBIN [id number] 00:00:00 Test Item Value Reference Range Interpretation Comments HEMOGLOBIN A1c (test code = 87194) 11.7 % HEMOGLOBIN [id number] 00:00:00 Test Item Value Reference Range Interpretation Comments HEMOGLOBIN A1c (test code = 73868) 11.7 % LIPID [id number] 00:00:00 Test Item Value Reference Range Interpretation Comments CHOLESTEROL (test code = 2210) 248 MG/DL TRIGLYCERIDES (test code = 2232) 612 MG/DL HDL CHOLESTEROL (test code = 54 MG/DL 2220) CALC LDL CHOL (test code = 2237) (NOTE) MG/DL RISK RATIO LDL/HDL (test code = (NOTE) RATIO 2238) COMPREHENSIVE METABOLIC [id number] 00:00:00 Test Item Value Reference Range Interpretation Comments GLUCOSE (test code = 2217) 416 MG/DL BUN (test code = 2208) 6 MG/DL CREATININE (test code = 2214) 0.60 MG/DL eGFR AMER. (test code 133 ML/MIN/1.73 = 86854) eGFR NON- AMER. (test 115 ML/MIN/1.73 code = 03934) CALC BUN/CREAT (test code = 10 RATIO 2235) SODIUM (test code = 2231) 133 MEQ/L POTASSIUM (test code = 2228) 4.7 MEQ/L CHLORIDE (test code = 2215) 95 MEQ/L CARBON DIOXIDE (test code = 23 MEQ/L 2205) CALCIUM (test code = 2209) 10.0 MG/DL PROTEIN, TOTAL (test code = 8.3 G/DL 2228) ALBUMIN (test code = 2201) 4.7 G/DL CALC GLOBULIN (test code = 3.6 G/DL 2239) CALC A/G RATIO (test code = 1.3 RATIO 2233) BILIRUBIN, TOTAL (test code = 0.2 MG/DL 2206) ALKALINE PHOSPHATASE (test 157 U/L code = 2204) AST (test code = 2218) 18 U/L ALT (test code = 2219) 21 U/L RETICULOCYTE [id number] 00:00:00 Test Item Value Reference Range Interpretation Comments RETICULOCYTE COUNT (test code = 1018) 2.4 % RETICULOCYTE [id number] 00:00:00 Test Item Value Reference Range Interpretation Comments RETICULOCYTE COUNT (test code = 1018) 2.4 % ACUTE HEPATITIS [id number] 00:00:00 Test Item Value Reference Range Interpretation Comments HEPATITIS A IgM (test code = NON-REACTIVE 70334) HEPATITIS B CORE IgM (test code NON-REACTIVE = 4644) HEPATITIS B SURF AG (test code = NON-REACTIVE 2739) HEPATITIS C ANTIBODY (test code NON-REACTIVE = 4675) INTERPRETATION HEPATITIS A: (NOTE) (test code = 2552) INTERPRETATION HEPATITIS B: (NOTE) (test code = 20336) INTERPRETATION HEPATITIS C: (NOTE) (test code = 54706) ACUTE HEPATITIS [id number] 00:00:00 Test Item Value Reference Range Interpretation Comments HEPATITIS A IgM (test code = NON-REACTIVE 60397) HEPATITIS B CORE IgM (test code NON-REACTIVE = 4644) HEPATITIS B SURF AG (test code = NON-REACTIVE 2739) HEPATITIS C ANTIBODY (test code NON-REACTIVE = 4675) INTERPRETATION HEPATITIS A: (NOTE) (test code = 2552) INTERPRETATION HEPATITIS B: (NOTE) (test code = 02475) INTERPRETATION HEPATITIS C: (NOTE) (test code = 84775) VITAMIN B 12 AND FOLIC [id number] 00:00:00 Test Item Value Reference Range Interpretation Comments VITAMIN B-12 (test code = 2840) 510 PG/ML FOLIC ACID (test code = 2695) >20.0 UG/L VITAMIN B 12 AND FOLIC [id number] 00:00:00 Test Item Value Reference Range Interpretation Comments VITAMIN B-12 (test code = 2840) 510 PG/ML FOLIC ACID (test code = 2695) >20.0 UG/L [id number] 00:00:00 Test Item Value Reference Range Interpretation Comments FERRITIN (test code = 5) 10 NG/ML [id number] 00:00:00 Test Item Value Reference Range Interpretation Comments FERRITIN (test code = 2075) 10 NG/ML IRON BINDING CAPACITY AND IRON AND % [id number] 00:00:00 Test Item Value Reference Range Interpretation Comments IRON, SERUM (test code = 2222) 22 UG/DL UNSATURATED IBC (test code = 12788) 428 UG/DL CALC TOTAL IBC (test code = 7) 450 UG/DL CALC % IRON SAT (test code = 9) 5 % IRON BINDING CAPACITY AND IRON AND % [id number] 00:00:00 Test Item Value Reference Range Interpretation Comments IRON, SERUM (test code = 2222) 22 UG/DL UNSATURATED IBC (test code = 28160) 428 UG/DL CALC TOTAL IBC (test code = 2077) 450 UG/DL CALC % IRON SAT (test code = 2079) 5 % RETICULOCYTE [id number] 00:00:00 Test Item Value Reference Range Interpretation Comments RETICULOCYTE COUNT (test code = 1018) 2.4 % RETICULOCYTE [id number] 00:00:00 Test Item Value Reference Range Interpretation Comments RETICULOCYTE COUNT (test code = 1018) 2.4 % ACUTE HEPATITIS [id number] 00:00:00 Test Item Value Reference Range Interpretation Comments HEPATITIS A IgM (test code = NON-REACTIVE 55348) HEPATITIS B CORE IgM (test code NON-REACTIVE = 4644) HEPATITIS B SURF AG (test code = NON-REACTIVE 6705) HEPATITIS C ANTIBODY (test code NON-REACTIVE = 4675) INTERPRETATION HEPATITIS A: (NOTE) (test code = 2552) INTERPRETATION HEPATITIS B: (NOTE) (test code = 44079) INTERPRETATION HEPATITIS C: (NOTE) (test code = 95922) VITAMIN B 12 AND FOLIC [id number] 00:00:00 Test Item Value Reference Range Interpretation Comments VITAMIN B-12 (test code = 2840) 510 PG/ML FOLIC ACID (test code = 2695) >20.0 UG/L [id number] 00:00:00 Test Item Value Reference Range Interpretation Comments FERRITIN (test code = 2075) 10 NG/ML IRON BINDING CAPACITY AND IRON AND % [id number] 00:00:00 Test Item Value Reference Range Interpretation Comments IRON, SERUM (test code = 2222) 22 UG/DL UNSATURATED IBC (test code = 30382) 428 UG/DL CALC TOTAL IBC (test code = 2077) 450 UG/DL CALC % IRON SAT (test code = 2079) 5 % HEMOGLOBIN [id number] 00:00:00 Test Item Value Reference Range Interpretation Comments HEMOGLOBIN A1c (test code = 83859) 10.7 % HEMOGLOBIN [id number] 00:00:00 Test Item Value Reference Range Interpretation Comments HEMOGLOBIN A1c (test code = 34151) 10.7 % [id number] 00:00:00 Test Item Value Reference Range Interpretation Comments TSH (test code = 2821) 1.060 UIU/ML [id number] 00:00:00 Test Item Value Reference Range Interpretation Comments TSH (test code = 2821) 1.060 UIU/ML COMPREHENSIVE METABOLIC [id number] 00:00:00 Test Item Value Reference Range Interpretation Comments GLUCOSE (test code = 2217) 305 MG/DL BUN (test code = 2208) 10 MG/DL CREATININE (test code = 2214) 0.63 MG/DL eGFR AMER. (test code 134 ML/MIN/1.73 = 36659) eGFR NON- AMER. (test 115 ML/MIN/1.73 code = 64131) CALC BUN/CREAT (test code = 16 RATIO 2235) SODIUM (test code = 2231) 138 MEQ/L POTASSIUM (test code = 2228) 4.5 MEQ/L CHLORIDE (test code = 2215) 97 MEQ/L CARBON DIOXIDE (test code = 25 MEQ/L 220) CALCIUM (test code = 2209) 9.5 MG/DL PROTEIN, TOTAL (test code = 7.8 G/DL 2228) ALBUMIN (test code = 2201) 4.1 G/DL CALC GLOBULIN (test code = 3.7 G/DL 2240) CALC A/G RATIO (test code = 1.1 RATIO 2234) BILIRUBIN, TOTAL (test code = 0.2 MG/DL 2206) ALKALINE PHOSPHATASE (test 132 U/L code = 2204) AST (test code = 2218) 60 U/L ALT (test code = 2219) 74 U/L COMPREHENSIVE METABOLIC [id number] 00:00:00 Test Item Value Reference Range Interpretation Comments GLUCOSE (test code = 2217) 305 MG/DL BUN (test code = 2208) 10 MG/DL CREATININE (test code = 2214) 0.63 MG/DL eGFR AMER. (test code 134 ML/MIN/1.73 = 74255) eGFR NON- AMER. (test 115 ML/MIN/1.73 code = 44650) CALC BUN/CREAT (test code = 16 RATIO 2235) SODIUM (test code = 2231) 138 MEQ/L POTASSIUM (test code = 2228) 4.5 MEQ/L CHLORIDE (test code = 2215) 97 MEQ/L CARBON DIOXIDE (test code = 25 MEQ/L 2205) CALCIUM (test code = 2209) 9.5 MG/DL PROTEIN, TOTAL (test code = 7.8 G/DL 2228) ALBUMIN (test code = 2201) 4.1 G/DL CALC GLOBULIN (test code = 3.7 G/DL 2240) CALC A/G RATIO (test code = 1.1 RATIO 2234) BILIRUBIN, TOTAL (test code = 0.2 MG/DL 2206) ALKALINE PHOSPHATASE (test 132 U/L code = 2204) AST (test code = 2218) 60 U/L ALT (test code = 2219) 74 U/L LIPID [id number] 00:00:00 Test Item Value Reference Range Interpretation Comments CHOLESTEROL (test code = 2210) 263 MG/DL TRIGLYCERIDES (test code = 2232) 568 MG/DL HDL CHOLESTEROL (test code = 56 MG/DL 2220) CALC LDL CHOL (test code = 2237) NOTE MG/DL RISK RATIO LDL/HDL (test code = (NOTE) RATIO 2238) LIPID [id number] 00:00:00 Test Item Value Reference Range Interpretation Comments CHOLESTEROL (test code = 2210) 263 MG/DL TRIGLYCERIDES (test code = 2232) 568 MG/DL HDL CHOLESTEROL (test code = 56 MG/DL 2220) CALC LDL CHOL (test code = 2237) NOTE MG/DL RISK RATIO LDL/HDL (test code = (NOTE) RATIO 2238) CBC W/AUTO [id number] 00:00:00 Test Item Value Reference Range Interpretation Comments WBC (test code = 1001) 7.4 K/UL RBC (test code = 1002) 5.32 M/UL HEMOGLOBIN (test code = 1003) 9.1 G/DL HEMATOCRIT (test code = 1004) 31.7 % MCV (test code = 1005) 59.6 fL MCH (test code = 1006) 17.1 PG MCHC (test code = 1007) 28.7 G/DL RDW (test code = 1038) 18.9 % NEUTROPHILS (test code = 1008) 67.7 % LYMPHOCYTES (test code = 1010) 24.4 % MONOCYTES (test code = 1011) 4.9 % EOSINOPHILS (test code = 1012) 2.3 % BASOPHILS (test code = 1013) 0.7 % PLATELET COUNT (test code = 1015) 520 K/UL COMMENTS (test code = 1016) (NOTE) CBC W/AUTO [id number] 00:00:00 Test Item Value Reference Range Interpretation Comments WBC (test code = 1001) 7.4 K/UL RBC (test code = 1002) 5.32 M/UL HEMOGLOBIN (test code = 1003) 9.1 G/DL HEMATOCRIT (test code = 1004) 31.7 % MCV (test code = 1005) 59.6 fL MCH (test code = 1006) 17.1 PG MCHC (test code = 1007) 28.7 G/DL RDW (test code = 1038) 18.9 % NEUTROPHILS (test code = 1008) 67.7 % LYMPHOCYTES (test code = 1010) 24.4 % MONOCYTES (test code = 1011) 4.9 % EOSINOPHILS (test code = 1012) 2.3 % BASOPHILS (test code = 1013) 0.7 % PLATELET COUNT (test code = 1015) 520 K/UL COMMENTS (test code = 1016) (NOTE) CBC W/AUTO [id number] 00:00:00 Test Item Value Reference Range Interpretation Comments WBC (test code = 1001) 7.4 K/UL RBC (test code = 1002) 5.32 M/UL HEMOGLOBIN (test code = 1003) 9.1 G/DL HEMATOCRIT (test code = 1004) 31.7 % MCV (test code = 1005) 59.6 fL MCH (test code = 1006) 17.1 PG MCHC (test code = 1007) 28.7 G/DL RDW (test code = 1038) 18.9 % NEUTROPHILS (test code = 1008) 67.7 % LYMPHOCYTES (test code = 1010) 24.4 % MONOCYTES (test code = 1011) 4.9 % EOSINOPHILS (test code = 1012) 2.3 % BASOPHILS (test code = 1013) 0.7 % PLATELET COUNT (test code = 1015) 520 K/UL COMMENTS (test code = 1016) (NOTE) HEMOGLOBIN [id number] 00:00:00 Test Item Value Reference Range Interpretation Comments HEMOGLOBIN A1c (test code = 46480) 10.7 % HEMOGLOBIN [id number] 00:00:00 Test Item Value Reference Range Interpretation Comments HEMOGLOBIN A1c (test code = 79967) 10.7 % HEMOGLOBIN [id number] 00:00:00 Test Item Value Reference Range Interpretation Comments HEMOGLOBIN A1c (test code = 29465) 10.7 % [id number] 00:00:00 Test Item Value Reference Range Interpretation Comments TSH (test code = 2821) 1.060 UIU/ML [id number] 00:00:00 Test Item Value Reference Range Interpretation Comments TSH (test code = 2821) 1.060 UIU/ML [id number] 00:00:00 Test Item Value Reference Range Interpretation Comments TSH (test code = 2821) 1.060 UIU/ML COMPREHENSIVE METABOLIC [id number] 00:00:00 Test Item Value Reference Range Interpretation Comments GLUCOSE (test code = 2217) 305 MG/DL BUN (test code = 2208) 10 MG/DL CREATININE (test code = 2214) 0.63 MG/DL eGFR AMER. (test code 134 ML/MIN/1.73 = 81673) eGFR NON- AMER. (test 115 ML/MIN/1.73 code = 29816) CALC BUN/CREAT (test code = 16 RATIO 2235) SODIUM (test code = 2231) 138 MEQ/L POTASSIUM (test code = 2228) 4.5 MEQ/L CHLORIDE (test code = 2215) 97 MEQ/L CARBON DIOXIDE (test code = 25 MEQ/L 2205) CALCIUM (test code = 2209) 9.5 MG/DL PROTEIN, TOTAL (test code = 7.8 G/DL 2228) ALBUMIN (test code = 2201) 4.1 G/DL CALC GLOBULIN (test code = 3.7 G/DL 2239) CALC A/G RATIO (test code = 1.1 RATIO 2234) BILIRUBIN, TOTAL (test code = 0.2 MG/DL 2206) ALKALINE PHOSPHATASE (test 132 U/L code = 220) AST (test code = 2218) 60 U/L ALT (test code = 2219) 74 U/L LIPID [id number] 00:00:00 Test Item Value Reference Range Interpretation Comments CHOLESTEROL (test code = 2210) 263 MG/DL TRIGLYCERIDES (test code = 2232) 568 MG/DL HDL CHOLESTEROL (test code = 56 MG/DL 2219) CALC LDL CHOL (test code = 2237) NOTE MG/DL RISK RATIO LDL/HDL (test code = (NOTE) RATIO 2238) CBC W/AUTO [id number] 00:00:00 Test Item Value Reference Range Interpretation Comments WBC (test code = 1001) 7.4 K/UL RBC (test code = 1002) 5.32 M/UL HEMOGLOBIN (test code = 1003) 9.1 G/DL HEMATOCRIT (test code = 1004) 31.7 % MCV (test code = 1005) 59.6 fL MCH (test code = 1006) 17.1 PG MCHC (test code = 1007) 28.7 G/DL RDW (test code = 1038) 18.9 % NEUTROPHILS (test code = 1008) 67.7 % LYMPHOCYTES (test code = 1010) 24.4 % MONOCYTES (test code = 1011) 4.9 % EOSINOPHILS (test code = 1012) 2.3 % BASOPHILS (test code = 1013) 0.7 % PLATELET COUNT (test code = 1015) 520 K/UL COMMENTS (test code = 1016) (NOTE) CBC W/AUTO [id number] 00:00:00 Test Item Value Reference Range Interpretation Comments WBC (test code = 1001) 7.4 K/UL RBC (test code = 1002) 5.32 M/UL HEMOGLOBIN (test code = 1003) 9.1 G/DL HEMATOCRIT (test code = 1004) 31.7 % MCV (test code = 1005) 59.6 fL MCH (test code = 1006) 17.1 PG MCHC (test code = 1007) 28.7 G/DL RDW (test code = 1038) 18.9 % NEUTROPHILS (test code = 1008) 67.7 % LYMPHOCYTES (test code = 1010) 24.4 % MONOCYTES (test code = 1011) 4.9 % EOSINOPHILS (test code = 1012) 2.3 % BASOPHILS (test code = 1013) 0.7 % PLATELET COUNT (test code = 1015) 520 K/UL COMMENTS (test code = 1016) (NOTE)
[2023-05-01 06:20] LABS: Absolute Lymphocytes (CBC) 1.6 K/uL (0.7-4.9); Lymphocytes % 19.6 % (15.3-44.8); MCV 64.6 fL (80-100); MPV 8.3 fL (7.6-11.3); Platelets 578 thou/uL (152-406); RBC Red Blood Cell Count 4.95 M/uL (3.86-4.86)
[2023-05-01 06:21] LABS: Protime INR 0.92
[2023-05-01] MEDS ORDERED: ASPIRIN 81 MG CHEWABLE TABLET ONE ×2 (06:38→12:31)
[2023-05-01] MEDS ORDERED: METOPROLOL TARTRATE 5 MG/5 ML INJ IV ONE (06:39)
[2023-05-01] MEDS ORDERED: METOPROLOL TAR 25 MG TAB ONE ×2 (06:39→12:31)
[2023-05-01 06:40] LABS: ALT/SGPT 45 U/L (13-56); AST/SGOT 23 U/L (15-37); Albumin 3.7 g/dL (3.4-5.0); Alkaline Phosphatase 121 U/L (45-117); BUN Blood Urea Nitrogen 8 mg/dL (7-18); Bicarbonate 22 mEq/L (21-32); Bilirubin Total 0.1 mg/dL (0.2-1.0); Glomerular Filtration Rate 104 ml/min (=/>90); Glucose Level 117 mg/dL (74-106); Lipase 95 U/L (13-75); Magnesium 1.9 mg/dL (1.6-2.4); NT PRO-BNP 94 pg/mL (<125); Potassium 3.8 mEq/L (3.5-5.1); Protein, Total 8.8 g/dL (6.4-8.2); Sodium Level 135 mEq/L (136-145); Thyroid Stimulating Hormone 0.264 uIU/mL (0.358-3.740); Troponin High Sensitivity 4.7 pg/mL (<58.9)
[2023-05-01] MEDS ORDERED: ENOXAPARIN 60 MG/0.6 ML SQ ONE (06:40)
[2023-05-01] MEDS ORDERED: NA CHLORIDE 0.9% 1,000 ML ONE (06:40)
[2023-05-01 06:48] LABS: Bilirubin Direct < 0.1 mg/dL (0-0.2); Bilirubin Indirect, Calculated ND mg/dL (0.2-0.8)
--- NOTE | 2023-05-01 06:51 | ER ---
Nurse's Notes [facility] Name: Juliana Marc Age: 43 yrs Sex: Female : 1980 Arrival Date: 05/01/2023 Time: 05:28 Bed 7 Private MD: Diagnosis: Chest pain, unspecified;Essential (primary) hypertension;Tachycardia, unspecified;Disorder of thyroid, unspecified-hyperthyroid Presentation: 05/01 05:42 Chief complaint: Patient states: chest pain woke her from sleep at 0430 mid sternal non kl radiating. Coronavirus screen: Vaccine status: Patient reports receiving the 2nd dose of the covid vaccine. Ebola Screen: Patient negative for fever greater than or equal to 101.5 degrees Fahrenheit, and additional compatible Ebola Virus Disease symptoms. Initial Sepsis Screen: Does the patient meet any 2 criteria? No. Patient's initial sepsis screen is negative. Does the patient have a suspected source of infection? No. Patient's initial sepsis screen is negative. Risk Assessment: Do you want to hurt yourself or someone else? Patient reports no desire to harm self or others. Onset of symptoms was May 01, 2023 at 04:30. 05:42 Method Of Arrival: Ambulatory kl 05:42 Acuity: ADELINA 2 kl Triage Assessment: 05:46 General: Appears distressed, uncomfortable, Behavior is anxious, tearful. Pain: kl Complains of pain in mid-sternal area Pain does not radiate. Pain currently is 8 out of 10 on a pain scale. Quality of pain is described as sharp. EENT: No deficits noted. Neuro: No deficits noted. Cardiovascular: Reports chest pain, Denies diaphoresis, lightheadedness, shortness of breath, Rhythm is sinus tachycardia. Respiratory: No deficits noted. GI: No deficits noted. No signs and/or symptoms were reported involving the gastrointestinal system. : No deficits noted. No signs and/or symptoms were reported regarding the genitourinary system. Historical: - Allergies: 05:43 No Known Allergies; kl - Home Meds: 05:43 atorvastatin 40 mg Oral tab 1 tab once daily [Active]; glimepiride 2 mg oral tablet 2 kl times per day [Active]; lisinopril 40 mg oral tablet 1 tab daily [Active]; metformin 500 mg Oral TG24 1 tab 2 times per day [Active]; levothyroxine 125 mcg oral tablet 1 tab daily [Active]; - PMHx: 05:43 Diabetes - NIDDM; Hyperlipidemia; Hypertension; THYROID CANCER; CVA (THYROID CANCER); kl - PSHx: 05:43 section; kl 05:49 Thyroidectomy; kl - Immunization history:: Adult Immunizations not up to date. - Social history:: Smoking status: Patient denies any tobacco usage or history of. Screenin:53 [facility] ED Fall Risk Assessment (Adult) History of falling in the last 3 months, jw7 including since admission No falls in past 3 months (0 pts) Score/Fall Risk Level 0 - 2 = Low Risk Oriented to surroundings, Maintained a safe environment. Abuse screen: Denies threats or abuse. Denies injuries from another. Nutritional screening: No deficits noted. Tuberculosis screening: No symptoms or risk factors identified. Assessment: 05:54 Pain: Pain began suddenly. jw7 05:55 General: see Triage Assessment. jw7 06:48 Reassessment: Patient appears in no apparent distress at this time. Patient and/or jw7 family updated on plan of care and expected duration. Pain level reassessed. Patient is alert, oriented x 3, equal unlabored respirations, skin warm/dry/pink. Patient states feeling better. 12:03 Reassessment: Patient appears in no apparent distress at this time. Patient and/or tm6 family updated on plan of care and expected duration. Pain level reassessed. 12:03 Pain: Denies pain. tm6 Vital Signs: 05:42 BP 181 / 109; Pulse 119; Resp 18; Temp 98.2(O); Pulse Ox 98% on R/A; Weight 54.43 kg kl (R); Height 5 ft. 4 in. ; Pain 8/10; 05:55 BP 148 / 99; kl 06:48 BP 132 / 89; Pulse 90; Resp 12 S; Pulse Ox 100% on R/A; jw7 12:03 BP 134 / 87; Pulse 89; Resp 20; Pulse Ox 100% on R/A; tm6 05:42 Body Mass Index 20.60 (54.43 kg, 162.56 cm) 05:42 Pain Scale: Adult ED Course: 05:31 Patient arrived in ED. gm2 05:34 Jhonatan Brown, RN is Primary Nurse. bp 05:35 Damien Gonzalez MD is Attending Physician. will 05:43 Triage completed. kl 05:47 EKG completed in triage. Results shown to . kl 05:51 Initial lab(s) drawn, by me, sent to lab. EKG done, by ED staff, reviewed by Damien Gonzalez MD. Inserted saline lock: 20 gauge in right antecubital area, using aseptic technique. Blood collected. 05:53 Patient has correct armband on for positive identification. Placed in gown. Bed in low jw7 position. Call light in reach. Client placed on continuous cardiac and pulse oximetry monitoring. NIBP monitoring applied. 05:53 Patient maintains SpO2 saturation greater than 95% on room air. jw7 05:54 Arm band placed on. jw7 05:57 XRAY Chest (1 view) In Process Unspecified. EDMS 06:40 Radiology exam delayed due to test not completed at this time. 4 06:49 Phoebe Knowles MD is Hospitalizing Provider. will 07:23 CT Chest For PE Angio In Process Unspecified. EDMS 14:26 No provider procedures requiring assistance completed. IV is patent, is intact. tm6 14:27 Provided Education on: need for admit. tm6 14:27 Patient admitted, IV remains in place. tm6 Administered Medications: 06:40 Drug: Metoprolol PO 25 mg PO once {Note: Administered by Alexa Jeong RN.} Route: PO; ld1 06:45 Drug: NS 0.9% IV 1000 ml IV at 1 bolus Per protocol; 1000 mL bolus Route: IV; Rate: 1 jw7 bolus; Site: right antecubital; 06:45 Drug: Aspirin PO Chewable Tablet 162 mg PO once Route: PO; jw7 06:45 Drug: Metoprolol IVP 2.5 mg IVP once; Hold for SBP <100 or HR <60. Route: IVP; Site: jw7 right forearm; 06:45 Drug: Enoxaparin Sub-Q 1 mg/kg Sub-Q once Route: Sub-Q; Site: abdomen; jw7 Medication: 14:27 VIS not applicable for this client. tm6 Outcome: 06:51 Decision to Hospitalize by Provider. will 14:26 Admitted to Med/surg accompanied by tech, family with patient, via wheelchair, tm6 14:26 Condition: stable 14:26 Instructed on the need for admit, 14:45 Patient left the ED. ld1 Signatures: Dispatcher [employer] Marjorie Brown, RN Damien Apodaca MD MD cha Jordan, Nathan nj Peltier, Brian, RN Ericka Shen RN RN ld1 Alexa Olson RN RN 7 [facility] 4 [facility] Christie Perez RN RN tm6 Corrections: (The following items were deleted from the chart) 05:49 05:43 PSHx: Throidectomy; andrea mendez 06:40 06:19 Radiology exam delayed due to test not completed at this time. [email or web address]
--- NOTE | 2023-05-01 06:51 | EDPHYS ---
Physician Documentation [facility] Name: Juliana Marc Age: 43 yrs Sex: Female : 1980 Arrival Date: 05/01/2023 Time: 05:28 Bed 7 Private MD: DOMINGUEZ Physician Damien Gonzalez HPI: 05/01 06:22 This 43 yrs old Female presents to ER via Ambulatory with complaints of Chest will Tightness. 06:22 The patient or guardian reports chest pain that is located primarily in the substernal will area, anterior chest wall, right. Onset: this morning. The pain does not radiate. Associated signs and symptoms: Pertinent positives: shortness of breath. The chest pain is described as a pressure. Modifying factors: The symptoms are alleviated by application of supplemental oxygen, the symptoms are aggravated by nothing. Severity of pain: At its worst the pain was mild moderate in the emergency department the pain has improved mildly. The patient has experienced similar episodes in the past, a few times. Historical: - Allergies: 05:43 No Known Allergies; kl - Home Meds: 05:43 atorvastatin 40 mg Oral tab 1 tab once daily [Active]; glimepiride 2 mg oral tablet 2 kl times per day [Active]; lisinopril 40 mg oral tablet 1 tab daily [Active]; metformin 500 mg Oral TG24 1 tab 2 times per day [Active]; levothyroxine 125 mcg oral tablet 1 tab daily [Active]; - PMHx: 05:43 Diabetes - NIDDM; Hyperlipidemia; Hypertension; THYROID CANCER; CVA (THYROID CANCER); kl - PSHx: 05:43 section; 05:49 Thyroidectomy; kl - Immunization history:: Adult Immunizations not up to date. - Social history:: Smoking status: Patient denies any tobacco usage or history of. ROS: 06:44 Constitutional: Negative for fever, chills, and weight loss, Eyes: Negative for injury, will pain, redness, and discharge, ENT: Negative for injury, pain, and discharge, Neck: Negative for injury, pain, and swelling, Respiratory: Negative for shortness of breath, cough, wheezing, and pleuritic chest pain, Abdomen/GI: Negative for abdominal pain, nausea, vomiting, diarrhea, and constipation, Back: Negative for injury and pain, : Negative for injury, bleeding, discharge, and swelling, MS/Extremity: Negative for injury and deformity, Skin: Negative for injury, rash, and discoloration, Neuro: Negative for headache, weakness, numbness, tingling, and seizure, Psych: Negative for depression, anxiety, suicide ideation, homicidal ideation, and hallucinations, Allergy/Immunology: Negative for hives, rash, and allergies, Endocrine: Negative for neck swelling, polydipsia, polyuria, polyphagia, and marked weight changes, Hematologic/Lymphatic: Negative for swollen nodes, abnormal bleeding, and unusual bruising, 06:44 Cardiovascular: Positive for chest pain, of the chest and mid-sternal area, Exam: 06:44 Constitutional: This is a well developed, well nourished patient who is awake, alert, will and in no acute distress. Head/Face: Normocephalic, atraumatic. Eyes: Pupils equal round and reactive to light, extra-ocular motions intact. Lids and lashes normal. Conjunctiva and sclera are non-icteric and not injected. Cornea within normal limits. Periorbital areas with no swelling, redness, or edema. ENT: Nares patent. No nasal discharge, no septal abnormalities noted. Tympanic membranes are normal and external auditory canals are clear. Oropharynx with no redness, swelling, or masses, exudates, or evidence of obstruction, uvula midline. Mucous membranes moist. Neck: Trachea midline, no thyromegaly or masses palpated, and no cervical lymphadenopathy. Supple, full range of motion without nuchal rigidity, or vertebral point tenderness. No Meningismus. Chest/axilla: Normal chest wall appearance and motion. Nontender with no deformity. No lesions are appreciated. Respiratory: Lungs have equal breath sounds bilaterally, clear to auscultation and percussion. No rales, rhonchi or wheezes noted. No increased work of breathing, no retractions or nasal flaring. Abdomen/GI: Soft, non-tender, with normal bowel sounds. No distension or tympany. No guarding or rebound. No evidence of tenderness throughout. Back: No spinal tenderness. No costovertebral tenderness. Full range of motion. Skin: Warm, dry with normal turgor. Normal color with no rashes, no lesions, and no evidence of cellulitis. MS/ Extremity: Pulses equal, no cyanosis. Neurovascular intact. Full, normal range of motion. Neuro: Awake and alert, GCS 15, oriented to person, place, time, and situation. Cranial nerves II-XII grossly intact. Motor strength 5/5 in all extremities. Sensory grossly intact. Cerebellar exam normal. Normal gait. Psych: Awake, alert, with orientation to person, place and time. Behavior, mood, and affect are within normal limits. 06:44 Cardiovascular: Rate: tachycardic, Rhythm: regular, Pulses: Pulses are 4+ in bilateral radial, brachial, femoral, popliteal, posterior tibial and and dorsalis pedis arteries.. Heart sounds: normal, Edema: is not appreciated, JVD: is not appreciated, 06:44 ECG was reviewed by the Attending Physician. Vital Signs: 05:42 BP 181 / 109; Pulse 119; Resp 18; Temp 98.2(O); Pulse Ox 98% on R/A; Weight 54.43 kg kl (R); Height 5 ft. 4 in. ; Pain 8/10; 05:55 BP 148 / 99; kl 06:48 BP 132 / 89; Pulse 90; Resp 12 S; Pulse Ox 100% on R/A; jw7 12:03 BP 134 / 87; Pulse 89; Resp 20; Pulse Ox 100% on R/A; tm6 05:42 Body Mass Index 20.60 (54.43 kg, 162.56 cm) kl 05:42 Pain Scale: Adult kl MDM: 05:36 Patient medically screened. will 06:47 Antibiotic administration: Not indicated. Differential diagnosis: Anemia CHF will exacerbation, abnormal EKG, acute myocardial infarction, acute pericarditis, anxiety, chest wall pain, Cholelithiasis costochondritis, esophagitis, gastritis, gastroesophageal reflux disease (GERD), hiatal hernia, pancreatitis, peptic ulcer disease, pericarditis, pneumonia, pulmonary embolus, stable angina, unstable angina, pneumonia, pulmonary edema, Pulmonary Embolism Unstable Angina. HEART Score: History: Moderately Suspicious (1), ECG: Normal (0), Age: < or = 45 years (0), Risk Factors: > or = 3 Risk factors for atherosclerotic disease (2), [Hypercholesterolemia] [Hypertension] [DM] [+ Family HX] Troponin: < or = 1 x Normal Limit (0). The patient was given aspirin in the Emergency Department. Immunization status:. Data reviewed: vital signs, nurses notes, lab test result(s), EKG, radiologic studies, plain films. Consideration of Admission/Observation Patient was admitted/placed on observation. Escalation of care including admission/observation considered. 05/01 05:36 Order name: Basic Metabolic Panel; Complete Time: 07:02 [facility] 05/01 05:36 Order name: CBC with Diff [facility] 05/01 05:36 Order name: LFT's; Complete Time: 07:02 [facility] 05/01 05:36 Order name: Magnesium; Complete Time: 07:02 [facility] 05/01 05:36 Order name: NT PRO-BNP; Complete Time: 07:02 [facility] 05/01 05:36 Order name: PT-INR; Complete Time: 07:02 [facility] 05/01 05:36 Order name: Troponin HS; Complete Time: 07:02 [facility] 05/01 05:36 Order name: Urinalysis w/ reflexes [facility] 05/01 05:36 Order name: Test, Urine [facility] 05/01 06:15 Order name: Lipase; Complete Time: 07:02 [facility] 05/01 06:19 Order name: Thyroid Stimulating Hormone; Complete Time: 07:02 [facility] 05/01 06:24 Order name: CBC Smear Scan [facility] 05/01 08:54 Order name: Basic Metabolic Panel [facility] 05/01 08:54 Order name: Basic Metabolic Panel [facility] 05/01 08:54 Order name: CBC with Automated Diff [facility] 05/01 08:54 Order name: CBC with Automated Diff [facility] 05/01 08:54 Order name: Lipid Profile [facility] 05/01 08:54 Order name: Lipid Profile [facility] 05/01 08:54 Order name: Troponin High Sensitivity [facility] 05/01 08:56 Order name: T4 Free [facility] 05/01 05:36 Order name: XRAY Chest (1 view) [facility] 05/01 06:14 Order name: CT Chest For PE Angio [facility] 05/01 08:54 Order name: Echo with Doppler [facility] 05/01 05:36 Order name: EKG; Complete Time: 05:36 [facility] 05/01 05:36 Order name: Cardiac monitoring; Complete Time: 05:46 [facility] 05/01 05:36 Order name: EKG - Nurse/Tech; Complete Time: 05:46 [facility] 05/01 05:36 Order name: IV Saline Lock; Complete Time: 05:52 [facility] 05/01 05:36 Order name: Labs collected and sent; Complete Time: 05:52 will 05/01 05:36 Order name: O2 Per Protocol; Complete Time: 05:52 will 05/01 05:36 Order name: O2 Sat Monitoring; Complete Time: 05:52 will EC:44 Rate is 108 beats/min. Rhythm is regular. QRS [place] is Normal. NE interval is normal. will QRS interval is normal. QT interval is normal. No Q waves. T waves are Normal. No ST changes noted. Clinical impression: Sinus tachycardia and No evidence of ischemia. Interpreted by me. Reviewed by me. Administered Medications: 06:40 Drug: Metoprolol PO 25 mg PO once {Note: Administered by Alexa Jeong RN.} Route: PO; ld1 06:45 Drug: NS 0.9% IV 1000 ml IV at 1 bolus Per protocol; 1000 mL bolus Route: IV; Rate: 1 jw7 bolus; Site: right antecubital; 06:45 Drug: Aspirin PO Chewable Tablet 162 mg PO once Route: PO; jw7 06:45 Drug: Metoprolol IVP 2.5 mg IVP once; Hold for SBP <100 or HR <60. Route: IVP; Site: jw7 right forearm; 06:45 Drug: Enoxaparin Sub-Q 1 mg/kg Sub-Q once Route: Sub-Q; Site: abdomen; jw7 Disposition Summary: 05/01/23 06:51 Hospitalization Ordered Notes: Hospitalization Status: Observation will Provider: Phoebe Knowles cha Condition: Stable will Problem: new will Symptoms: have improved will Bed/Room Type: Standard will Location: Telemetry/MedSurg (observation)(05/01/23 13:36) Room Assignment: [facility](05/01/23 13:36) Diagnosis - Chest pain, unspecified will - Essential (primary) hypertension will - Tachycardia, unspecified will - Disorder of thyroid, unspecified - hyperthyroid will Forms: - Medication Reconciliation Form will - SBAR form will - Leadership Thank You Letter will Signatures: Dispatcher [employer] Marjorie Brown RN RN kl Woody, Diana, RN RN dw Anderson, Corey, MD MD cha Martinez, Eric 1 Ericka Wallace RN RN ld1 Alexa Olson RN RN jw7 Corrections: (The following items were deleted from the chart) 05:49 05:43 PSHx: Throidectomy; kl kl 06:15 06:04 LIPASE+C.LAB.BRZ ordered. EDMS EDMS 06:17 06:15 THYROID STIMULAT HORMONE+C.LAB.BRZ ordered. EDMS EDMS 08:54 08:54 Troponin High Sensitivity ordered. EDMS EDMS 08:54 08:54 Troponin High Sensitivity ordered. EDMS EDMS 08:54 08:54 Troponin High Sensitivity ordered. EDMS EDMS 13:13 06:51 Telemetry/MedSurg (observation) will em1 13:13 06:51 will em1 13:14 13:13 em1 em1 13:36 13:13 [facility] ER HOLD em1 dw 13:36 13:14 ERHOLD- em1 dw
--- NOTE | 2023-05-01 08:14 | RAD REPORT ---
EXAM DESCRIPTION: CT - Chest For Pe Angio - 05/01/2023 7:21 am CLINICAL HISTORY: Chest pain. CHEST PAIN COMPARISON: <Comparisons> TECHNIQUE: CT angiogram of the pulmonary arteries was performed with MIP. All CT scans are performed using dose optimization technique as appropriate and may include automated exposure control or mA/KV adjustment according to patient size. FINDINGS: No evidence of pulmonary thromboembolism. No acute aortic finding demonstrated. The lungs are clear. No significant pericardial or pleural fluid. No concerning bony finding. IMPRESSION: No evidence of pulmonary thromboembolism. No acute lung findings.
[2023-05-01 08:23] LABS: Blood Morphology Comment NOTED (NOT SEEN); Platelet Estimate ADEQ; White Blood Cell Scan OK (OK)
[2023-05-01 08:24] LABS: Anisocytosis 2+; Hypochromasia 2+
[2023-05-01] MEDS ORDERED: MORPHINE 2 MG/ML SYR IV PRN (08:50)
--- NOTE | 2023-05-01 08:53 | P.HP ---
Certification for Inpatient Patient admitted to: Observation With expected LOS: <2 Midnights Patient will require the following post-hospital care: None Practitioner: I am a practitioner with admitting privileges, knowledge of patient current condition, hospital course, and medical plan of care. Services: Services provided to patient in accordance with Admission requirements found in Title 42 Section 412.3 of the Code of Federal Regulations Patient History Date of Service: 05/01/23 Reason for admission: Chest pain rule out acute coronary syndrome History of Present Illness: Patient is a 43-year-old female who came to the hospital with chest discomfort. Patient actually described as chest pressure. She has a history of diabetes, hypertension, dyslipidemia, and she had a prior stroke. She is also had a brother with prior sudden at the age of 40. She came to the emergency room for further evaluation. In the ER her serial troponins have been negative. Patient denies any diaphoresis, shortness of breath, nausea, or vomiting. At this time, we will admit the patient to the hospital for further work-up. Allergies No Known Allergies Allergy (Unverified 04/10/21 20:04) Home Medications: Glimepiride 2 mg PO BID 04/10/21 Lisinopril [Zestril] 40 mg PO DAILY 04/10/21 Metformin HCl 500 mg PO BID 04/10/21 Atorvastatin Calcium [Lipitor] 40 mg PO BEDTIME 30 Days #30 tab 04/11/21 Levothyroxine [Synthroid*] 125 mcg PO [id number] 04/11/21 Metoprolol Tartrate [Lopressor*] 25 mg PO BID #60 tab 05/02/23 - Past Medical/Surgical History Diabetic: Yes -: Hypertension -: DM2 -: HLD -: Anxiety disorder -: Thyroid CA -: Throidectomy - Family History Father Family History: Reviewed- Non-Contributory Brother Medical History: Other (see notes) (Sudden ) - Social History Smoking Status: Never smoker Alcohol use: No CD- Drugs: No Caffeine use: No Review of Systems 10-point ROS is otherwise unremarkable Physical Examination - Vital Signs Temperature: 98 F (Reviewed) - Physical Exam General: Alert, In no apparent distress, Oriented x3 HEENT: Atraumatic, PERRLA, Mucous membr. moist/pink, EOMI, Sclerae nonicteric Neck: Supple, 2+ carotid pulse no bruit, No LAD, Without JVD or thyroid abnormality Respiratory: Clear to auscultation bilaterally, Normal air movement Cardiovascular: Regular rate/rhythm, Normal S1 S2 Gastrointestinal: Normal bowel sounds, Soft and benign, Non-distended, No tenderness Musculoskeletal: No clubbing, No swelling, No tenderness Integumentary: No rashes Neurological: Normal gait, Normal speech, Normal strength at 5/5 x4 extr, Normal tone, Sensation intact, Cranial nerves 3-12 intact, Normal affect Lymphatics: No axilla or inguinal lymphadenopathy - Studies Laboratory Data (last 24 hrs) 05/01/23 05/01/23 05/01/23 06:04 05:50 05:50 WBC 8.30 Hgb 10.3 L Hct 32.0 L Plt Count 578 H PT 10.1 INR 0.92 Sodium Potassium BUN Creatinine Glucose Magnesium Total Bilirubin AST ALT Alkaline Phosphatase Lipase Cancelled 05/01/23 05:50 WBC Hgb Hct Plt Count PT INR Sodium 135 L Potassium 3.8 BUN 8 Creatinine 0.74 Glucose 117 H Magnesium 1.9 Total Bilirubin 0.1 L AST 23 ALT 45 Alkaline Phosphatase 121 H Lipase 95 H Assessment & Plan - Problems (Diagnosis) (1) Chest pain, rule out acute myocardial infarction Current Visit: Yes Status: Acute (2) Type 2 diabetes mellitus Current Visit: Yes Status: Acute (3) Hypertension Current Visit: Yes Status: Acute (4) Hyperlipidemia Current Visit: Yes Status: Acute (5) History of CVA (cerebrovascular accident) Current Visit: Yes Status: Acute - Plan -High-sensitivity troponin -Cardiology consultation -Echocardiogram and stress test -Repeat EKG -Lipid profile -[place] regarding modifying risk for cardiac disease Discharge Plan: Home Plan to discharge in: 24 Hours - Advance Directives Does patient have a Living Will: No Does patient have a Durable POA for Healthcare: No - Code Status/Comfort Care Code Status Assessed: Yes Code Status: Full Code Critical Care: No Time Spent Managing PTS Care (In Minutes): 45
[2023-05-01] MEDS: ASPIRIN EC 81 MG TAB PO SCH (09:00)
[2023-05-01] MEDS: METOPROLOL TAR 25 MG TAB PO SCH ×2 (09:00→20:35)
[2023-05-01] MEDS: ENOXAPARIN 40 MG/0.4 ML SQ SCH (09:00)
--- NOTE | 2023-05-01 09:45 | EKG ---
Test Date: 2023-05-01 Test Time: 05:42:17 [employer] Worker: CLEEMNTE MEASUREMENT RESULTS: Intervals: Rate: 108 NC: 136 QRSD: 78 QT: 356 QTc: 477 [place]: P: 64 NC: 136 QRS: 58 T: 54 INTERPRETIVE STATEMENTS: Sinus tachycardia Otherwise normal ECG Compared to ECG 05/28/2021 08:20:43 Sinus rhythm no longer present Electronically Signed On 05-01-23 09:44:47 CDT by Ben Suarez
--- NOTE | 2023-05-01 10:16 | RAD REPORT ---
EXAM DESCRIPTION: XR Chest, 1 View CLINICAL HISTORY: The patient is 43 years old and is Female; CHEST PAIN TECHNIQUE: Frontal view of the chest. COMPARISON: No relevant prior studies available. FINDINGS: Lungs: Unremarkable. No consolidation. Pleural space: Unremarkable. No pneumothorax. Heart: Unremarkable. Mediastinum: Unremarkable. Bones/joints: No acute findings. IMPRESSION: No acute findings in the chest. Electronically signed by: Israel Guerrero MD 05/01/2023 6:04 AM CDT Due to temporary technical issues with the PACS/Fluency reporting system, reports are being signed by the in house radiologist without review as a courtesy to ensure prompt reporting. The interpreting r adiologist is fully responsible for the content of the report.
[2023-05-01] MEDS ORDERED: ENOXAPARIN 40 MG/0.4 ML SQ ONE (12:31)
--- NOTE | 2023-05-01 13:24 | ECHO ---
HEIGHT: 5 ft 4 in WEIGHT: 119 lb 15.962 oz DATE OF STUDY: 05/01/[address]: Phoebe Knowles MD 2-DIMENSIONAL: YES M.MODE: YES DOPPLER: YES COLOR FLOW: YES TDS: PORTABLE: YES DEFINITY: BUBBLE STUDY: DIAGNOSIS: CHEST PAIN CARDIAC HISTORY: CATHERIZATION: NO SURGERY: NO PROSTHETIC VALVE: NO PACEMAKER: NO MEASUREMENTS (cm) DIASTOLIC (NORMALS) SYSTOLIC (NORMALS) IVSd 0.8 (0.6-1.2) LA Diam 2.8 (1.9-4.0) LVEF 57% LVIDd 3.7 (3.5-5.7) LVIDs 2.6 (2.0-3.5) %FS 29% LVPWd 0.8 (0.6-1.2) Ao Diam 2.4 (2.0-3.7) 2 DIMENSIONAL ASSESSMENT: RIGHT ATRIUM: NORMAL LEFT ATRIUM: NORMAL RIGHT VENTRICLE: NORMAL LEFT VENTRICLE: NORMAL TRICUSPID VALVE: TRACE TRICUSPID REGURGITATION MITRAL VALVE: TRACE MITRAL REGURGITATION PULMONIC VALVE: NORMAL AORTIC VALVE: NORMAL PERICARDIAL EFFUSION: NONE AORTIC ROOT: NORMAL LEFT VENTRICULAR WALL MOTION: NORMAL DOPPLER/COLOR FLOW: SEE BELOW COMMENTS: 1. NORMAL LEFT VENTRICULAR EJECTION FRACTION 55-60% 2. NORMAL WALL MOTION 3. TRACE MITRAL REGURGITATION 4. TRACE TRICUSPID REGURGITATION TECHNOLOGIST: KASANDRA GIANG
[2023-05-01 14:10] VITALS: BMI 20.4
[2023-05-01 14:18] LABS: Troponin High Sensitivity 4.8 pg/mL (<58.9)
[2023-05-01 15:33] VITALS: O2SAT 100
[2023-05-01] MEDS: METFORMIN HCL 500 MG TAB PO SCH (20:00)
[2023-05-01] MEDS: GLIMEPIRIDE 2 MG TABLET PO SCH (20:35)
[2023-05-01] MEDS ORDERED: HOME MED 1 EA UNK (Glimepiride [Glimepiride] 4 MG Tablet) PO SCH (21:00)
[2023-05-01] MEDS ORDERED: ATORVASTATIN 40 MG TAB PO SCH (21:00)
[2023-05-02 03:32] LABS: Absolute Lymphocytes (CBC) 2.2 K/uL (0.7-4.9); Hematocrit 26.6 % (36.0-45.0); Lymphocytes % 28.7 % (15.3-44.8); MPV 8.1 fL (7.6-11.3); Platelets 511 thou/uL (152-406); RBC Red Blood Cell Count 4.15 M/uL (3.86-4.86)
[2023-05-02 03:55] LABS: Potassium 3.9 mEq/L (3.5-5.1)
[2023-05-02] MEDS: LEVOTHYROXINE SOD 0.125 MG TAB PO SCH ×2 (05:35→09:14)
[2023-05-02] MEDS ORDERED: REGADENOSON 0.4 MG/5 ML SYR IV ONE (07:42)
[2023-05-02] MEDS: METFORMIN HCL 500 MG TAB PO SCH (08:00)
[2023-05-02 08:54] VITALS: TEMP 98
--- NOTE | 2023-05-02 08:59 | P.DS ---
Discharge Date: 05/02/23 Disposition: ROUTINE DISCHARGE Discharge Condition: GOOD Reason for Admission: Chest pain rule out acute coronary syndrome - Problems (1) Chest pain, rule out acute myocardial infarction Current Visit: Yes Status: Acute (2) Type 2 diabetes mellitus Current Visit: Yes Status: Acute (3) Hypertension Current Visit: Yes Status: Acute (4) Hyperlipidemia Current Visit: Yes Status: Acute (5) History of CVA (cerebrovascular accident) Current Visit: Yes Status: Acute Brief History of Present Illness: Patient is a 43-year-old female who came to the hospital with chest discomfort. Patient actually described as chest pressure. She has a history of diabetes, hypertension, dyslipidemia, and she had a prior stroke. She is also had a brother with prior sudden at the age of 40. She came to the emergency room for further evaluation. In the ER her serial troponins have been negative. Patient denies any diaphoresis, shortness of breath, nausea, or vomiting. At this time, we will admit the patient to the hospital for further work-up. Hospital Course: Patient's troponins were negative. Echocardiogram was completed. Patient was advised to get a stress test because of her risk factors; however, patient refused after talking to the nuclear power reactor operator. She did not want to be exposed to the medication and not be allowed around her family. She stated that she did not want any further testing and she wanted to go home and see her ship washer as an outpatient. At this time, patient is stable for discharge. We did reiterate to her the risk of not getting further testing especially with her family history. Hopefully, she will comply with outpatient follow-up sooner than later. If she starts having chest pain or chest pressure she is advised to return to the emergency room. Vital Signs/Physical Exam: Temp Pulse Resp BP Pulse Ox 98 F 74 16 112/67 100 05/02/23 08:54 05/02/23 04:00 05/02/23 04:00 05/02/23 04:00 05/02/23 04:00 General: Alert, In no apparent distress, Oriented x3 Laboratory Data at Discharge: WBC 7.70 thou/uL (4.3-10.9) 05/02/23 02:34 Hgb 8.7 g/dL (12.0-15.0) L D 05/02/23 02:34 Hct 26.6 % (36.0-45.0) L 05/02/23 02:34 Plt Count 511 thou/uL (152-406) H 05/02/23 02:34 PT 10.1 SECONDS (9.5-12.5) 05/01/23 05:50 INR 0.92 05/01/23 05:50 Sodium 138 mEq/L (136-145) 05/02/23 02:34 Potassium 3.9 mEq/L (3.5-5.1) 05/02/23 02:34 BUN 11 mg/dL (7-18) 05/02/23 02:34 Creatinine 0.68 mg/dL (0.55-1.02) 05/02/23 02:34 Glucose 102 mg/dL (74-106) 05/02/23 02:34 Magnesium 1.9 mg/dL (1.6-2.4) 05/01/23 05:50 Total Bilirubin 0.1 mg/dL (0.2-1.0) L 05/01/23 05:50 AST 23 U/L (15-37) 05/01/23 05:50 ALT 45 U/L (13-56) 05/01/23 05:50 Alkaline Phosphatase 121 U/L (45-117) H 05/01/23 05:50 Triglycerides 194 mg/dL (<150) H 05/01/23 13:52 Cholesterol 150 mg/dL (<200) 05/01/23 13:52 HDL Cholesterol 39 mg/dL (40-60) L 05/01/23 13:52 Cholesterol/HDL Ratio 3.85 05/01/23 13:52 Lipase Cancelled 05/01/23 06:04 Home Medications: Glimepiride 2 mg PO BID 04/10/21 Lisinopril [Zestril] 40 mg PO DAILY 04/10/21 Metformin HCl 500 mg PO BID 04/10/21 Atorvastatin Calcium [Lipitor] 40 mg PO BEDTIME 30 Days #30 tab 04/11/21 Levothyroxine [Synthroid*] 125 mcg PO [id number] 04/11/21 Metoprolol Tartrate [Lopressor*] 25 mg PO BID #60 tab 05/02/23 New Medications: Metoprolol Tartrate [Lopressor*] 25 mg PO BID #60 tab Physician Discharge Instructions: -DC IV and DC home -Follow-up with PCP in 1 to 2 weeks -Follow-up with Cardiology in 1 to 2 weeks -Please call Dr. Knowles at [phone] if any questions regarding hospital stay -Please call nursing station at [phone] if any nursing or medication questions -Return to the emergency room if symptoms worsen Diet: ADA (Heart healthy diet as well) Activity: Fall precautions Followup: NONE,NONE [Primary Care Provider] - Time spent managing pt's care (in minutes): 35
[2023-05-02] MEDS ORDERED: lisinopriL 20 MG TAB PO SCH (09:00)
[2023-05-02] MEDS: METOPROLOL TAR 25 MG TAB PO SCH (09:00)
[2023-05-02] MEDS: GLIMEPIRIDE 2 MG TABLET PO SCH (09:14)
[2023-05-02] MEDS: ASPIRIN EC 81 MG TAB PO SCH (09:15)
[2023-05-02] MEDS: ENOXAPARIN 40 MG/0.4 ML SQ SCH (09:16)
[2023-05-02 09:19] VITALS: BP 115/67
== END 2023-05-02 10:44 | disposition home or self-care (01) ==
LOC: ER 05:28 → ERHOLD 08:50 → 2ND 13:57
PROVIDERS: ADMIT Hospitalist; ATTEND Hospitalist
DX: R07.9 Chest pain, unspecified (principal); E11.9 Type 2 diabetes mellitus without complications; I10 Essential (primary) hypertension; E78.5 Hyperlipidemia, unspecified; Z86.73 Personal history of transient ischemic attack (TIA), and cerebral infarction without residual deficits; Z79.890 Hormone replacement therapy; Z85.850 Personal history of malignant neoplasm of thyroid
CPT/HCPCS: 36415; 71045; 71275; 80048; 80061; 80076; 82947; 83690; 83735; 83880; 84439; 84443; 84484; 85025; 85610; 93005; 93306; 96372; 96374; 99285; G0378; J1650; J2785; J7030; Q9967